=== PATIENT | male | born 1945 | race Caucasian/White ===

== ENCOUNTER → 2016-06-28 | Outpatient (CLI) | payer OTHER ==
[~2016-06-28] MED LIST: ALBU83IN INH; AMLO5TAB2 PO; ASPI81TA85 PO; AZIT250T3 PO; BUDE0.5S6 INH; CEFD1CAP8 PO; FURO20TA2 PO; NEUR300C PO; OMEP20CA3 PO; PERF20NE2 INH; POTA10TA34 PO; PRED10TA PO; PRED20TA PO; PROA1AER INH; VITA100066 PO
--- NOTE | 2016-06-28 09:18 | REP ---
Chest x-ray: Two views. History: Pulmonary disease with acute exacerbation. Comparison study: April 28, 2015. Findings: The lungs are quite hyperinflated consistent with evidence of COPD. Interstitial markings remain prominent diffusely. There is pleuroparenchymal fibrosis and bullous change in the right apex as on the prior radiograph. The heart is not enlarged. The aorta is a little calcific and somewhat tortuous. No significant bony abnormality is seen. Impression: Hyperinflation, diffuse interstitial fibrosis pattern and pleuroparenchymal scarring and bullous change right apex. No acute abnormality. Signed by Waldemar Lee MD 06/28/2016 11:16 A
[2016-06-28 10:18] LABS: BASO % 0.4 % (0.0-1.0); EOS # 0.1 K/mm3 (0.0-0.50); EOS % 0.8 % (0.0-3.0); LARGE UNSTAINED CELL # 0.1 K/mm3 (0.0-0.4); LARGE UNSTAINED CELL % 0.9 % (0.0-4.0); LYMPH # 1.4 K/mm3 (1.5-4.5); LYMPH % 13.7 % (24.0-44.0); MEAN CORPUSCULAR HEMOGLOBIN 32.9 pg (27.0-33.0); MEAN CORPUSCULAR HGB CONC 32.3 g/dl (32.0-36.5); MEAN CORPUSCULAR VOLUME 101.7 fl (80.0-96.0); MONO # 0.7 K/mm3 (0.0-0.8); MONO % 7.6 % (0.0-5.0); NEUTROPHILS # 7.5 K/mm3 (1.8-7.7); NEUTROPHILS % 76.6 % (36.0-66.0); PLATELET COUNT, AUTOMATED 390 k/mm3 (150-450); RED CELL DISTRIBUTION WIDTH 12.9 % (11.5-14.5); WHITE BLOOD COUNT 9.8 K/mm3 (4.0-10.0)
[2016-06-28 10:32] LABS: ALBUMIN 3.1 GM/DL (3.2-5.2); ALBUMIN/GLOBULIN RATIO 0.78 (1.00-1.93); ALKALINE PHOSPHATASE 79 U/L (45-117); ALT/SGPT 35 U/L (12-78); ANION GAP 7 MEQ/L (8-16); AST/SGOT 22 U/L (15-37); BILIRUBIN,TOTAL 0.3 MG/DL (0.2-1.0); BLOOD UREA NITROGEN 16 MG/DL (7-18); CALCIUM LEVEL 9.4 MG/DL (8.8-10.2); CARBON DIOXIDE LEVEL 40 MEQ/L (21-32); CHLORIDE LEVEL 97 MEQ/L (98-107); CREATININE FOR GFR 0.84 MG/DL (0.70-1.30); GLOMERULAR FILTRATION RATE > 60.0 (>49); GLUCOSE, FASTING 91 MG/DL (80-110); POTASSIUM SERUM 3.9 MEQ/L (3.5-5.1); SODIUM LEVEL 144 MEQ/L (136-145); TOTAL PROTEIN 7.1 GM/DL (6.4-8.2)
== END ==
LOC: M WUC 08:38
PROVIDERS: ATTEND Family Medicine
DX: J44.1 Chronic obstructive pulmonary disease with (acute) exacerbation (principal)

== ENCOUNTER 2017-03-26 07:29 | Inpatient (IN) | payer OTHER ==
[2017-03-26 08:02] LABS: BASO % 0.5 % (0.0-1.0); EOS # 0.1 10^3/uL (0.0-0.50); EOS % 0.7 % (0.0-3.0); HEMATOCRIT 42.2 % (42.0-52.0); HEMOGLOBIN 13.5 g/dl (14.0-18.0); IMMATURE GRANULOCYTE % 0.4 % (0-3.0); LYMPH # 1.3 10^3/uL (1.5-4.5); LYMPH % 18.1 % (24.0-44.0); MONO % 12.9 % (0.0-5.0); NEUTROPHILS % 67.4 % (36.0-66.0); PLATELET COUNT, AUTOMATED 258 10^3/uL (150-450); RED BLOOD COUNT 4.22 10^6/uL (4.30-6.10); RED CELL DISTRIBUTION WIDTH 13.2 % (11.5-14.5); WHITE BLOOD COUNT 7.4 10^3/uL (4.0-10.0)
[2017-03-26] MEDS: IPRATROPIUM 0.5MG/ALBUTEROL 2.5MG INH SOL UD 3ML (DUONEB)(J7620) NEB ×7 (08:10→23:27)
[2017-03-26 08:19] LABS: ABG BASE EXCESS 9.6 (-2.0-2.0); ABG HCO3 36.3 MEQ/L (22.0-26.0); ABG O2 SATURATION 93.9 % (95.0-99.0); ABG PARTIAL PRESSURE CO2 58.3 mmHg (35.0-45.0); ABG PARTIAL PRESSURE O2 66.5 mmHg (75.0-100.0); ABG STANDARD HCO3 33.2 MEQ/L (22.0-26.0); ABG TOTAL CO2 38.1 MEQ/L (23.0-31.0); ABG pH (ARTERIAL) 7.412 UNITS (7.350-7.450)
[2017-03-26 08:23] LABS: LACTIC ACID SEPSIS PROTOCOL 0.9 MMOL/L (0.4-2.0)
[2017-03-26 08:23] LABS: ANION GAP 6 MEQ/L (8-16); BLOOD UREA NITROGEN 23 MG/DL (7-18); CALCIUM LEVEL 8.8 MG/DL (8.8-10.2); CARBON DIOXIDE LEVEL 37 MEQ/L (21-32); CHLORIDE LEVEL 98 MEQ/L (98-107); CPK CREATINE PHOSPHOKINASE 148 U/L (39-308); CREATININE FOR GFR 1.08 MG/DL (0.70-1.30); GLOMERULAR FILTRATION RATE > 60.0 (>49); GLUCOSE, FASTING 107 MG/DL (70-100); MB/CK RELATIVE INDEX 0.67 (< OR =4); POTASSIUM SERUM 3.9 MEQ/L (3.5-5.1); SODIUM LEVEL 141 MEQ/L (136-145); TROPONIN I 0.73 NG/ML (< 0.10)
[2017-03-26] MEDS: ACETAMINOPHEN 650 MG SUPP PR (08:27)
[2017-03-26] MEDS: ACETAMINOPHEN TAB 650MG DOSE (2X325MG) PO (08:27)
[2017-03-26 08:46] LABS: INFLUENZA A AMPLIFICATION NEGATIVE (NEGATIVE); INFLUENZA B AMPLIFICATION NEGATIVE (NEGATIVE)
[2017-03-26] MEDS ORDERED: OCUVITE 1 TAB PO (09:00)
[2017-03-26 09:58] LABS: ETHYL ALCOHOL (ETHANOL) < 0.003 % (0.000-0.010)
[2017-03-26 10:38] LABS: CK-MB VALUE MASS 1.1 NG/ML (0.0-3.6); CPK CREATINE PHOSPHOKINASE 167 U/L (39-308); MB/CK RELATIVE INDEX 0.65 (< OR =4); TROPONIN I 0.66 NG/ML (< 0.10)
[2017-03-26] MEDS ORDERED: IPRATROPIUM 0.5MG/ALBUTEROL 2.5MG INH SOL UD 3ML (DUONEB)(J7620) NEB (11:30)
[2017-03-26] MEDS ORDERED: ACETAMINOPHEN TAB 650MG DOSE (2X325MG) PO (11:30)
[2017-03-26] MEDS ORDERED: ONDANSETRON 4MG/2ML VIAL (J2405) IV (11:30)
[2017-03-26] MEDS ORDERED: BENZONATATE 100 MG CAP PO (12:00)
[2017-03-26] MEDS ORDERED: guaiFENesin DM LIQ 10ML UD PO (12:00)
[2017-03-26] MEDS ORDERED: ALPRAZolam 0.25 MG TAB PO (12:30)
[2017-03-26] MEDS: FUROSEMIDE 20 MG TAB PO (12:49)
[2017-03-26] MEDS: OMEPRAZOLE 20 MG CAP PO (12:49)
[2017-03-26] MEDS: LISINOPRIL 10 MG TAB PO (12:50)
[2017-03-26] MEDS: methylPREDNISolone INJ 125 MG/2 ML VIAL (J2930) IV ×2 (12:50→20:34)
[2017-03-26] MEDS: GABAPENTIN 300 MG CAP PO ×2 (12:51→20:34)
[2017-03-26] MEDS ORDERED: HEPARIN SOD (PORCINE) 5000 UNITS/ML VIAL SC (14:00)
[2017-03-26] MEDS: ALPRAZolam 0.25 MG TAB PO (15:12)
[2017-03-26] MEDS: VITAMIN D 1,000 INTERNATIONAL UNITS TABLET PO (15:12)
[2017-03-26 16:27] LABS: CPK CREATINE PHOSPHOKINASE 225 U/L (39-308)
[2017-03-26 16:28] LABS: CK-MB VALUE MASS 2.2 NG/ML (0.0-3.6); MB/CK RELATIVE INDEX 0.97 (< OR =4)
[2017-03-26] MEDS: ATORVASTATIN 20 MG TAB PO (20:34)
[2017-03-26] MEDS: ALPRAZolam 0.5 MG TAB PO (20:34)
[2017-03-26] MEDS: SYMBICORT 160/4.5MCG INHALER 6GM INH (20:40)
[2017-03-27 00:44] LABS: CK-MB VALUE MASS 3.4 NG/ML (0.0-3.6); CPK CREATINE PHOSPHOKINASE 195 U/L (39-308); MB/CK RELATIVE INDEX 1.74 (< OR =4)
[2017-03-27] MEDS: IPRATROPIUM 0.5MG/ALBUTEROL 2.5MG INH SOL UD 3ML (DUONEB)(J7620) NEB ×6 (03:10→23:10)
[2017-03-27] MEDS: methylPREDNISolone INJ 125 MG/2 ML VIAL (J2930) IV ×3 (04:11→20:45)
[2017-03-27] MEDS: SYMBICORT 160/4.5MCG INHALER 6GM INH ×2 (07:41→18:36)
[2017-03-27] MEDS: ASPIRIN 81 MG ENTERIC TAB PO (08:09)
[2017-03-27] MEDS: ALPRAZolam 0.25 MG TAB PO (08:10)
[2017-03-27] MEDS: GABAPENTIN 300 MG CAP PO ×2 (08:10→20:45)
[2017-03-27] MEDS: FUROSEMIDE 20 MG TAB PO (08:10)
[2017-03-27] MEDS: OMEPRAZOLE 20 MG CAP PO (08:11)
[2017-03-27] MEDS: VITAMIN D 1,000 INTERNATIONAL UNITS TABLET PO (08:11)
[2017-03-27] MEDS: LISINOPRIL 10 MG TAB PO (08:11)
[2017-03-27 08:18] LABS: HEMATOCRIT 39.9 % (42.0-52.0); HEMOGLOBIN 12.8 g/dl (14.0-18.0); MEAN CORPUSCULAR HEMOGLOBIN 31.4 pg (27.0-33.0); MEAN CORPUSCULAR HGB CONC 32.1 g/dl (32.0-36.5); MEAN CORPUSCULAR VOLUME 97.8 fl (80.0-96.0); PLATELET COUNT, AUTOMATED 245 10^3/uL (150-450); RED BLOOD COUNT 4.08 10^6/uL (4.30-6.10); RED CELL DISTRIBUTION WIDTH 13.1 % (11.5-14.5); WHITE BLOOD COUNT 12.6 10^3/uL (4.0-10.0)
[2017-03-27 08:42] LABS: ALBUMIN 2.8 GM/DL (3.2-5.2); ALKALINE PHOSPHATASE 61 U/L (45-117); ALT/SGPT 21 U/L (12-78); ANION GAP 10 MEQ/L (8-16); AST/SGOT 23 U/L (7-37); BILIRUBIN,TOTAL 0.2 MG/DL (0.2-1.0); BLOOD UREA NITROGEN 31 MG/DL (7-18); CALCIUM LEVEL 8.8 MG/DL (8.8-10.2); CARBON DIOXIDE LEVEL 36 MEQ/L (21-32); CHLORIDE LEVEL 95 MEQ/L (98-107); CPK CREATINE PHOSPHOKINASE 203 U/L (39-308); CREATININE FOR GFR 1.08 MG/DL (0.70-1.30); GLOMERULAR FILTRATION RATE > 60.0 (>49); GLUCOSE, FASTING 164 MG/DL (70-100); MAGNESIUM LEVEL 2.1 MG/DL (1.8-2.4); POTASSIUM SERUM 3.7 MEQ/L (3.5-5.1); SODIUM LEVEL 141 MEQ/L (136-145); TOTAL PROTEIN 6.8 GM/DL (6.4-8.2); TROPONIN I 0.14 NG/ML (< 0.10)
[2017-03-27 08:43] LABS: MB/CK RELATIVE INDEX 1.97 (< OR =4)
[2017-03-27] MEDS: ATORVASTATIN 20 MG TAB PO (20:45)
[2017-03-27] MEDS: ALPRAZolam 0.5 MG TAB PO (20:45)
[2017-03-28] MEDS: IPRATROPIUM 0.5MG/ALBUTEROL 2.5MG INH SOL UD 3ML (DUONEB)(J7620) NEB ×6 (03:21→23:53)
[2017-03-28] MEDS: methylPREDNISolone INJ 125 MG/2 ML VIAL (J2930) IV ×3 (04:22→20:54)
[2017-03-28 05:42] LABS: HEMATOCRIT 36.5 % (42.0-52.0); HEMOGLOBIN 11.9 g/dl (14.0-18.0); MEAN CORPUSCULAR HEMOGLOBIN 31.6 pg (27.0-33.0); MEAN CORPUSCULAR HGB CONC 32.6 g/dl (32.0-36.5); MEAN CORPUSCULAR VOLUME 96.8 fl (80.0-96.0); PLATELET COUNT, AUTOMATED 263 10^3/uL (150-450); RED BLOOD COUNT 3.77 10^6/uL (4.30-6.10); RED CELL DISTRIBUTION WIDTH 13.1 % (11.5-14.5); WHITE BLOOD COUNT 12.8 10^3/uL (4.0-10.0)
[2017-03-28 06:00] LABS: ALBUMIN 2.6 GM/DL (3.2-5.2); ALBUMIN/GLOBULIN RATIO 0.59 (1.00-1.93); ALKALINE PHOSPHATASE 58 U/L (45-117); ALT/SGPT 20 U/L (12-78); ANION GAP 7 MEQ/L (8-16); AST/SGOT 17 U/L (7-37); BILIRUBIN,TOTAL 0.2 MG/DL (0.2-1.0); BLOOD UREA NITROGEN 33 MG/DL (7-18); CALCIUM LEVEL 9.5 MG/DL (8.8-10.2); CARBON DIOXIDE LEVEL 37 MEQ/L (21-32); CHLORIDE LEVEL 97 MEQ/L (98-107); CREATININE FOR GFR 0.91 MG/DL (0.70-1.30); GLOMERULAR FILTRATION RATE > 60.0 (>49); GLUCOSE, FASTING 172 MG/DL (70-100); MAGNESIUM LEVEL 2.3 MG/DL (1.8-2.4); POTASSIUM SERUM 3.8 MEQ/L (3.5-5.1); SODIUM LEVEL 141 MEQ/L (136-145)
[2017-03-28] MEDS: SYMBICORT 160/4.5MCG INHALER 6GM INH ×2 (07:18→21:24)
[2017-03-28] MEDS: VITAMIN D 1,000 INTERNATIONAL UNITS TABLET PO (08:58)
[2017-03-28] MEDS: FUROSEMIDE 20 MG TAB PO (08:58)
[2017-03-28] MEDS: OMEPRAZOLE 20 MG CAP PO (08:58)
[2017-03-28] MEDS: LISINOPRIL 10 MG TAB PO (09:00)
[2017-03-28] MEDS: ASPIRIN 81 MG ENTERIC TAB PO (09:01)
[2017-03-28] MEDS: GABAPENTIN 300 MG CAP PO ×2 (09:01→20:54)
[2017-03-28] MEDS: ALPRAZolam 0.5 MG TAB PO (20:54)
[2017-03-28] MEDS: ATORVASTATIN 20 MG TAB PO (20:54)
[2017-03-29] MEDS: IPRATROPIUM 0.5MG/ALBUTEROL 2.5MG INH SOL UD 3ML (DUONEB)(J7620) NEB ×5 (03:45→20:00)
[2017-03-29] MEDS: methylPREDNISolone INJ 125 MG/2 ML VIAL (J2930) IV ×2 (04:22→16:08)
[2017-03-29 06:09] LABS: HEMATOCRIT 35.7 % (42.0-52.0); HEMOGLOBIN 11.6 g/dl (14.0-18.0); MEAN CORPUSCULAR HEMOGLOBIN 31.9 pg (27.0-33.0); MEAN CORPUSCULAR HGB CONC 32.5 g/dl (32.0-36.5); MEAN CORPUSCULAR VOLUME 98.1 fl (80.0-96.0); PLATELET COUNT, AUTOMATED 262 10^3/uL (150-450); RED BLOOD COUNT 3.64 10^6/uL (4.30-6.10); RED CELL DISTRIBUTION WIDTH 13.2 % (11.5-14.5); WHITE BLOOD COUNT 8.9 10^3/uL (4.0-10.0)
[2017-03-29 06:32] LABS: ALBUMIN 2.3 GM/DL (3.2-5.2); ALBUMIN/GLOBULIN RATIO 0.53 (1.00-1.93); ALKALINE PHOSPHATASE 57 U/L (45-117); ALT/SGPT 20 U/L (12-78); ANION GAP 5 MEQ/L (8-16); AST/SGOT 13 U/L (7-37); BILIRUBIN,TOTAL 0.2 MG/DL (0.2-1.0); BLOOD UREA NITROGEN 30 MG/DL (7-18); CALCIUM LEVEL 9.6 MG/DL (8.8-10.2); CARBON DIOXIDE LEVEL 38 MEQ/L (21-32); CHLORIDE LEVEL 97 MEQ/L (98-107); GLOMERULAR FILTRATION RATE > 60.0 (>49); GLUCOSE, FASTING 148 MG/DL (70-100); MAGNESIUM LEVEL 2.6 MG/DL (1.8-2.4); POTASSIUM SERUM 3.9 MEQ/L (3.5-5.1); SODIUM LEVEL 140 MEQ/L (136-145); TOTAL PROTEIN 6.6 GM/DL (6.4-8.2)
[2017-03-29] MEDS: SYMBICORT 160/4.5MCG INHALER 6GM INH ×2 (07:27→20:25)
[2017-03-29] MEDS: GABAPENTIN 300 MG CAP PO ×2 (09:33→21:20)
[2017-03-29] MEDS: VITAMIN D 1,000 INTERNATIONAL UNITS TABLET PO (09:33)
[2017-03-29] MEDS: ASPIRIN 81 MG ENTERIC TAB PO (09:33)
[2017-03-29] MEDS: LISINOPRIL 10 MG TAB PO (09:33)
[2017-03-29] MEDS: OMEPRAZOLE 20 MG CAP PO (09:34)
[2017-03-29] MEDS: FUROSEMIDE 20 MG TAB PO (09:34)
[2017-03-29] MEDS: ALPRAZolam 0.5 MG TAB PO (21:20)
[2017-03-29] MEDS: ATORVASTATIN 20 MG TAB PO (21:20)
[2017-03-30] MEDS: IPRATROPIUM 0.5MG/ALBUTEROL 2.5MG INH SOL UD 3ML (DUONEB)(J7620) NEB ×5 (02:41→15:08)
[2017-03-30] MEDS: methylPREDNISolone INJ 125 MG/2 ML VIAL (J2930) IV ×2 (03:49→15:32)
[2017-03-30 07:06] LABS: HEMATOCRIT 36.8 % (42.0-52.0); HEMOGLOBIN 11.7 g/dl (14.0-18.0); MEAN CORPUSCULAR HEMOGLOBIN 31.2 pg (27.0-33.0); MEAN CORPUSCULAR HGB CONC 31.8 g/dl (32.0-36.5); MEAN CORPUSCULAR VOLUME 98.1 fl (80.0-96.0); PLATELET COUNT, AUTOMATED 314 10^3/uL (150-450); RED BLOOD COUNT 3.75 10^6/uL (4.30-6.10); RED CELL DISTRIBUTION WIDTH 13.2 % (11.5-14.5); WHITE BLOOD COUNT 12.4 10^3/uL (4.0-10.0)
[2017-03-30 07:26] LABS: ALBUMIN 2.4 GM/DL (3.2-5.2); ALBUMIN/GLOBULIN RATIO 0.55 (1.00-1.93); ALKALINE PHOSPHATASE 62 U/L (45-117); ALT/SGPT 20 U/L (12-78); ANION GAP 4 MEQ/L (8-16); AST/SGOT 10 U/L (7-37); BILIRUBIN,TOTAL 0.3 MG/DL (0.2-1.0); BLOOD UREA NITROGEN 34 MG/DL (7-18); CALCIUM LEVEL 9.4 MG/DL (8.8-10.2); CARBON DIOXIDE LEVEL 38 MEQ/L (21-32); CHLORIDE LEVEL 99 MEQ/L (98-107); CREATININE FOR GFR 0.79 MG/DL (0.70-1.30); GLOMERULAR FILTRATION RATE > 60.0 (>49); GLUCOSE, FASTING 138 MG/DL (70-100); MAGNESIUM LEVEL 2.4 MG/DL (1.8-2.4); POTASSIUM SERUM 4.1 MEQ/L (3.5-5.1); SODIUM LEVEL 141 MEQ/L (136-145); TOTAL PROTEIN 6.8 GM/DL (6.4-8.2)
[2017-03-30] MEDS: SYMBICORT 160/4.5MCG INHALER 6GM INH (08:14)
[2017-03-30] MEDS: OMEPRAZOLE 20 MG CAP PO (09:10)
[2017-03-30] MEDS: GABAPENTIN 300 MG CAP PO (09:10)
[2017-03-30] MEDS: FUROSEMIDE 20 MG TAB PO (09:11)
[2017-03-30] MEDS: VITAMIN D 1,000 INTERNATIONAL UNITS TABLET PO (09:11)
[2017-03-30] MEDS: ASPIRIN 81 MG ENTERIC TAB PO (09:11)
[2017-03-30] MEDS: LISINOPRIL 10 MG TAB PO (09:11)
== END 2017-03-30 17:00 | disposition home or self-care (01) | DRG 202 ==
LOC: M MS5PR 03-29 16:44 → M ED 07:29 → M ED INP 11:16 → M PCU 13:50
DX: J20.5 Acute bronchitis due to respiratory syncytial virus (principal); J44.1 Chronic obstructive pulmonary disease with (acute) exacerbation; J96.11 Chronic respiratory failure with hypoxia; I31.9 Disease of pericardium, unspecified; I10 Essential (primary) hypertension; K21.9 Gastro-esophageal reflux disease without esophagitis; Z99.81 Dependence on supplemental oxygen; Z79.52 Long term (current) use of systemic steroids; Z88.1 Allergy status to other antibiotic agents; Z79.899 Other long term (current) drug therapy; Z87.891 Personal history of nicotine dependence; G62.9 Polyneuropathy, unspecified

== ENCOUNTER 2017-12-17 11:04 | Emergency (ER) | payer OTHER ==
[2017-12-17] MEDS: ACETAMINOPHEN 325 MG TAB PO (11:46)
[2017-12-17] MEDS: IBUPROFEN 600 MG TAB PO (11:46)
[2017-12-17 11:47] LABS: ABG BASE EXCESS 10.6 (-2.0-2.0); ABG HCO3 36.7 MEQ/L (22.0-26.0); ABG O2 SATURATION 98.2 % (95.0-99.0); ABG PARTIAL PRESSURE CO2 55.1 mmHg (35.0-45.0); ABG PARTIAL PRESSURE O2 104.5 mmHg (75.0-100.0); ABG STANDARD HCO3 34.4 MEQ/L (22.0-26.0); ABG TOTAL CO2 38.4 MEQ/L (23.0-31.0); ABG pH (ARTERIAL) 7.441 UNITS (7.350-7.450); BASO # 0.1 10^3/uL (0.0-0.2); BASO % 0.5 % (0.0-1.0); EOS # 0.2 10^3/uL (0.0-0.50); EOS % 1.5 % (0.0-3.0); HEMATOCRIT 37.7 % (42.0-52.0); HEMOGLOBIN 11.8 g/dl (13.5-17.5); IMMATURE GRANULOCYTE % 0.4 % (0-3.0); LYMPH # 1.4 10^3/uL (1.5-4.5); MEAN CORPUSCULAR HEMOGLOBIN 31.9 pg (27.0-33.0); MEAN CORPUSCULAR HGB CONC 31.3 g/dl (32.0-36.5); MEAN CORPUSCULAR VOLUME 101.9 fl (80.0-96.0); MONO # 1.3 10^3/uL (0.0-0.8); MONO % 11.6 % (0.0-5.0); NEUTROPHILS # 8.4 10^3/uL (1.8-7.7); PLATELET COUNT, AUTOMATED 341 10^3/uL (150-450); RED CELL DISTRIBUTION WIDTH 13.2 % (11.5-14.5); WHITE BLOOD COUNT 11.3 10^3/uL (4.0-10.0)
[2017-12-17 12:01] LABS: INR 1.21; PROTHROMBIN TIME 15.5 SECONDS (12.1-14.4)
[2017-12-17 12:02] LABS: PARTIAL THROMBOPLASTIN TIME 28.5 SECONDS (25.4-37.6)
[2017-12-17 12:34] LABS: ALBUMIN 2.3 GM/DL (3.2-5.2); ALBUMIN/GLOBULIN RATIO 0.45 (1.00-1.93); ALKALINE PHOSPHATASE 106 U/L (45-117); ALT/SGPT 30 U/L (12-78); AMYLASE 59 U/L (25-115); ANION GAP 5 MEQ/L (8-16); AST/SGOT 25 U/L (7-37); BILIRUBIN,DIRECT 0.1 MG/DL (0.0-0.2); BILIRUBIN,TOTAL 0.5 MG/DL (0.2-1.0); BLOOD UREA NITROGEN 16 MG/DL (7-18); CALCIUM LEVEL 9.1 MG/DL (8.8-10.2); CARBON DIOXIDE LEVEL 37 MEQ/L (21-32); CHLORIDE LEVEL 98 MEQ/L (98-107); CPK CREATINE PHOSPHOKINASE 44 U/L (39-308); CREATININE FOR GFR 0.87 MG/DL (0.70-1.30); GLOMERULAR FILTRATION RATE > 60.0 (>42); GLUCOSE, FASTING 109 MG/DL (70-100); MB/CK RELATIVE INDEX 2.73 (< OR =4); POTASSIUM SERUM 4.2 MEQ/L (3.5-5.1); SODIUM LEVEL 140 MEQ/L (136-145); TOTAL PROTEIN 7.4 GM/DL (6.4-8.2); TROPONIN I < 0.02 NG/ML (< 0.10)
[2017-12-17 12:35] LABS: LACTIC ACID SEPSIS PROTOCOL 2.1 MMOL/L (0.4-2.0)
== END 2017-12-17 17:05 | disposition home or self-care (01) ==
LOC: M ED 11:04
DX: J44.1 Chronic obstructive pulmonary disease with (acute) exacerbation (principal); J20.6 Acute bronchitis due to rhinovirus; I10 Essential (primary) hypertension; K21.9 Gastro-esophageal reflux disease without esophagitis; B02.29 Other postherpetic nervous system involvement; Z79.899 Other long term (current) drug therapy; Z88.1 Allergy status to other antibiotic agents; Z87.891 Personal history of nicotine dependence
CPT/HCPCS: 71045

== ENCOUNTER 2018-02-03 10:05 | Inpatient (IN) | payer OTHER ==
[2018-02-03 10:36] LABS: BASO % 0.3 % (0.0-1.0); EOS # 0.2 10^3/uL (0.0-0.50); EOS % 1.3 % (0.0-3.0); HEMATOCRIT 37.7 % (42.0-52.0); HEMOGLOBIN 11.8 g/dl (13.5-17.5); IMMATURE GRANULOCYTE % 0.7 % (0-3.0); LYMPH # 1.1 10^3/uL (1.5-4.5); LYMPH % 8.4 % (24.0-44.0); MEAN CORPUSCULAR HEMOGLOBIN 32.1 pg (27.0-33.0); MEAN CORPUSCULAR HGB CONC 31.3 g/dl (32.0-36.5); MEAN CORPUSCULAR VOLUME 102.4 fl (80.0-96.0); MONO # 0.9 10^3/uL (0.0-0.8); MONO % 6.4 % (0.0-5.0); NEUTROPHILS # 11.1 10^3/uL (1.8-7.7); NEUTROPHILS % 82.9 % (36.0-66.0); PLATELET COUNT, AUTOMATED 276 10^3/uL (150-450); RED BLOOD COUNT 3.68 10^6/uL (4.30-6.10); RED CELL DISTRIBUTION WIDTH 13.9 % (11.5-14.5); WHITE BLOOD COUNT 13.4 10^3/uL (4.0-10.0)
[2018-02-03] MEDS: NS 1,000 ML IV ×3 (10:44→16:10)
[2018-02-03] MEDS: methylPREDNISolone INJ 40 MG/1 ML VIAL (J2920) IV ×2 (10:45→23:10)
[2018-02-03] MEDS: ACETAMINOPHEN TAB 650MG DOSE (2X325MG) PO (10:45)
[2018-02-03] MEDS: ALBUTEROL SULFATE 2.5 MG/0.5 ML INH NEB SOLN INH (10:46)
[2018-02-03] MEDS: IPRATROPIUM 0.5MG/ALBUTEROL 2.5MG INH SOL UD 3ML (DUONEB)(J7620) NEB ×3 (10:47→20:00)
[2018-02-03 11:01] LABS: INFLUENZA A AMPLIFICATION NEGATIVE (NEGATIVE); INFLUENZA B AMPLIFICATION NEGATIVE (NEGATIVE)
[2018-02-03 11:08] LABS: LACTIC ACID SEPSIS PROTOCOL 2.1 MMOL/L (0.4-2.0)
[2018-02-03 11:09] LABS: ALBUMIN 2.7 GM/DL (3.2-5.2); ALBUMIN/GLOBULIN RATIO 0.75 (1.00-1.93); ALKALINE PHOSPHATASE 65 U/L (45-117); ALT/SGPT 20 U/L (12-78); ANION GAP 5 MEQ/L (8-16); AST/SGOT 20 U/L (7-37); BILIRUBIN,DIRECT 0.1 MG/DL (0.0-0.2); BILIRUBIN,TOTAL 0.5 MG/DL (0.2-1.0); BLOOD UREA NITROGEN 19 MG/DL (7-18); CALCIUM LEVEL 8.5 MG/DL (8.8-10.2); CARBON DIOXIDE LEVEL 35 MEQ/L (21-32); CHLORIDE LEVEL 101 MEQ/L (98-107); CPK CREATINE PHOSPHOKINASE 92 U/L (39-308); CREATININE FOR GFR 0.91 MG/DL (0.70-1.30); GLOMERULAR FILTRATION RATE > 60.0 (>42); GLUCOSE, FASTING 116 MG/DL (70-100); MB/CK RELATIVE INDEX 1.41 (< OR =4); NT-PRO BNP 421 PG/ML (<125); POTASSIUM SERUM 4.4 MEQ/L (3.5-5.1); SODIUM LEVEL 141 MEQ/L (136-145); TOTAL PROTEIN 6.3 GM/DL (6.4-8.2); TROPONIN I 0.05 NG/ML (< 0.10)
[2018-02-03 11:11] LABS: ABG BASE EXCESS 10.7 (-2.0-2.0); ABG O2 SATURATION 91.9 % (95.0-99.0); ABG PARTIAL PRESSURE CO2 56.1 mmHg (35.0-45.0); ABG STANDARD HCO3 34.3 MEQ/L (22.0-26.0); ABG TOTAL CO2 38.7 MEQ/L (23.0-31.0); ABG pH (ARTERIAL) 7.437 UNITS (7.350-7.450)
[2018-02-03] MEDS ORDERED: ACETAMINOPHEN 500 MG TAB PO (11:30)
[2018-02-03] MEDS ORDERED: ALBUTEROL SULFATE 2.5 MG/0.5 ML INH NEB SOLN NEB (11:30)
[2018-02-03] MEDS: PIPERACILLIN/TAZOBACTAM SOD 3.375 GM in D5W MINI-BAG PLUS 50 ML IV ×3 (11:45→23:11)
[2018-02-03 19:52] LABS: LACTIC ACID SEPSIS PROTOCOL 3.6 MMOL/L (0.4-2.0)
[2018-02-03] MEDS: GABAPENTIN 300 MG CAP PO (20:13)
[2018-02-03] MEDS: SENOKOT S TAB PO (20:13)
[2018-02-03] MEDS: ALPRAZolam 0.5 MG TAB PO (20:13)
[2018-02-03 20:17] LABS: ANION GAP 7 MEQ/L (8-16); BLOOD UREA NITROGEN 20 MG/DL (7-18); CALCIUM LEVEL 8.3 MG/DL (8.8-10.2); CARBON DIOXIDE LEVEL 32 MEQ/L (21-32); CHLORIDE LEVEL 104 MEQ/L (98-107); CREATININE FOR GFR 1.18 MG/DL (0.70-1.30); GLOMERULAR FILTRATION RATE > 60.0 (>42); GLUCOSE, FASTING 245 MG/DL (70-100); MAGNESIUM LEVEL 1.8 MG/DL (1.8-2.4); POTASSIUM SERUM 4.3 MEQ/L (3.5-5.1); SODIUM LEVEL 143 MEQ/L (136-145)
[2018-02-03] MEDS: BUDESONIDE 0.5 MG/2 ML INHALATION SUSPENSION INH (21:01)
[2018-02-03] MEDS: FORMOTEROL FUMARATE 20 MCG/2 ML INHALATION SOLUTION (PERFOROMIST) INH (21:01)
[2018-02-04] MEDS: PIPERACILLIN/TAZOBACTAM SOD 3.375 GM in D5W MINI-BAG PLUS 50 ML IV ×4 (05:39→23:47)
[2018-02-04] MEDS: NS 1,000 ML IV (05:45)
[2018-02-04 05:49] LABS: BASO % 0.1 % (0.0-1.0); HEMATOCRIT 33.7 % (42.0-52.0); HEMOGLOBIN 10.5 g/dl (13.5-17.5); IMMATURE GRANULOCYTE % 0.8 % (0-3.0); LYMPH # 0.3 10^3/uL (1.5-4.5); LYMPH % 2.1 % (24.0-44.0); MEAN CORPUSCULAR HEMOGLOBIN 31.8 pg (27.0-33.0); MEAN CORPUSCULAR HGB CONC 31.2 g/dl (32.0-36.5); MEAN CORPUSCULAR VOLUME 102.1 fl (80.0-96.0); MONO # 0.3 10^3/uL (0.0-0.8); NEUTROPHILS # 15.7 10^3/uL (1.8-7.7); PLATELET COUNT, AUTOMATED 263 10^3/uL (150-450); RED CELL DISTRIBUTION WIDTH 13.9 % (11.5-14.5); WHITE BLOOD COUNT 16.5 10^3/uL (4.0-10.0)
[2018-02-04 06:11] LABS: ANION GAP 4 MEQ/L (8-16); BLOOD UREA NITROGEN 19 MG/DL (7-18); CALCIUM LEVEL 8.6 MG/DL (8.8-10.2); CARBON DIOXIDE LEVEL 32 MEQ/L (21-32); CHLORIDE LEVEL 106 MEQ/L (98-107); CREATININE FOR GFR 0.83 MG/DL (0.70-1.30); GLOMERULAR FILTRATION RATE > 60.0 (>42); GLUCOSE, FASTING 140 MG/DL (70-100); SODIUM LEVEL 142 MEQ/L (136-145)
[2018-02-04] MEDS: BUDESONIDE 0.5 MG/2 ML INHALATION SUSPENSION INH (07:20)
[2018-02-04] MEDS: FORMOTEROL FUMARATE 20 MCG/2 ML INHALATION SOLUTION (PERFOROMIST) INH (07:20)
[2018-02-04] MEDS: IPRATROPIUM 0.5MG/ALBUTEROL 2.5MG INH SOL UD 3ML (DUONEB)(J7620) NEB ×3 (07:21→19:48)
[2018-02-04] MEDS: OMEPRAZOLE 20 MG CAP PO (08:15)
[2018-02-04] MEDS: ENOXAPARIN 40 MG/0.4 ML SYRINGE (J1650) SC (08:16)
[2018-02-04] MEDS: SENOKOT S TAB PO ×2 (08:16→21:32)
[2018-02-04] MEDS: methylPREDNISolone INJ 40 MG/1 ML VIAL (J2920) IV ×2 (11:14→23:47)
[2018-02-04] MEDS: GABAPENTIN 300 MG CAP PO ×2 (11:14→21:32)
[2018-02-04] MEDS: CEFDINIR 300 MG CAP (OMNICEF) PO ×2 (11:14→21:33)
[2018-02-04] MEDS: ALPRAZolam 0.25 MG TAB PO (21:33)
[2018-02-05] MEDS: IPRATROPIUM 0.5MG/ALBUTEROL 2.5MG INH SOL UD 3ML (DUONEB)(J7620) NEB ×5 (00:01→20:00)
[2018-02-05] MEDS: FORMOTEROL FUMARATE 20 MCG/2 ML INHALATION SOLUTION (PERFOROMIST) INH ×3 (00:01→21:22)
[2018-02-05] MEDS: BUDESONIDE 0.5 MG/2 ML INHALATION SUSPENSION INH ×3 (00:01→21:22)
[2018-02-05] MEDS: PIPERACILLIN/TAZOBACTAM SOD 3.375 GM in D5W MINI-BAG PLUS 50 ML IV ×2 (05:36→12:36)
[2018-02-05 08:49] LABS: BASO % 0.1 % (0.0-1.0); HEMATOCRIT 32.9 % (42.0-52.0); HEMOGLOBIN 10.3 g/dl (13.5-17.5); IMMATURE GRANULOCYTE % 0.7 % (0-3.0); LYMPH # 0.3 10^3/uL (1.5-4.5); MEAN CORPUSCULAR HEMOGLOBIN 31.8 pg (27.0-33.0); MEAN CORPUSCULAR HGB CONC 31.3 g/dl (32.0-36.5); MEAN CORPUSCULAR VOLUME 101.5 fl (80.0-96.0); MONO # 0.5 10^3/uL (0.0-0.8); MONO % 2.8 % (0.0-5.0); NEUTROPHILS # 15.3 10^3/uL (1.8-7.7); NEUTROPHILS % 94.4 % (36.0-66.0); PLATELET COUNT, AUTOMATED 270 10^3/uL (150-450); RED BLOOD COUNT 3.24 10^6/uL (4.30-6.10); RED CELL DISTRIBUTION WIDTH 14.3 % (11.5-14.5); WHITE BLOOD COUNT 16.3 10^3/uL (4.0-10.0)
[2018-02-05] MEDS: ENOXAPARIN 40 MG/0.4 ML SYRINGE (J1650) SC (09:00)
[2018-02-05 09:18] LABS: ALBUMIN 2.3 GM/DL (3.2-5.2); ALBUMIN/GLOBULIN RATIO 0.59 (1.00-1.93); ALKALINE PHOSPHATASE 50 U/L (45-117); ALT/SGPT 14 U/L (12-78); ANION GAP 5 MEQ/L (8-16); AST/SGOT 10 U/L (7-37); BILIRUBIN,TOTAL 0.2 MG/DL (0.2-1.0); BLOOD UREA NITROGEN 16 MG/DL (7-18); CARBON DIOXIDE LEVEL 32 MEQ/L (21-32); CHLORIDE LEVEL 107 MEQ/L (98-107); CREATININE FOR GFR 0.83 MG/DL (0.70-1.30); GLOMERULAR FILTRATION RATE > 60.0 (>42); GLUCOSE, FASTING 138 MG/DL (70-100); POTASSIUM SERUM 4.1 MEQ/L (3.5-5.1); SODIUM LEVEL 144 MEQ/L (136-145); TOTAL PROTEIN 6.2 GM/DL (6.4-8.2)
[2018-02-05] MEDS: CEFDINIR 300 MG CAP (OMNICEF) PO ×2 (10:27→20:50)
[2018-02-05] MEDS: methylPREDNISolone INJ 40 MG/1 ML VIAL (J2920) IV ×2 (10:28→19:01)
[2018-02-05] MEDS: GABAPENTIN 300 MG CAP PO ×2 (10:28→20:50)
[2018-02-05] MEDS: guaiFENesin ER 600 MG TAB PO ×2 (10:28→20:51)
[2018-02-05] MEDS: SENOKOT S TAB PO ×2 (10:28→20:50)
[2018-02-05] MEDS: OMEPRAZOLE 20 MG CAP PO (10:28)
[2018-02-05] MEDS: ALPRAZolam 0.25 MG TAB PO (20:50)
[2018-02-06] MEDS: IPRATROPIUM 0.5MG/ALBUTEROL 2.5MG INH SOL UD 3ML (DUONEB)(J7620) NEB ×3 (00:20→07:15)
[2018-02-06] MEDS: methylPREDNISolone INJ 40 MG/1 ML VIAL (J2920) IV (03:15)
[2018-02-06] MEDS: FORMOTEROL FUMARATE 20 MCG/2 ML INHALATION SOLUTION (PERFOROMIST) INH (07:14)
[2018-02-06] MEDS: BUDESONIDE 0.5 MG/2 ML INHALATION SUSPENSION INH (07:14)
[2018-02-06 08:29] LABS: ALBUMIN 2.4 GM/DL (3.2-5.2); ALKALINE PHOSPHATASE 53 U/L (45-117); ALT/SGPT 15 U/L (12-78); ANION GAP 5 MEQ/L (8-16); AST/SGOT 11 U/L (7-37); BILIRUBIN,TOTAL 0.2 MG/DL (0.2-1.0); BLOOD UREA NITROGEN 24 MG/DL (7-18); C REACTIVE PROTEIN QUANTITATIV 4.46 MG/DL (0.00-0.30); CARBON DIOXIDE LEVEL 34 MEQ/L (21-32); CHLORIDE LEVEL 105 MEQ/L (98-107); CREATININE FOR GFR 0.83 MG/DL (0.70-1.30); GLOMERULAR FILTRATION RATE > 60.0 (>42); GLUCOSE, FASTING 140 MG/DL (70-100); MAGNESIUM LEVEL 2.2 MG/DL (1.8-2.4); POTASSIUM SERUM 4.1 MEQ/L (3.5-5.1); SODIUM LEVEL 144 MEQ/L (136-145); TOTAL PROTEIN 6.4 GM/DL (6.4-8.2)
[2018-02-06 08:33] LABS: BASO % 0.1 % (0.0-1.0); HEMATOCRIT 35.7 % (42.0-52.0); HEMOGLOBIN 11.2 g/dl (13.5-17.5); IMMATURE GRANULOCYTE % 1.3 % (0-3.0); LYMPH # 0.3 10^3/uL (1.5-4.5); MEAN CORPUSCULAR HEMOGLOBIN 32.2 pg (27.0-33.0); MEAN CORPUSCULAR HGB CONC 31.4 g/dl (32.0-36.5); MEAN CORPUSCULAR VOLUME 102.6 fl (80.0-96.0); MONO # 0.2 10^3/uL (0.0-0.8); MONO % 1.9 % (0.0-5.0); NEUTROPHILS # 11.2 10^3/uL (1.8-7.7); NEUTROPHILS % 94.3 % (36.0-66.0); PLATELET COUNT, AUTOMATED 311 10^3/uL (150-450); RED BLOOD COUNT 3.48 10^6/uL (4.30-6.10); RED CELL DISTRIBUTION WIDTH 14.5 % (11.5-14.5); WHITE BLOOD COUNT 11.9 10^3/uL (4.0-10.0)
[2018-02-06] MEDS: OMEPRAZOLE 20 MG CAP PO (08:35)
[2018-02-06] MEDS: CEFDINIR 300 MG CAP (OMNICEF) PO (08:35)
[2018-02-06] MEDS: guaiFENesin ER 600 MG TAB PO (08:35)
[2018-02-06] MEDS: SENOKOT S TAB PO (08:36)
[2018-02-06] MEDS: GABAPENTIN 300 MG CAP PO (08:36)
[2018-02-06] MEDS: ENOXAPARIN 40 MG/0.4 ML SYRINGE (J1650) SC (08:36)
[2018-02-06 09:46] LABS: POSITIVE DIFF POS FLAG
[2018-02-06 09:47] LABS: LYMPH % 2.4 % (24.0-44.0)
== END 2018-02-06 09:55 | disposition home or self-care (01) | DRG 190 ==
LOC: M ED 10:05 → M ED INP 11:29 → M MSPAV 13:54
DX: J44.1 Chronic obstructive pulmonary disease with (acute) exacerbation (principal); J18.9 Pneumonia, unspecified organism; J96.11 Chronic respiratory failure with hypoxia; J96.12 Chronic respiratory failure with hypercapnia; E87.2 Acidosis; D72.829 Elevated white blood cell count, unspecified; I10 Essential (primary) hypertension; Z79.899 Other long term (current) drug therapy; Z88.8 Allergy status to other drugs, medicaments and biological substances; Z79.52 Long term (current) use of systemic steroids; K21.9 Gastro-esophageal reflux disease without esophagitis

== ENCOUNTER 2018-04-03 06:50 | Inpatient (IN) | payer MEDICARE, OTHER ==
[~2018-04-03] VITALS: Ht 172.7 cm; Wt 67.2 kg
[~2018-04-03 06:50] MED LIST changes: +ALPR0.25 PO; -AMLO5TAB2 PO; +AMLO5TAB6 PO; +AMOX500C PO; +AZIT-12 PO; -AZIT250T3 PO; +AZIT500T2 PO; +CEFD300CAP PO; +CENT1TAB13 PO; +GABA-843 PO; +IPRA0.00 INH; +LISI10TA4 PO; +MUCI1TAB18 PO; +MUCI600T31 PO; +OMEP40CA2 PO; -POTA10TA34 PO; +POTA10TA67 PO; +PRED10TA2 PO; -PROA1AER INH; +PROAAER10 INH; +SYMB16INH INH; +VENTAER INH
[2018-04-03] MEDS ORDERED: FURO20TA2 PO (07:10)
[2018-04-03] MEDS ORDERED: ACETAMINOPHEN TAB 650MG DOSE (2X325MG) PO ONE (07:30)
[2018-04-03] MEDS ORDERED: IPRATROPIUM 0.5MG/ALBUTEROL 2.5MG INH SOL UD 3ML (DUONEB)(J7620) NEB ONE (07:30)
[2018-04-03 07:37] LABS: BASO % 0.2 % (0.0-1.0); EOS # 0.1 10^3/uL (0.0-0.50); EOS % 0.5 % (0.0-3.0); HEMATOCRIT 37.7 % (42.0-52.0); HEMOGLOBIN 12.1 g/dl (13.5-17.5); LYMPH # 1.4 10^3/uL (1.5-4.5); LYMPH % 10.5 % (24.0-44.0); MEAN CORPUSCULAR HEMOGLOBIN 31.8 pg (27.0-33.0); MEAN CORPUSCULAR HGB CONC 32.1 g/dl (32.0-36.5); MEAN CORPUSCULAR VOLUME 99.2 fl (80.0-96.0); MONO # 0.9 10^3/uL (0.0-0.8); MONO % 6.9 % (0.0-5.0); NEUTROPHILS # 10.8 10^3/uL (1.8-7.7); NEUTROPHILS % 81.4 % (36.0-66.0); PLATELET COUNT, AUTOMATED 269 10^3/uL (150-450); WHITE BLOOD COUNT 13.2 10^3/uL (4.0-10.0)
[2018-04-03 07:45] LABS: INR 1.15; PROTHROMBIN TIME 14.9 SECONDS (12.1-14.4)
[2018-04-03 08:08] LABS: BLOOD UREA NITROGEN 17 MG/DL (7-18); CALCIUM LEVEL 8.5 MG/DL (8.8-10.2); CARBON DIOXIDE LEVEL 33 MEQ/L (21-32); CHLORIDE LEVEL 99 MEQ/L (98-107); CK-MB VALUE MASS < 1.0 NG/ML (<3.6); CPK CREATINE PHOSPHOKINASE 85 U/L (39-308); CREATININE FOR GFR 0.87 MG/DL (0.70-1.30); GLOMERULAR FILTRATION RATE > 60.0 (>42); GLUCOSE, FASTING 104 MG/DL (70-100); MB/CK RELATIVE INDEX 1.18 (< OR =4); NT-PRO BNP 320 PG/ML (<125); POTASSIUM SERUM 3.7 MEQ/L (3.5-5.1); SODIUM LEVEL 138 MEQ/L (136-145); TROPONIN I < 0.02 NG/ML (< 0.10)
--- NOTE | 2018-04-03 08:55 | REP ---
CHEST PA AND LATERAL: 04/03/2018. Comparison: AP portable chest 02/03/2018, 12/17/2017, CT angio 04/28/2015. Clinical history: Dyspnea and cough. Findings: Lungs are hyperinflated. There is flattening of the diaphragms with underlying COPD and fibrosis with emphysematous changes. There is pulmonary artery hypertension. Blunting of the CP angles, mild but chronic. There is apical pleural thickening and scar on the right. Some heavier fibrotic or infiltrative changes in the right upper lung zone unchanged from January. There is slight increased density in the left perihilar region. Superimposed atelectasis or infiltrate not excluded. Juliet mildly prominent suggesting pulmonary artery hypertension. The aorta is normal for age, mildly tortuous. Bony thorax shows no acute compression deformity. Impression: 1. COPD with diffuse interstitial fibrotic changes heavier in the bases and towards the right upper lobe peripherally but stable. There is some subtle increased density in the left perihilar region compared to the January study. This could be superimposed patchy atelectasis or infiltrate. Chronic blunting of CP angles suggesting scar. This is stable. Pulmonary hypertension also stable. Electronically Signed by Ector Terry MD 04/03/2018 09:12 P
[2018-04-03] MEDS ORDERED: PIPERACILLIN/TAZOBACTAM SOD 3.375 GM in D5W MINI-BAG PLUS 50 ML IV ONE (09:00)
[2018-04-03] MEDS ORDERED: PRED10TA2 PO (09:40)
[2018-04-03] MEDS ORDERED: INCR1INH INH (09:40)
[2018-04-03] MEDS ORDERED: [UNRECOGNIZED DRUG - CODE] PO (09:40)
[2018-04-03] MEDS ORDERED: ALKACAP2 PO (09:40)
[2018-04-03] MEDS ORDERED: ALBUTEROL SULFATE 2.5 MG/0.5 ML INH NEB SOLN INH PRN (10:45)
[2018-04-03] MEDS ORDERED: guaiFENesin ER 600 MG TAB PO PRN (10:45)
[2018-04-03] MEDS ORDERED: ONDANSETRON 4MG/2ML VIAL (J2405) IV PRN (10:45)
[2018-04-03] MEDS: OMEPRAZOLE 20 MG CAP PO SCH (11:53)
[2018-04-03] MEDS: FUROSEMIDE 20 MG TAB PO SCH (11:53)
[2018-04-03] MEDS: ENOXAPARIN 40 MG/0.4 ML SYRINGE (J1650) SC SCH (11:54)
[2018-04-03] MEDS: IPRATROPIUM 0.5MG/ALBUTEROL 2.5MG INH SOL UD 3ML (DUONEB)(J7620) NEB SCH ×3 (13:27→20:00)
[2018-04-03 14:30] VITALS: BP 124/79
[2018-04-03] MEDS: ACETAMINOPHEN TAB 650MG DOSE (2X325MG) PO PRN ×2 (14:51→20:15)
--- NOTE | 2018-04-03 14:52 | HPEPDOC ---
[facility] Medical History & Physical Date of Admission Apr 03, 2018 History and Physical PRIMARY CARE PROVIDER: Loi Warren ATTENDING: Luca Bill MD CHIEF COMPLAINT: SOB/Cough HISTORY OF PRESENT ILLNESS: This is a 72-year-old male past medical history of COPD, significant tobacco abuse, chronic hypoxic respiratory failure on 3-4 L home O2, hypertension presents with shortness of breath and cough. Patient states he developed a cough 3-4 days ago, with occasional green sputum however nonproductive for the most part. States he spiked a fever 102 this morning. Patient was also short of breath. Presented to the ED with an acute COPD exacerbation, tachycardic, short of breath, received nebs, steroids, started on Zosyn for chest x-ray notable infiltrate. Denies any chest pain or palpitations. Currently feeling much improved since p resenting to the ED. Resting comfortably in bed. Patient denies any lower extremity swelling. No syncopal episodes. PAST MEDICAL HISTORY: As per HPI PAST SURGICAL HISTORY: None SOCIAL HISTORY: H/o tobacco abuse 1ppd tobacco abuse since age of 16--> 62; quit 10 years ago. No alcohol or illicit drug use. FAMILY HISTORY: Noncontributory ALLERGIES: Please see below. REVIEW OF SYSTEMS: HEENT: Denies sore throat/headache CARDIOVASCULAR: Denies chest pain/palpitations RESPIRATORY: + shortness of breath/cough GASTROINTESTINAL: denies nausea/vomiting GENITOURINARY: Denies dysuria/urinary urgency. MUSCULOSKELETAL: Denies myalgias/arthralgias NEUROLOGICAL: Denies any focal weakness HOME MEDICATIONS: Please see below. PHYSICAL EXAMINATION: Vitals: (see below) General: No acute distress, laying comfortably in bed. HEENT: Moist mucous membranes. Neck: No JVD or lymphadenopathy Cardiac: RRR, No murmurs Pulm: Diminished breath sounds at the bases. +rhonchi. Prolonged exp phase. No use of accessory muscles. Abd: NT/ND + BS Ext: No edema or cyanosis IMAGING: CXR 04/03/18 Impression: 1. COPD with diffuse interstitial fibrotic changes heavier in the bases and towards the right upper lobe peripherally but stable. There is some subtle increased density in the left perihilar region compared to the January study. This could be superimposed patchy atelectasis or infiltrate. Chronic blunting of CP angles suggesting scar. This is stable. Pulmonary hypertension also stable. ASSESSMENT/PLAN: 1. Acute COPD exacerbation likely secondary to underlying bacterial pneumonia. Recently hospitalized in January. Will be treated for HCAP. On Zosyn. MRSA screen. Improving. Continue steroids, nebs. Mucinex. 2. History of chronic hypoxic respiratory failure on 3-4 L home O2 3. History of hypertension controlled. 4. History of shingles with chronic neuropathic pain - continue gabapentin DVT Prophy: Enoxaparin Overall prognosis guarded. Vital Signs Vital Signs Date Time Temp Pulse Resp B/P (MAP) Pulse Ox O2 Delivery O2 Flow Rate FiO2 04/03/18 14:18 99.0 101 22 121/57 (78) 98 Nasal Cannula 4.0 Laboratory Data Labs 24H Laboratory Tests 2 04/03/18 07:15: Lactic Acid Level 1.0 04/03/18 07:16: Anion Gap 6L, Glomerular Filtration Rate > 60.0, Blood Urea Nitrogen 17, Creatinine 0.87, Sodium Level 138, Potassium Level 3.7, Chloride Level 99, Carbon Dioxide Level 33H, Calcium Level 8.5L, Total Creatine Kinase 85, Creatine Kinase MB < 1.0, Creatine Kinase MB Relative Index 1.18, Troponin I < 0.02, KT-Mzz-V-Type Natriuretic Peptide 320H, Thyroid Stimulating Hormone (TSH) 0.990 04/03/18 07:17: Immature Granulocyte % (Auto) 0.5, White Blood Count 13.2H, Red Blood Count 3.80L, Hemoglobin 12.1L, Hematocrit 37.7L, Mean Corpuscular Volume 99.2H, Mean Corpuscular Hemoglobin 31.8, Mean Corpuscular Hemoglobin Concent 32.1, Red Cell Distribution Width 13.8, Platelet Count 269, Neutrophils (%) (Auto) 81.4H, Lymphocytes (%) (Auto) 10.5L, Monocytes (%) (Auto) 6.9H, Eosinophils (%) (Auto) 0.5, Basophils (%) (Auto) 0.2, Neutrophils # (Auto) 10.8H, Lymphocytes # (Auto) 1.4L, Monocytes # (Auto) 0.9H, Eosinophils # (Auto) 0.1, Basophils # (Auto) 0.0, Nucleated Red Blood Cells % (auto) 0.0, Prothrombin Time 14.9H, Prothromb Time International Ratio 1.15 04/03/18 10:51: Urine Color YELLOW, Urine Appearance CLEAR, Urine pH 6.0, Urine Specific [place] 1.011, Urine Protein NEGATIVE, Urine Glucose (UA) NEGATIVE, Urine Ketones NEGATIVE, Urine Blood NEGATIVE, Urine Nitrite NEGATIVE, Urine Bilirubin NEGATIVE, Urine Urobilinogen 0.2, Urine Leukocyte Esterase NEGATIVE, Urine WBC (Auto) 0, Urine RBC (Auto) 1, Urine Hyaline Casts (Auto) 0, Urine Bacteria (Auto) NEGATIVE, Urine Squamous Epithelial Cells 0, Urine Mucus (Auto) SMALL, Urine Sperm (Auto) CBC/BMP Laboratory Tests 04/03/18 07:16 Calcium Level 8.5 L, Total Creatine Kinase 85 04/03/18 07:17 Red Blood Count 3.80 L, Mean Corpuscular Volume 99.2 H, Mean Corpuscular Hemoglobin 31.8, Mean Corpuscular Hemoglobin Concent 32.1, Red Cell Distribution Width 13.8, Neutrophils (%) (Auto) 81.4 H, Lymphocytes (%) (Auto) 10.5 L, Monocytes (%) (Auto) 6.9 H, Eosinophils (%) (Auto) 0.5, Basophils (%) (Auto) 0.2, Neutrophils # (Auto) 10.8 H, Lymphocytes # (Auto) 1.4 L, Monocytes # (Auto) 0.9 H, Eosinophils # (Auto) 0.1, Basophils # (Auto) 0.0 Microbiology Microbiology 04/03/18 Blood Culture, Received Pending 04/03/18 Blood Culture, Received Pending 04/03/18 Respiratory Virus Panel (PCR) ([facility]ARILYS) - Final, Complete Home Medications Scheduled (Incruse Ellipta) 62.5 Mcg/Inh Inh, 1 PUFF INH DAILY (Vanquish 227-194-33 mg) 1 Tab Tab, 2 TAB PO QHS Albuterol/Ipratropium (Ipratropium [place]/Albut 0.5-2.5 (3) mg/3Ml) 1 Letty Letty, 1 LETTY INH TID Alprazolam (Alprazolam) 0.25 Mg Tab, 0.5 MG PO QHS Budesonide/Formoterol (Symbicort 160-4.5 Mcg/Act) 60 Puff/Inhaler Aers, 2 PUFF INH BID Cholecalciferol (Vitamin D) 1,000 Unit Tab, 5,000 UNIT PO DAILY Furosemide (Furosemide) 20 Mg Tab, 20 MG PO DAILY Gabapentin (Gabapentin) 300 Mg Cap, 600 MG PO QHS Gabapentin (Neurontin) 300 Mg Cap, 300 MG PO QAM Lisinopril (Lisinopril) 10 Mg Tab, 10 MG PO DAILY Omeprazole (Omeprazole) 40 Mg Cap, 40 MG PO DAILY Prednisone (Prednisone) 10 Mg Tab, 10 MG PO DAILY Scheduled PRN (Maria Luisa-[place] Plus Cold & 5-2-10-325 mg) 1 Cap Cap, 1 CAP PO DAILY PRN for COLD SYMPTOMS Guaifenesin (Mucinex) 600 Mg Tab, 600 MG PO Q12H PRN for CONGESTION Allergies Coded Allergies: Cephalexin (Unverified Allergy, Severe, SOB "OUT OF IT", 12/17/17) Levofloxacin (Unverified Allergy, Severe, SOB "OUT OF IT", 12/17/17) Moxifloxacin (Unverified Allergy, Severe, SOB"OUT OF IT", 12/17/17) LUCA BILL MD Apr 03, 2018 14:52
[2018-04-03 16:00] VITALS: BP 129/70
[2018-04-03] MEDS: PIPERACILLIN/TAZOBACTAM SOD 3.375 GM in D5W MINI-BAG PLUS 50 ML IV SCH ×2 (16:33→23:30)
[2018-04-03] MEDS ORDERED: SLF 3 ML SYR IV PRN (17:45)
[2018-04-03 20:00] VITALS: BP 143/79
[2018-04-03] MEDS: GABAPENTIN 300 MG CAP PO SCH (20:14)
[2018-04-03] MEDS: ALPRAZolam 0.5 MG TAB PO SCH (20:15)
[2018-04-03] MEDS: SLF 3 ML SYR IV SCH (21:00)
[2018-04-03] MEDS: SYMBICORT 160/4.5MCG INHALER 6GM INH SCH (21:05)
[2018-04-04] VITALS (7 sets, daily range): BP systolic 104–139; BP diastolic 65–79
[2018-04-04] MEDS: IPRATROPIUM 0.5MG/ALBUTEROL 2.5MG INH SOL UD 3ML (DUONEB)(J7620) NEB SCH ×7 (00:01→23:45)
[2018-04-04] MEDS: PIPERACILLIN/TAZOBACTAM SOD 3.375 GM in D5W MINI-BAG PLUS 50 ML IV SCH ×4 (05:30→23:30)
[2018-04-04 05:32] LABS: BASO # 0.1 10^3/uL (0.0-0.2); BASO % 0.4 % (0.0-1.0); EOS # 0.2 10^3/uL (0.0-0.50); EOS % 2.2 % (0.0-3.0); HEMATOCRIT 36.4 % (42.0-52.0); HEMOGLOBIN 11.6 g/dl (13.5-17.5); LYMPH # 1.6 10^3/uL (1.5-4.5); MEAN CORPUSCULAR HEMOGLOBIN 31.7 pg (27.0-33.0); MEAN CORPUSCULAR HGB CONC 31.9 g/dl (32.0-36.5); MEAN CORPUSCULAR VOLUME 99.5 fl (80.0-96.0); MONO # 0.9 10^3/uL (0.0-0.8); MONO % 8.3 % (0.0-5.0); NEUTROPHILS # 8.3 10^3/uL (1.8-7.7); NEUTROPHILS % 74.4 % (36.0-66.0); PLATELET COUNT, AUTOMATED 259 10^3/uL (150-450); RED BLOOD COUNT 3.66 10^6/uL (4.30-6.10); WHITE BLOOD COUNT 11.2 10^3/uL (4.0-10.0)
[2018-04-04] MEDS: SLF 3 ML SYR IV SCH ×3 (06:00→22:00)
[2018-04-04 06:04] LABS: ALBUMIN 2.5 GM/DL (3.2-5.2); ALT/SGPT 11 U/L (12-78); BILIRUBIN,TOTAL 0.9 MG/DL (0.2-1.0); BLOOD UREA NITROGEN 17 MG/DL (7-18); CALCIUM LEVEL 8.4 MG/DL (8.8-10.2); CARBON DIOXIDE LEVEL 37 MEQ/L (21-32); CHLORIDE LEVEL 97 MEQ/L (98-107); CREATININE FOR GFR 1.03 MG/DL (0.70-1.30); GLOMERULAR FILTRATION RATE > 60.0 (>42); GLUCOSE, FASTING 110 MG/DL (70-100); POTASSIUM SERUM 4.2 MEQ/L (3.5-5.1); SODIUM LEVEL 137 MEQ/L (136-145); TOTAL PROTEIN 6.7 GM/DL (6.4-8.2)
[2018-04-04] MEDS: SYMBICORT 160/4.5MCG INHALER 6GM INH SCH ×2 (07:12→20:43)
--- NOTE | 2018-04-04 07:45 | ECGEPIP ---
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
[2018-04-04] MEDS: ENOXAPARIN 40 MG/0.4 ML SYRINGE (J1650) SC SCH (08:08)
[2018-04-04] MEDS: ACETAMINOPHEN TAB 650MG DOSE (2X325MG) PO PRN (08:14)
[2018-04-04] MEDS: GABAPENTIN 300 MG CAP PO SCH ×2 (08:15→20:17)
[2018-04-04] MEDS: FUROSEMIDE 20 MG TAB PO SCH (08:15)
[2018-04-04] MEDS: OMEPRAZOLE 20 MG CAP PO SCH (08:15)
[2018-04-04] MEDS: VITAMIN D 1,000 INTERNATIONAL UNITS TABLET PO SCH (08:15)
[2018-04-04] MEDS: predniSONE 20 MG TAB PO SCH (09:03)
--- NOTE | 2018-04-04 14:11 | IPNPDOC ---
Text Note Date of Service The patient was seen on 04/04/18. NOTE Subjective: Dyspnea improving. Denies CP/Palpitations. No N/V. PHYSICAL EXAMINATION: Vitals: (see below) General: No acute distress, laying comfortably in bed. HEENT: Moist mucous membranes. Neck: No JVD or lymphadenopathy Cardiac: RRR, No murmurs Pulm: Diminished breath sounds at the bases. No rhonchi. Prolonged exp phase. No use of accessory muscles. Improving. Abd: NT/ND + BS Ext: No edema or cyanosis IMAGING: CXR 04/03/18 Impression: 1. COPD with diffuse interstitial fibrotic changes heavier in the bases and towards the right upper lobe peripherally but stable. There is some subtle increased density in the left perihilar region compared to the January study. This could be superimposed patchy atelectasis or infiltrate. Chronic blunting of CP angles suggesting scar. This is stable. Pulmonary hypertension also stable. ASSESSMENT/PLAN: 1. Acute COPD exacerbation likely secondary to underlying bacterial pneumonia. Recently hospitalized in January. Will be treated for HCAP. On Zosyn. MRSA screen. Improving. Continue steroids, nebs. Mucinex. 2. History of chronic hypoxic respiratory failure on 3-4 L home O2 3. History of hypertension controlled. 4. History of shingles with chronic neuropathic pain - continue gabapentin DVT Prophy: Enoxaparin Overall prognosis guarded. OOB and ambulate. VS,Fishbone, I+O VS, Fishbone, I+O Laboratory Tests 04/04/18 04:56 Red Blood Count 3.66 L, Mean Corpuscular Volume 99.5 H, Mean Corpuscular Hemoglobin 31.7, Mean Corpuscular Hemoglobin Concent 31.9 L, Red Cell Distribution Width 13.7, Neutrophils (%) (Auto) 74.4 H, Lymphocytes (%) (Auto) 14.0 L, Monocytes (%) (Auto) 8.3 H, Eosinophils (%) (Auto) 2.2, Basophils (%) (Auto) 0.4, Neutrophils # (Auto) 8.3 H, Lymphocytes # (Auto) 1.6, Monocytes # (Auto) 0.9 H, Eosinophils # (Auto) 0.2, Basophils # (Auto) 0.1, Calcium Level 8.4 L, Aspartate Amino Transf (AST/SGOT) 17, Alanine Aminotransferase (ALT/SGPT) 11 L, Alkaline Phosphatase 67, Total Bilirubin 0.9, Total Protein 6.7, Albumin 2.5 L Vital Signs Date Time Temp Pulse Resp B/P (MAP) Pulse Ox O2 Delivery O2 Flow Rate FiO2 04/04/18 12:00 97.6 68 22 104/65 (78) 99 3.0 04/03/18 14:18 Nasal Cannula I&O- Last 24 Hours up to 6 AM 04/04/18 05:59 Intake Total 410 ml Output Total 475 ml Balance -65 ml LUCA AQUINO MD Apr 04, 2018 14:11
[2018-04-04] MEDS ORDERED: DOCUSATE SODIUM 100 MG CAP PO ONE (15:00)
[2018-04-04] MEDS: MIRALAX *UNIT DOSE* 17GM PACKET PO SCH (17:00)
[2018-04-04] MEDS: DOCUSATE SODIUM 100 MG CAP PO SCH (20:17)
[2018-04-04] MEDS: ALPRAZolam 0.5 MG TAB PO SCH (20:18)
[2018-04-05] MEDS: IPRATROPIUM 0.5MG/ALBUTEROL 2.5MG INH SOL UD 3ML (DUONEB)(J7620) NEB SCH ×6 (04:29→23:33)
[2018-04-05 04:45] VITALS: BP 132/82
[2018-04-05] MEDS: PIPERACILLIN/TAZOBACTAM SOD 3.375 GM in D5W MINI-BAG PLUS 50 ML IV SCH ×2 (05:36→10:03)
[2018-04-05] MEDS: SLF 3 ML SYR IV SCH ×3 (05:38→20:22)
[2018-04-05 06:19] LABS: BASO % 0.3 % (0.0-1.0); EOS % 0.3 % (0.0-3.0); HEMATOCRIT 34.6 % (42.0-52.0); HEMOGLOBIN 10.9 g/dl (13.5-17.5); LYMPH # 0.8 10^3/uL (1.5-4.5); LYMPH % 12.9 % (24.0-44.0); MEAN CORPUSCULAR HEMOGLOBIN 31.2 pg (27.0-33.0); MEAN CORPUSCULAR HGB CONC 31.5 g/dl (32.0-36.5); MEAN CORPUSCULAR VOLUME 99.1 fl (80.0-96.0); MONO # 0.8 10^3/uL (0.0-0.8); MONO % 13.2 % (0.0-5.0); NEUTROPHILS # 4.2 10^3/uL (1.8-7.7); NEUTROPHILS % 72.8 % (36.0-66.0); PLATELET COUNT, AUTOMATED 273 10^3/uL (150-450); RED BLOOD COUNT 3.49 10^6/uL (4.30-6.10); WHITE BLOOD COUNT 5.8 10^3/uL (4.0-10.0)
[2018-04-05 06:55] LABS: ALBUMIN 2.3 GM/DL (3.2-5.2); ALT/SGPT 14 U/L (12-78); BILIRUBIN,TOTAL 0.3 MG/DL (0.2-1.0); BLOOD UREA NITROGEN 19 MG/DL (7-18); CALCIUM LEVEL 8.8 MG/DL (8.8-10.2); CARBON DIOXIDE LEVEL 36 MEQ/L (21-32); CHLORIDE LEVEL 99 MEQ/L (98-107); CREATININE FOR GFR 0.92 MG/DL (0.70-1.30); GLOMERULAR FILTRATION RATE > 60.0 (>42); GLUCOSE, FASTING 118 MG/DL (70-100); MAGNESIUM LEVEL 2.4 MG/DL (1.8-2.4); POTASSIUM SERUM 3.4 MEQ/L (3.5-5.1); SODIUM LEVEL 140 MEQ/L (136-145); TOTAL PROTEIN 6.6 GM/DL (6.4-8.2)
[2018-04-05] MEDS: SYMBICORT 160/4.5MCG INHALER 6GM INH SCH ×2 (07:46→20:01)
[2018-04-05 08:00] VITALS: BP 136/91
[2018-04-05] MEDS: VITAMIN D 1,000 INTERNATIONAL UNITS TABLET PO SCH (08:03)
[2018-04-05] MEDS: MIRALAX *UNIT DOSE* 17GM PACKET PO SCH (08:04)
[2018-04-05] MEDS: predniSONE 20 MG TAB PO SCH (08:04)
[2018-04-05] MEDS: DOCUSATE SODIUM 100 MG CAP PO SCH ×2 (08:04→20:21)
[2018-04-05] MEDS: GABAPENTIN 300 MG CAP PO SCH ×2 (08:04→20:21)
[2018-04-05] MEDS: OMEPRAZOLE 20 MG CAP PO SCH (08:04)
[2018-04-05] MEDS ORDERED: POTASSIUM CHLORIDE 10 MEQ SR TABLET PO ONE (08:45)
[2018-04-05] MEDS ORDERED: methylPREDNISolone INJ 40 MG/1 ML VIAL (J2920) IV ONE (10:00)
[2018-04-05 12:00] VITALS: BP 133/79
--- NOTE | 2018-04-05 14:45 | IPNPDOC ---
Text Note Date of Service The patient was seen on 04/05/18. NOTE Subjective: Dyspnea continues to improve. Still wheezing. No CP/palpitations PHYSICAL EXAMINATION: Vitals: (see below) General: No acute distress, laying comfortably in bed. HEENT: Moist mucous membranes. Neck: No JVD or lymphadenopathy Cardiac: RRR, No murmurs Pulm: Diminished breath sounds at the bases. No rhonchi. Prolonged exp phase. Exp wheezing No use of accessory muscles. Improving. Abd: NT/ND + BS Ext: No edema or cyanosis IMAGING: CXR 04/03/18 Impression: 1. COPD with diffuse interstitial fibrotic changes heavier in the bases and towards the right upper lobe peripherally but stable. There is some subtle increased density in the left perihilar region compared to the January study. This could be superimposed patchy atelectasis or infiltrate. Chronic blunting of CP angles suggesting scar. This is stable. Pulmonary hypertension also stable. ASSESSMENT/PLAN: 1. Acute COPD exacerbation likely secondary to underlying bacterial pneumonia. Recently hospitalized in January. Will be treated for HCAP. MRSA screen. Improving. Continue steroids, nebs. Mucinex. Extra dose of solumedrol today. On Zosyn--> Change to cefdinir and monitor for response while sputum cx pending. 2. History of chronic hypoxic respiratory failure on 3-4 L home O2 3. History of hypertension controlled. 4. History of shingles with chronic neuropathic pain - continue gabapentin DVT Prophy: Enoxaparin Overall prognosis guarded. OOB and ambulate. Plan to d/c in the next 24 hr if continues to improve. VS,Fishbone, I+O VS, Fishbone, I+O Laboratory Tests 04/05/18 05:31 Red Blood Count 3.49 L, Mean Corpuscular Volume 99.1 H, Mean Corpuscular Hemoglobin 31.2, Mean Corpuscular Hemoglobin Concent 31.5 L, Red Cell Distribution Width 13.5, Neutrophils (%) (Auto) 72.8 H, Lymphocytes (%) (Auto) 12.9 L, Monocytes (%) (Auto) 13.2 H, Eosinophils (%) (Auto) 0.3, Basophils (%) (Auto) 0.3, Neutrophils # (Auto) 4.2, Lymphocytes # (Auto) 0.8 L, Monocytes # (Auto) 0.8, Eosinophils # (Auto) 0.0, Basophils # (Auto) 0.0, Calcium Level 8.8, Aspartate Amino Transf (AST/SGOT) 14, Alanine Aminotransferase (ALT/SGPT) 14, Alkaline Phosphatase 76, Total Bilirubin 0.3 #, Total Protein 6.6, Albumin 2.3 L Vital Signs Date Time Temp Pulse Resp B/P (MAP) Pulse Ox O2 Delivery O2 Flow Rate FiO2 04/05/18 12:00 3.0 04/05/18 12:00 98.1 87 19 133/79 (97) 96 04/03/18 14:18 Nasal Cannula I&O- Last 24 Hours up to 6 AM 04/05/18 06:00 Intake Total 1870 ml Output Total 2350 ml Balance -480 ml LUCA AQUINO MD Apr 05, 2018 14:45
[2018-04-05 16:00] VITALS: BP 118/84
[2018-04-05 20:00] VITALS: BP 160/88
[2018-04-05] MEDS: CEFDINIR 300 MG CAP (OMNICEF) PO SCH (20:21)
[2018-04-05] MEDS: ALPRAZolam 0.5 MG TAB PO SCH (20:21)
[2018-04-05 23:59] VITALS: BP 141/86
[2018-04-06 04:00] VITALS: BP 142/82
[2018-04-06] MEDS: IPRATROPIUM 0.5MG/ALBUTEROL 2.5MG INH SOL UD 3ML (DUONEB)(J7620) NEB SCH ×3 (04:00→11:04)
[2018-04-06 05:11] LABS: BASO % 0.2 % (0.0-1.0); HEMATOCRIT 33.9 % (42.0-52.0); HEMOGLOBIN 10.7 g/dl (13.5-17.5); LYMPH # 0.5 10^3/uL (1.5-4.5); LYMPH % 9.3 % (24.0-44.0); MEAN CORPUSCULAR HEMOGLOBIN 31.6 pg (27.0-33.0); MEAN CORPUSCULAR HGB CONC 31.6 g/dl (32.0-36.5); MONO # 0.4 10^3/uL (0.0-0.8); MONO % 8.7 % (0.0-5.0); NEUTROPHILS # 4.1 10^3/uL (1.8-7.7); PLATELET COUNT, AUTOMATED 285 10^3/uL (150-450); RED BLOOD COUNT 3.39 10^6/uL (4.30-6.10); WHITE BLOOD COUNT 5.1 10^3/uL (4.0-10.0)
[2018-04-06 05:30] LABS: ALBUMIN 2.4 GM/DL (3.2-5.2); ALT/SGPT 14 U/L (12-78); BILIRUBIN,TOTAL 0.3 MG/DL (0.2-1.0); BLOOD UREA NITROGEN 17 MG/DL (7-18); CALCIUM LEVEL 8.9 MG/DL (8.8-10.2); CARBON DIOXIDE LEVEL 32 MEQ/L (21-32); CHLORIDE LEVEL 104 MEQ/L (98-107); GLOMERULAR FILTRATION RATE > 60.0 (>42); GLUCOSE, FASTING 113 MG/DL (70-100); MAGNESIUM LEVEL 2.2 MG/DL (1.8-2.4); POTASSIUM SERUM 4.1 MEQ/L (3.5-5.1); SODIUM LEVEL 143 MEQ/L (136-145); TOTAL PROTEIN 6.5 GM/DL (6.4-8.2)
[2018-04-06] MEDS: SLF 3 ML SYR IV SCH (05:39)
[2018-04-06] MEDS: SYMBICORT 160/4.5MCG INHALER 6GM INH SCH (07:28)
[2018-04-06 08:00] VITALS: BP 140/80
[2018-04-06] MEDS: MIRALAX *UNIT DOSE* 17GM PACKET PO SCH (09:00)
[2018-04-06] MEDS: OMEPRAZOLE 20 MG CAP PO SCH (09:51)
[2018-04-06] MEDS: DOCUSATE SODIUM 100 MG CAP PO SCH (09:51)
[2018-04-06] MEDS: VITAMIN D 1,000 INTERNATIONAL UNITS TABLET PO SCH (09:51)
[2018-04-06] MEDS: CEFDINIR 300 MG CAP (OMNICEF) PO SCH (09:51)
[2018-04-06] MEDS: predniSONE 20 MG TAB PO SCH (09:52)
[2018-04-06] MEDS: GABAPENTIN 300 MG CAP PO SCH (09:52)
[2018-04-06] MEDS ORDERED: PRED10TA2 PO (10:43)
[2018-04-06] MEDS ORDERED: CEFD300CAP PO (10:43)
--- NOTE | 2018-04-06 14:37 | DS.PDOC ---
Discharge Summary General Date of Admission Apr 03, 2018 at 10:39 Date of Discharge 04/06/18 Attending Physician: LUCA AQUINO MD Discharge Summary PROCEDURES PERFORMED DURING STAY: None. ADMITTING/DISCHARGE DIAGNOSES: 1. Acute COPD exacerbation 2. History of chronic hypoxic respiratory failure on 3 L home O2 secondary to pneumonia 3.. History of hypertension COMPLICATIONS/CHIEF COMPLAINT: Shortness of breath and cough HISTORY OF PRESENT ILLNESS/HOSPITAL COURSE: This is a 72-year-old male past medical history of COPD, significant tobacco abuse, chronic hypoxic respiratory failure on 3-4 L home O2, hypertension presents with shortness of breath and cough. Patient states he developed a cough 3-4 days ago, with occasional green sputum however nonproductive for the most part. States he spiked a fever 102 this morning. Patient was also short of breath. Presented to the ED with an acute COPD exacerbation, tachycardic, short of breath, received nebs, steroids, started on Zosyn for chest x-ray notable infiltrate. Denies any chest pain or palpitations. Currently feeling much improved since presenting to the ED. Resting comfortably in bed. Patient denies any lower extremity swelling. No syncopal episodes. Over the course of hospitalization, patient's was continued on IV antibiotics, and improved on Zosyn. Patient was then transitioned to cefdinir and tolerated it well. The patient's steroids have been titrated down as well. He is currently ambulating with no significant dyspnea. He has been cleared for discharge by physical therapy. Patient is now hemodynamically stable and will be discharged home with outpatient follow-up. He has been given paperwork to follow-up with pulmonology prior to coming to the hospital, and notes that they will be filling out the paperwork and following up with outpatient pulmonary. DISCHARGE MEDICATIONS: Please see below. ALLERGIES: Please see below. PHYSICAL EXAMINATION ON DISCHARGE: Vitals: (see below) General: No acute distress, laying comfortably in bed. HEENT: Moist mucous membranes. Neck: No JVD or lymphadenopathy Cardiac: RRR, No murmurs Pulm: Clear to auscultation bilaterally. No wheezing. No rhonchi. No use of accessory muscles. Abd: NT/ND + BS Ext: No edema or cyanosis LABORATORY DATA: Please see below. IMAGING: Fair ACTIVITY: As tolerated. DIET: Low-sodium diet. DISCHARGE PLAN/DISPOSITION: Home DISCHARGE INSTRUCTIONS: 1. Follow-up with PCP and pulmonary in 1 week. Return to the ED if symptoms w orsen. DISCHARGE CONDITION: Stable. TIME SPENT ON DISCHARGE: Greater than 30 minutes. Vital Signs/I&Os Vital Signs Date Time Temp Pulse Resp B/P (MAP) Pulse Ox O2 Delivery O2 Flow Rate FiO2 04/06/18 08:00 3.0 04/06/18 08:00 96.0 80 18 140/80 (100) 98 04/03/18 14:18 Nasal Cannula I&O- Last 24 Hours up to 6 AM 04/06/18 06:00 Intake Total 2210 ml Output Total 1300 ml Balance 910 ml Laboratory Data Labs 24H Laboratory Tests 2 04/06/18 04:18: Immature Granulocyte % (Auto) 0.8, White Blood Count 5.1, Red Blood Count 3.39L, Hemoglobin 10.7L, Hematocrit 33.9L, Mean Corpuscular Volume 100.0H, Mean Corpuscular Hemoglobin 31.6, Mean Corpuscular Hemoglobin Concent 31.6L, Red Cell Distribution Width 13.4, Platelet Count 285, Neutrophils (%) (Auto) 81.0H, Lymphocytes (%) (Auto) 9.3L, Monocytes (%) (Auto) 8.7H, Eosinophils (%) (Auto) 0.0, Basophils (%) (Auto) 0.2, Neutrophils # (Auto) 4.1, Lymphocytes # (Auto) 0.5L, Monocytes # (Auto) 0.4, Eosinophils # (Auto) 0.0, Basophils # (Auto) 0.0, Nucleated Red Blood Cells % (auto) 0.0, Anion Gap 7L, Glomerular Filtration Rate > 60.0, Blood Urea Nitrogen 17, Creatinine 0.70, Sodium Level 143, Potassium Level 4.1#, Chloride Level 104, Carbon Dioxide Level 32, Calcium Level 8.9, Aspartate Amino Transf (AST/SGOT) 14, Alanine Aminotransferase (ALT/SGPT) 14, Alkaline Phosphatase 69, Total Bilirubin 0.3, Total Protein 6.5, Albumin 2.4L, Magnesium Level 2.2, C-Reactive Protein, Quantitative 12.00H, Albumin/Globulin Ratio 0.59L CBC/BMP Laboratory Tests 04/06/18 04:18 Red Blood Count 3.39 L, Mean Corpuscular Volume 100.0 H, Mean Corpuscular Hemoglobin 31.6, Mean Corpuscular Hemoglobin Concent 31.6 L, Red Cell Distribution Width 13.4, Neutrophils (%) (Auto) 81.0 H, Lymphocytes (%) (Auto) 9.3 L, Monocytes (%) (Auto) 8.7 H, Eosinophils (%) (Auto) 0.0, Basophils (%) (Auto) 0.2, Neutrophils # (Auto) 4.1, Lymphocytes # (Auto) 0.5 L, Monocytes # (Auto) 0.4, Eosinophils # (Auto) 0.0, Basophils # (Auto) 0.0, Calcium Level 8.9, Aspartate Amino Transf (AST/SGOT) 14, Alanine Aminotransferase (ALT/SGPT) 14, Alkaline Phosphatase 69, Total Bilirubin 0.3, Total Protein 6.5, Albumin 2.4 L Microbiology Microbiology 04/03/18 Blood Culture - Preliminary, Resulted No Growth after 72 hours. All specime... 04/03/18 Blood Culture - Preliminary, Resulted No Growth after 72 hours. All specime... 04/04/18 Gram Stain - Final, Complete 04/04/18 Sputum Culture - Final, Complete Yeast Like Organism 04/03/18 MRSA Screen - Final, Complete 04/03/18 Respiratory Virus Panel (PCR) ([facility]) - Final, Complete Discharge Medications Scheduled (Incruse Ellipta) 62.5 Mcg/Inh Inh, 1 PUFF INH DAILY, (Reported) (Vanquish 227-194-33 mg) 1 Tab Tab, 2 TAB PO QHS, (Reported) Albuterol/Ipratropium (Ipratropium [place]/Albut 0.5-2.5 (3) mg/3Ml) 1 Letty Letty, 1 LETTY INH TID, (Reported) Alprazolam (Alprazolam) 0.25 Mg Tab, 0.5 MG PO QHS, (Reported) Budesonide/Formoterol (Symbicort 160-4.5 Mcg/Act) 60 Puff/Inhaler Aers, 2 PUFF INH BID, (Reported) Cefdinir (Cefdinir) 300 Mg Cap, 300 MG PO BID Cholecalciferol (Vitamin D) 1,000 Unit Tab, 5,000 UNIT PO DAILY, (Reported) Furosemide (Furosemide) 20 Mg Tab, 20 MG PO DAILY, (Reported) Gabapentin (Gabapentin) 300 Mg Cap, 600 MG PO QHS, (Reported) Gabapentin (Neurontin) 300 Mg Cap, 300 MG PO QAM, (Reported) Omeprazole (Omeprazole) 40 Mg Cap, 40 MG PO DAILY, (Reported) Prednisone (Prednisone) 10 Mg Tab, 10 MG PO DAILY, (Reported) Prednisone (Prednisone) 10 Mg Tab, 10 MG PO TAPER Take 3 tabs daily x 3 days, then 2 tabs daily x 3 days, then cont with r egular home dose of 10mg daily. Scheduled PRN (Maria Luisa-[place] Plus Cold & 5-2-10-325 mg) 1 Cap Cap, 1 CAP PO DAILY PRN for COLD SYMPTOMS, (Reported) Guaifenesin (Mucinex) 600 Mg Tab, 600 MG PO Q12H PRN for CONGESTION, (Reported) Allergies Coded Allergies: Cephalexin (Unverified Allergy, Severe, SOB "OUT OF IT", 12/17/17) Levofloxacin (Unverified Allergy, Severe, SOB "OUT OF IT", 12/17/17) Moxifloxacin (Unverified Allergy, Severe, SOB"OUT OF IT", 12/17/17) LUCA AQUINO MD Apr 06, 2018 14:37
== END 2018-04-06 12:18 | disposition home or self-care (01) | DRG 190 ==
LOC: M ED 06:50 → M ED INP 10:39 → M PCU 14:25
PROVIDERS: ADMIT Internal Medicine; ATTEND Internal Medicine
DX: J44.1 Chronic obstructive pulmonary disease with (acute) exacerbation (principal); J15.9 Unspecified bacterial pneumonia; J96.11 Chronic respiratory failure with hypoxia; B02.29 Other postherpetic nervous system involvement; I10 Essential (primary) hypertension; F17.200 Nicotine dependence, unspecified, uncomplicated; Z79.899 Other long term (current) drug therapy; Z88.8 Allergy status to other drugs, medicaments and biological substances

== ENCOUNTER → 2018-04-12 | Outpatient (REF) | payer MEDICARE ==
[~2018-04-12] MED LIST changes: +ALKACAP2 PO; +INCR1INH INH; +[UNRECOGNIZED DRUG - CODE] PO
== END ==
LOC: M LAB REF 16:37
PROVIDERS: ATTEND Physician Assistant
DX: J15.8 Pneumonia due to other specified bacteria (principal)

== ENCOUNTER 2018-05-21 23:17 | Inpatient (IN) | payer MEDICARE ==
[~2018-05-21] VITALS: Ht 172.7 cm; Wt 67.8 kg
[~2018-05-21 23:17] MED LIST changes: +PRED-351 PO; -PRED10TA PO
[2018-05-21 23:38] LABS: BASO % 0.3 % (0.0-1.0); EOS % 0.1 % (0.0-3.0); HEMATOCRIT 43.4 % (42.0-52.0); HEMOGLOBIN 13.8 g/dl (13.5-17.5); LYMPH # 1.5 10^3/uL (1.5-4.5); LYMPH % 9.5 % (24.0-44.0); MEAN CORPUSCULAR HEMOGLOBIN 31.3 pg (27.0-33.0); MEAN CORPUSCULAR HGB CONC 31.8 g/dl (32.0-36.5); MEAN CORPUSCULAR VOLUME 98.4 fl (80.0-96.0); MONO # 1.1 10^3/uL (0.0-0.8); MONO % 6.7 % (0.0-5.0); NEUTROPHILS # 12.9 10^3/uL (1.8-7.7); NEUTROPHILS % 82.6 % (36.0-66.0); PLATELET COUNT, AUTOMATED 266 10^3/uL (150-450); RED BLOOD COUNT 4.41 10^6/uL (4.30-6.10); WHITE BLOOD COUNT 15.6 10^3/uL (4.0-10.0)
[2018-05-21] MEDS ORDERED: NS 500 ML IV ONE (23:45)
[2018-05-21] MEDS ORDERED: ACETAMINOPHEN TAB 650MG DOSE (2X325MG) PO ONE (23:45)
[2018-05-21 23:55] LABS: INR 1.07
[2018-05-22 00:09] LABS: INFLUENZA A AMPLIFICATION NEGATIVE (NEGATIVE); INFLUENZA B AMPLIFICATION NEGATIVE (NEGATIVE)
[2018-05-22 00:12] LABS: BLOOD UREA NITROGEN 20 MG/DL (7-18); CALCIUM LEVEL 8.6 MG/DL (8.8-10.2); CARBON DIOXIDE LEVEL 34 MEQ/L (21-32); CHLORIDE LEVEL 97 MEQ/L (98-107); CPK CREATINE PHOSPHOKINASE 72 U/L (39-308); CREATININE FOR GFR 1.08 MG/DL (0.70-1.30); GLOMERULAR FILTRATION RATE > 60.0 (>42); GLUCOSE, FASTING 105 MG/DL (70-100); MB/CK RELATIVE INDEX 2.08 (< OR =4); NT-PRO BNP 358 PG/ML (<125); POTASSIUM SERUM 3.7 MEQ/L (3.5-5.1); SODIUM LEVEL 137 MEQ/L (136-145); TROPONIN I 0.03 NG/ML (< 0.10)
--- NOTE | 2018-05-22 01:18 | REPVR ---
EXAM: XR Chest, 2 Views EXAM DATE/TIME: 05/22/2018 12:02 AM CLINICAL HISTORY: 72 years old, male; Signs and symptoms; Cough and dyspnea; TECHNIQUE: Imaging protocol: XR of the chest, 2 views. COMPARISON: CR Chest, 2 view PA Lat 04/03/2018 8:[address] ANGIO CHEST 04/28/2015 9:18:13 AM FINDINGS: Lungs: The lungs are hyperinflated and there is decreased pulmonary vascularity in the upper lobes, which are findings compatible with emphysematous changes. There is scarring of the left upper lobe. There are reticular opacities in the left lung base, which are more prominent compared to the prior chest x-ray on 04/03/2018. Pleural space: Unremarkable. No pleural effusion or pneumothorax is identified. Heart/Mediastinum: Unremarkable. No cardiomegaly. Bones/joints: Unremarkable. IMPRESSION: Emphysematous changes in both lungs and reticular opacities in the left lung base, which may represent atelectasis and/or pneumonia. Electronically signed by: Carl Lanza On 05/22/2018 01:18:10 AM
[2018-05-22] MEDS ORDERED: PIPERACILLIN/TAZOBACTAM SOD 3.375 GM in D5W MINI-BAG PLUS 50 ML IV ONE (01:30)
[2018-05-22] MEDS ORDERED: VANCOMYCIN HCL 1,000 MG, VIAL MATE ADAPTER 1 EACH in D5W 250 ML IV ONE (01:30)
[2018-05-22] MEDS ORDERED: [UNRECOGNIZED DRUG - CODE] PO (01:53)
[2018-05-22] MEDS ORDERED: SYMB16INH INH (01:53)
[2018-05-22] MEDS ORDERED: ADVITAB PO (01:53)
[2018-05-22] MEDS ORDERED: D3 U5000 PO (01:53)
[2018-05-22] MEDS ORDERED: FURO20TA2 PO (01:53)
[2018-05-22] MEDS ORDERED: GABA-843 PO ×3 (01:53)
[2018-05-22] MEDS ORDERED: ALPR0.25 PO (01:53)
[2018-05-22] MEDS ORDERED: PRED10TA2 PO (01:57)
[2018-05-22] MEDS ORDERED: IPRA0.00 INH (01:57)
[2018-05-22] MEDS ORDERED: OMEP-221 PO (01:57)
[2018-05-22] MEDS ORDERED: TREL1AER INH (01:57)
[2018-05-22] MEDS ORDERED: LISI10TA4 PO (01:57)
[2018-05-22] MEDS ORDERED: MUCI600T31 PO (01:57)
[2018-05-22] MEDS ORDERED: VENTAER INH (01:57)
--- NOTE | 2018-05-22 04:03 | HPEPDOC ---
General Date of Admission 05/22/18 Attending Physician: CHETAN WILKINS MD Chief Complaint The patient is a 72-year-old male admitted with a reason for visit of SOB. Source: Patient, Old records History of Present Illness This is a 72 year old male with advanced COPD , emphysema, steroid dependent, with chronic hypoxic respiratory failure on 3 l oxygen, hypertension, diastolic dysfunction, h/o Shingles with Chronic Neuropathic pain, GERD, anxiety presented to the ED with sudden onset fever and chills which started on 05/21/18 at 4 pm. His tmax measured at home at 10 pm was 103.4. As per he was confused during the episode of fever . His fever was not going down so he was brought to the ED. in the ED his Flu swab was negative. CXR was suggestive of left basal reticulonodular infiltrates. He had a hospital admission in March for COPD exacerbation. He is being admitted for HCAP. Home Medications Scheduled Alprazolam (Alprazolam) 0.25 Mg Tablet, 0.5 MG PO QHS, (Reported) Budesonide/Formoterol (Symbicort 160-4.5 Mcg Inhaler) 6 Gm Hfa.aer.ad, 1 PUFF INH DAILY, (Reported) Cholecalciferol (Vitamin D3) (Vitamin D3) 5,000 Unit Capsule, 5,000 UNIT PO DAILY, (Reported) Fluticasone/Umeclidin/Vilanter (Trelegy Ellipta 100-62.5-25) 1 Each Blst.w.dev, 1 PUFF INH DAILY, (Reported) Furosemide (Furosemide) 20 Mg Tablet, 20 MG PO DAILY, (Reported) Gabapentin (Gabapentin) 300 Mg Capsule, 300 MG PO DAILY, (Reported) Gabapentin (Gabapentin) 300 Mg Capsule, 600 MG PO QHS, (Reported) Lisinopril (Lisinopril) 10 Mg Tablet, 10 MG PO DAILY, (Reported) Omeprazole (Omeprazole) 40 Mg Capsule.dr, 40 MG PO DAILY, (Reported) Prednisone (Prednisone) 10 Mg Tablet, 10 MG PO DAILY, (Reported) Scheduled PRN ASA/Acetaminophen/Mag/Alh/Caff (Vanquish Caplet) 1 Each Tablet, 2 TAB PO Q6H PRN for HEADACHE, (Reported) Albuterol Sulfate (Ventolin Hfa) 18 Gm Hfa.aer.ad, 2 PUFFS INH Q4H PRN for SHORTNESS OF BREATH, (Reported) Guaifenesin (Mucinex) 600 Mg Tab.er.12h, 600 MG PO BID PRN for CONGESTION, (Reported) Ibuprofen/Pseudoephedrine HCl (Advil Cold & Sinus Caplet) 1 Each Tablet, 1 TAB PO Q4H PRN for COUGH, (Reported) Ipratropium/Albuterol Sulfate (Iprat-Albut 0.5-3(2.5) mg/3 ml) 3 Ml Ampul.neb, 3 ML INH QID PRN for SHORTNESS OF BREATH, (Reported) Allergies Coded Allergies: cephalexin (Unverified Allergy, Severe, SOB "OUT OF IT", 05/21/18) levofloxacin (Unverified Allergy, Severe, SOB "OUT OF IT", 05/21/18) moxifloxacin (Unverified Allergy, Severe, SOB "OUT OF IT", 05/21/18) Past Medical History Medical History Chronic obstructive pulmonary disease (COPD), steroid dependent. Chronic hypoxic respiratory failure on 3 liters of oxygen at home. Hypertension. Chronic neuropathic pain. Gastroesophageal reflux disease (GERD). History of shingles in 2013 and the neuropathic pain is from that. Grade 1 diastolic dysfunction. Pulmonary hypertension with chronic right sided heart failure. Anxiety Surgical History none Family History Significant Family History: Noncontributory Social History * Smoker: former Smoker, quit greater than 1 year Alcohol: Denies Drugs: denies Recent Travel/Sick Contacts: Denies: Recent travel, Recent sick contacts Psychosocial History: No pertinent psych hx Review of Systems Constitutional: Reports: Chills, Fever Pulmonary: Reports: Dyspnea; Denies: Cough, Pleuritic Chest Pain Cardiovascular: Denies: Chest Pain, Palpitations, Edema, Lt Headedness Gastrointestinal: Denies: Nausea, Vomiting, Abdominal Pain, Diarrhea, Constipation Genitourinary: Denies: Dysuria, Frequency, Incontinence Physical Examination General Exam: Positive: Alert, Cooperative, No Acute Distress Eye Exam: Positive: PERRLA, Conjunctiva & lids normal, EOMI; Negative: Sclera icteric ENT Exam: Positive: Atraumatic, Mucous membr. moist/pink, Pharynx Normal Neck Exam: Positive: Supple Chest Exam: Positive: Rales (at left base), Diminished Heart Exam: Positive: Rate Normal, Regular Rhythm, Normal S1, Normal S2; Negative: Gallops, Murmurs, Rubs Telemetry: Positive: No significant arrhythmia Abdomen Exam: Positive: Normal bowel sounds, Soft; Negative: Tenderness, Hepatospenomegaly Extremity Exam: Negative: Clubbing, Cyanosis, Edema Psych Exam: Positive: Mood NL, Memory Intact, Oriented x 3 Vital Signs Vital Signs Date Time Temp Pulse Resp B/P (MAP) Pulse Ox O2 Delivery O2 Flow Rate FiO2 05/22/18 02:13 104 05/22/18 02:02 25 96 4.0 05/22/18 02:00 113/58 (76) 05/22/18 01:08 99.8 05/21/18 23:17 Nasal Cannula Laboratory Data Labs 24H Laboratory Tests 2 05/21/18 23:28: Immature Granulocyte % (Auto) 0.8, White Blood Count 15.6H, Red Blood Count 4.41, Hemoglobin 13.8, Hematocrit 43.4, Mean Corpuscular Volume 98.4H, Mean Corpuscular Hemoglobin 31.3, Mean Corpuscular Hemoglobin Concent 31.8L, Red Cell Distribution Width 14.2, Platelet Count 266, Neutrophils (%) (Auto) 82.6H, Lymphocytes (%) (Auto) 9.5L, Monocytes (%) (Auto) 6.7H, Eosinophils (%) (Auto) 0.1, Basophils (%) (Auto) 0.3, Neutrophils # (Auto) 12.9H, Lymphocytes # (Auto) 1.5, Monocytes # (Auto) 1.1H, Eosinophils # (Auto) 0.0, Basophils # (Auto) 0.0, Nucleated Red Blood Cells % (auto) 0.0, Prothrombin Time 14.0, Prothromb Time International Ratio 1.07, Anion Gap 6L, Glomerular Filtration Rate > 60.0, Lactic Acid Level 2.7*H, Blood Urea Nitrogen 20H, Creatinine 1.08, Sodium Level 137, Potassium Level 3.7, Chloride Level 97L, Carbon Dioxide Level 34H, Calcium Level 8.6L, Total Creatine Kinase 72, Creatine Kinase MB 2.0, Creatine Kinase MB Relative Index 2.08, Troponin I 0.03, MZ-Bbv-Z-Type Natriuretic Peptide 358H, Thyroid Stimulating Hormone (TSH) 2.700, Influenza Type A (RT-PCR) NEGATIVE, Influenza Type B (RT-PCR) NEGATIVE 05/22/18 01:04: Urine Color YELLOW, Urine Appearance CLEAR, Urine pH 5.0, Urine Specific [place] 1.016, Urine Protein NEGATIVE, Urine Glucose (UA) NEGATIVE, Urine Ketones NEGATIVE, Urine Blood NEGATIVE, Urine Nitrite NEGATIVE, Urine Bilirubin NEGATIVE, Urine Urobilinogen 0.2, Urine Leukocyte Esterase NEGATIVE, Urine WBC (Auto) 0, Urine RBC (Auto) 0, Urine Hyaline Casts (Auto) 0, Urine Bacteria (Auto) NEGATIVE, Urine Squamous Epithelial Cells 0, Urine Amorphous Sediment SMALLH, Urine Mucus (Auto) SMALL, Urine Sperm (Auto) CBC/BMP Laboratory Tests 05/21/18 23:28 Red Blood Count 4.41, Mean Corpuscular Volume 98.4 H, Mean Corpuscular Hemoglobin 31.3, Mean Corpuscular Hemoglobin Concent 31.8 L, Red Cell Distribution Width 14.2, Neutrophils (%) (Auto) 82.6 H, Lymphocytes (%) (Auto) 9.5 L, Monocytes (%) (Auto) 6.7 H, Eosinophils (%) (Auto) 0.1, Basophils (%) (Auto) 0.3, Neutrophils # (Auto) 12.9 H, Lymphocytes # (Auto) 1.5, Monocytes # (Auto) 1.1 H, Eosinophils # (Auto) 0.0, Basophils # (Auto) 0.0, Calcium Level 8.6 L, Total Creatine Kinase 72 Microbiology Microbiology 05/21/18 Blood Culture, Received Pending 05/21/18 Blood Culture, Received Pending Assessment/Plan This is a 72 year old male with advanced COPD , emphysema, steroid dependent, with chronic hypoxic respiratory failure on 3 l oxygen, hypertension, diastolic dysfunction, h/o Shingles with Chronic Neuropathic pain, GERD, anxiety presented to the ED with sudden onset fever and chills which started on 05/21/18 at 4 pm. His tmax measured at home at 10 pm was 103.4. As per he was confused during the episode of fever . His fever was not going down so he was brought to the ED. in the ED his Flu swab was negative. CXR was suggestive of left basal reticulonodular infiltrates. He had a hospital admission in March for COPD exacerbation. He is being admitted for HCAP. HCAP Vs viral resp tract infection will treat with Zosyn and Vanco. blood cultures ordered. will send the full resp panel to evaluate for other resp viral infection. will get a procalcitonin level . If that is negative then will deescalate antibiotics. COPD with chronic hypoxic respiratory failure now a little more hypoxic compared to baseline as requiring 5 liters of oxygen . Was desaturating to 86% WITH 3 LITERS on presentation. His COPD appears to be controlled at this point will continue symbicort, spiriva in place of Trelegy, duonebs and prednisone home dosage. Hypertension will hold lisinopril for now. Bp well controlled. GERD continue PPI Chronic diastolic CHF , Pulmonary hypertension with right heart failure chronic will hold lasix for now as pateint appears euvolemic Lactic cidosis due to hypoxia ? infection will repeat. H/O Shingles with chronic neuropathic pain continue gabapentin DVT prophylaxis ordered. Plan / VTE VTE Prophylaxis Ordered?: Yes CHETAN WILKINS MD May 22, 2018 02:34
[2018-05-22 04:10] VITALS: BP 154/88
[2018-05-22 04:49] LABS: BASO # 0.1 10^3/uL (0.0-0.2); BASO % 0.3 % (0.0-1.0); EOS % 0.2 % (0.0-3.0); HEMATOCRIT 39.7 % (42.0-52.0); HEMOGLOBIN 12.5 g/dl (13.5-17.5); LYMPH # 1.9 10^3/uL (1.5-4.5); LYMPH % 10.1 % (24.0-44.0); MEAN CORPUSCULAR HEMOGLOBIN 31.5 pg (27.0-33.0); MEAN CORPUSCULAR HGB CONC 31.5 g/dl (32.0-36.5); MONO # 1.2 10^3/uL (0.0-0.8); MONO % 6.6 % (0.0-5.0); NEUTROPHILS # 15.3 10^3/uL (1.8-7.7); NEUTROPHILS % 82.2 % (36.0-66.0); PLATELET COUNT, AUTOMATED 243 10^3/uL (150-450); RED BLOOD COUNT 3.97 10^6/uL (4.30-6.10); WHITE BLOOD COUNT 18.7 10^3/uL (4.0-10.0)
[2018-05-22 05:13] LABS: BLOOD UREA NITROGEN 18 MG/DL (7-18); CALCIUM LEVEL 8.1 MG/DL (8.8-10.2); CARBON DIOXIDE LEVEL 33 MEQ/L (21-32); CHLORIDE LEVEL 100 MEQ/L (98-107); CREATININE FOR GFR 1.07 MG/DL (0.70-1.30); GLOMERULAR FILTRATION RATE > 60.0 (>42); GLUCOSE, FASTING 96 MG/DL (70-100); POTASSIUM SERUM 3.4 MEQ/L (3.5-5.1); SODIUM LEVEL 138 MEQ/L (136-145)
[2018-05-22] MEDS ORDERED: POTASSIUM CHLORIDE 10 MEQ SR TABLET PO ONE ×2 (06:45→09:00)
[2018-05-22 08:00] VITALS: BP 152/86
[2018-05-22] MEDS: IPRATROPIUM 0.5MG/ALBUTEROL 2.5MG INH SOL UD 3ML (DUONEB)(J7620) NEB SCH ×3 (08:00→23:23)
[2018-05-22] MEDS ORDERED: SYMBICORT 80/4.5MCG INHALER 6GM INH SCH (08:00)
--- NOTE | 2018-05-22 08:31 | ECGEPIP ---
Stationary ECG Study [facility] - ED Test Date: 2018-05-22 Pat Name: RAEGAN BHAT Department: Room: [place] [address] Gender: M Client Services Coordinator: chuy : 1945 Requested By: JAROD Solano Order Number: [id number] Reading MD: Mary Crowder Measurements Intervals [place] Rate: 113 P: 54 MN: 120 QRS: 23 QRSD: 86 T: 26 QT: 308 QTc: 423 Interpretive Statements SINUS TACHYCARDIA WITH OCCASIONAL SUPRAVENTRICULAR PREMATURE COMPLEXES MODERATE ST DEPRESSION SLOWER COMPARED EARLIER SAME DAY Electronically Signed On 05-22-2018 8:31:39 EDT by Mary Crowder
[2018-05-22] MEDS: TIOTROPIUM INHALER/CAPSULE (SPIRIVA) INH SCH (08:48)
[2018-05-22] MEDS ORDERED: predniSONE 10 MG TAB PO SCH (09:00)
--- NOTE | 2018-05-22 09:01 | ECGEPIP ---
Stationary ECG Study [facility] - ED Test Date: 2018-05-21 Pat Name: RAEGAN BHAT Department: Room: [place] [address] Gender: M Box Toe Stitcher: yong : 1945 Requested By: JAROD Solano Order Number: [id number] Reading MD: Mary Crowder Measurements Intervals [place] Rate: 136 P: ME: 0 QRS: 39 QRSD: 85 T: 20 QT: 286 QTc: 431 Interpretive Statements SINUS TACHYCARDIA PACS BASELINE ARTIFACT LIMITS INTERPRETATION NONSPECIFIC ST & T-WAVE ABNORMALITY ABNORMAL RHYTHM ECG Electronically Signed On 05-22-2018 9:01:10 EDT by Mary Crowder
[2018-05-22] MEDS: ENOXAPARIN 40 MG/0.4 ML SYRINGE (J1650) SC SCH ×2 (09:11→09:14)
[2018-05-22] MEDS: GABAPENTIN 300 MG CAP PO SCH ×2 (09:12→21:24)
[2018-05-22] MEDS: ACETAMINOPHEN 500 MG TAB PO SCH ×2 (09:12→21:00)
[2018-05-22] MEDS: PIPERACILLIN/TAZOBACTAM SOD 3.375 GM in D5W MINI-BAG PLUS 50 ML IV SCH ×3 (09:12→21:24)
[2018-05-22] MEDS: VANCOMYCIN HCL 1,000 MG, VIAL MATE ADAPTER 1 EACH in D5W 250 ML IV SCH ×2 (10:47→22:54)
--- NOTE | 2018-05-22 13:57 | PHACANCOPD ---
PHARMACY VANCOMYCIN DOSING Pt Demographics Demographics Patient Age:72 , Weight:65.300 , Gender: male Adjusted Body Weight Date: 05/22/18, Adjusted Body Weight: [65.3] Kg Events Past 24 Hours Events Past 24 Hours: NO: Dialysis, Diuretic Therapy, Change in CrCl, Fever, Elevation in WBC, Pending Diagnostics, Pending Procedures, Other Vancomycin Vancomycin indication: HCAP Vancomycin Target Ranges: 15-20 mcg/ml Vancomycin Load Y/N: No Load Dose Date Time Vancomycin Load Dose: Date: Time: Vancomycin Dose Date: 05/22/18. Current Vancomycin Dose: [1G IV Q12H] Intermittent Dosing?: No Labs Labs Item Value Date Time White Blood Count 18.7 10^3/uL H 05/22/18 0442 Neutrophils # (Auto) 12.9 10^3/uL H 05/21/18 2328 Neutrophils # (Auto) 15.3 10^3/uL H 05/22/182 White Blood Count 15.6 10^3/uL H 05/21/188 Creatinine 1.07 MG/DL 05/22/182 Micro Microbiology 05/21/18 Blood Culture, Received Pending 05/21/18 Blood Culture, Received Pending 05/21/18 Respiratory Virus Panel (PCR) ([facility]) - Final, Complete Creatinine Clearance Date:05/22/18. Creatinine Clearance: [62ML/MIN]. Assessment and Plan Maintaining Current Dose?: Yes Reason for dose change: No Dose Change Pharmacist Note Pharmacist Note Date: 05/22/18. Pharmacist note:Pt is a 72 year old male being treated with vancomycin for HCAP goal trough 15-20mcg/ml. The pt has not been treated with vancomycin here at [facility] in the past. The patient received 1g vancomycin IV in the ER @02. To achieve goal maintenance therapy will consist of 1g vancomycin IV every 12 hours starting @10:00 05/22/18. We will continue to monitor and adjust the dose as needed. MAYDA OROZCO PHARMACY May 22, 2018 13:57
[2018-05-22 14:00] VITALS: BP 122/70
[2018-05-22] MEDS ORDERED: IPRATROPIUM 0.5MG/ALBUTEROL 2.5MG INH SOL UD 3ML (DUONEB)(J7620) NEB PRN (15:30)
[2018-05-22] MEDS: methylPREDNISolone INJ 125 MG/2 ML VIAL (J2930) IV SCH (16:32)
[2018-05-22] MEDS: ALPRAZolam 0.25 MG TAB PO SCH (21:24)
[2018-05-22 22:00] VITALS: BP 130/76
[2018-05-23] MEDS: methylPREDNISolone INJ 125 MG/2 ML VIAL (J2930) IV SCH ×3 (01:03→15:02)
[2018-05-23] MEDS: PIPERACILLIN/TAZOBACTAM SOD 3.375 GM in D5W MINI-BAG PLUS 50 ML IV SCH ×4 (01:04→20:20)
[2018-05-23 06:00] VITALS: BP 143/88
[2018-05-23 06:14] LABS: HEMATOCRIT 36.3 % (42.0-52.0); HEMOGLOBIN 11.5 g/dl (13.5-17.5); MEAN CORPUSCULAR HEMOGLOBIN 30.7 pg (27.0-33.0); MEAN CORPUSCULAR HGB CONC 31.7 g/dl (32.0-36.5); MEAN CORPUSCULAR VOLUME 96.8 fl (80.0-96.0); PLATELET COUNT, AUTOMATED 230 10^3/uL (150-450); RED BLOOD COUNT 3.75 10^6/uL (4.30-6.10); WHITE BLOOD COUNT 9.3 10^3/uL (4.0-10.0)
[2018-05-23 06:36] LABS: BLOOD UREA NITROGEN 16 MG/DL (7-18); CALCIUM LEVEL 8.9 MG/DL (8.8-10.2); CARBON DIOXIDE LEVEL 31 MEQ/L (21-32); CHLORIDE LEVEL 104 MEQ/L (98-107); GLOMERULAR FILTRATION RATE > 60.0 (>42); GLUCOSE, FASTING 151 MG/DL (70-100); POTASSIUM SERUM 4.3 MEQ/L (3.5-5.1); SODIUM LEVEL 140 MEQ/L (136-145)
[2018-05-23 06:50] LABS: LYMPHOCYTES 7 % (16-52); NEUTROPHILS 93 % (35-75); PLATELET ESTIMATE NORMAL (NORMAL)
[2018-05-23] MEDS: IPRATROPIUM 0.5MG/ALBUTEROL 2.5MG INH SOL UD 3ML (DUONEB)(J7620) NEB SCH ×3 (08:00→23:50)
[2018-05-23] MEDS: ENOXAPARIN 40 MG/0.4 ML SYRINGE (J1650) SC SCH (09:00)
[2018-05-23] MEDS: GABAPENTIN 300 MG CAP PO SCH ×2 (09:05→20:20)
[2018-05-23] MEDS: ACETAMINOPHEN 500 MG TAB PO SCH ×2 (09:05→20:20)
[2018-05-23] MEDS: TIOTROPIUM INHALER/CAPSULE (SPIRIVA) INH SCH (09:50)
[2018-05-23] MEDS: VANCOMYCIN HCL 1,000 MG, VIAL MATE ADAPTER 1 EACH in D5W 250 ML IV SCH ×2 (10:17→22:11)
[2018-05-23] MEDS ORDERED: VANCOMYCIN HCL 500 MG in D5W MINI-BAG PLUS 100 ML IV ONE (11:00)
[2018-05-23 12:00] VITALS: BP 130/77
--- NOTE | 2018-05-23 14:15 | IPNPDOC ---
Subjective Date Seen The patient was seen on 05/23/18. Subjective Chief Complaint/HPI Patient feels better, in no apparent distress General: Reports: Normal Appetite; Denies: Chills, Night Sweats, Fatigue, Malaise Constitutional: Denies: Chills, Fever, Night Sweats Eyes: Denies: Pain, Vision change ENT: Denies: Head Aches, Ear Pain, Dysphagia Skin: Denies: Rash, Lesions, Breakdown Pulmonary: Reports: Dyspnea; Denies: Cough Cardiovascular: Denies: Chest Pain, Palpitations, Orthopnea, Paroxysmal Noc. Dyspnea, Lt Headedness Gastrointestinal: Denies: Nausea, Vomiting, Abdominal Pain, Diarrhea, Constipation Genitourinary: Denies: Dysuria, Frequency, Incontinence, Retention Hematologic: Denies: Bruising, Bleeding Excessively Musculoskeletal: Denies: Neck Pain, Back Pain, Joint Pain, Muscle Pain, Spasms Neurological: Denies: Weakness, Numbness, Change in speech, Confusion Psych: Reports: Mood Normal; Denies: Depression, Memory Issues Objective Physical Examination General Exam: Positive: Alert, Cooperative, No Acute Distress Eye Exam: Positive: PERRLA, Conjunctiva & lids normal, EOMI; Negative: Sclera icteric ENT Exam: Positive: Atraumatic, Mucous membr. moist/pink, Pharynx Normal Neck Exam: Positive: Supple Chest Exam: Positive: Rales (at left base), Diminished Heart Exam: Positive: Rate Normal, Regular Rhythm, Normal S1, Normal S2; Negative: Gallops, Murmurs, Rubs Telemetry: Positive: No significant arrhythmia Abdomen Exam: Positive: Normal bowel sounds, Soft; Negative: Tenderness, Hepatospenomegaly Extremity Exam: Negative: Clubbing, Cyanosis, Edema Psych Exam: Positive: Mood NL, Memory Intact, Oriented x 3 Assessment /Plan Problems (1) HCAP (healthcare-associated pneumonia) Problem Text: Patient is already improving. WBC count is down to 9.3 and lactic acid is 1.4 Will continue Vanco and Zosyn Tylenol when necessary Pending pancultures Continue home meds (2) COPD with exacerbation Status: Acute Problem Text: Continue IV steroids Nebulizer treatment O2 support as needed Plan/VTE VTE Prophylaxis Ordered?: Yes VS, I&O, 24H, Fishbone Vital Signs/I&O Vital Signs Date Time Temp Pulse Resp B/P (MAP) Pulse Ox O2 Delivery O2 Flow Rate FiO2 05/23/18 10:13 2.0 05/23/18 06:00 96.6 82 17 143/88 (106) 97 05/21/18 23:17 Nasal Cannula I&O- Last 24 Hours up to 6 AM 05/23/18 06:00 Intake Total 2610 ml Output Total 2100 ml Balance 510 ml Laboratory Data 24H LABS Laboratory Tests 2 05/23/18 05:52: Nucleated Red Blood Cells % (auto) 0.0, Neutrophils 93H, Lymphocytes (Manual) 7L, Platelet Estimate NORMAL, Red Blood Cell Morphology NORMAL, Anion Gap 5L, Glomerular Filtration Rate > 60.0, Blood Urea Nitrogen 16, Creatinine 0.90, Sodium Level 140, Potassium Level 4.3#, Chloride Level 104, Carbon Dioxide Level 31, Calcium Level 8.9 05/23/18 08:51: Vancomycin Level Trough 13.4 CBC/BMP Laboratory Tests 05/23/18 05:52 Red Blood Count 3.75 L, Mean Corpuscular Volume 96.8 H, Mean Corpuscular Hemoglobin 30.7, Mean Corpuscular Hemoglobin Concent 31.7 L, Red Cell Distrib ution Width 13.9, Calcium Level 8.9 Microbiology Microbiology 05/21/18 Blood Culture - Preliminary, Resulted No growth after 24 hours . All specim... 05/21/18 Blood Culture - Preliminary, Resulted No growth after 24 hours . All specim... 05/22/18 MRSA Screen, Received Pending 05/21/18 Respiratory Virus Panel (PCR) ([facility]) - Final, Complete LOGAN PEREZ MD May 23, 2018 14:15
--- NOTE | 2018-05-23 16:10 | PHACANCOPD ---
PHARMACY VANCOMYCIN DOSING Pt Demographics Demographics Patient Age:72 , Weight:65.800 , Gender: male Adjusted Body Weight Date: 05/22/18, Adjusted Body Weight: [65.3] Kg Vancomycin Vancomycin indication: HCAP Vancomycin Target Ranges: 15-20 mcg/ml Vancomycin Load Y/N: No Load Dose Date Time Vancomycin Load Dose: Date: Time: Vancomycin Dose Date: 05/22/18. Current Vancomycin Dose: [1G IV Q12H] Intermittent Dosing?: No Labs Micro Microbiology 05/21/18 Blood Culture - Preliminary, Resulted No growth after 24 hours . All specim... 05/21/18 Blood Culture - Preliminary, Resulted No growth after 24 hours . All specim... 05/22/18 MRSA Screen, Received Pending 05/21/18 Respiratory Virus Panel (PCR) ([facility]) - Final, Complete Creatinine Clearance Date:05/22/18. Creatinine Clearance: [62ML/MIN]. Assessment and Plan Maintaining Current Dose?: Yes Reason for dose change: No Dose Change Pharmacist Note Pharmacist Note 05/23/18: Day #2 empiric IV vancomycin therapy. Vancomycin trough today resulted at 13.4mcg/ml. We have scheduled the patient to receive an additional 500mg this morning (total of 1500mg this AM), and will continue on his current regimen of 1g IV Q12H starting tonight. Scr remains stable at 0.9 today from 1.07 yesterday. We will continue to monitor and schedule further trough levels accordingly. Date: 05/22/18. Pharmacist note:Pt is a 72 year old male being treated with vancomycin for HCAP goal trough 15-20mcg/ml. The pt has not been treated with vancomycin here at [facility] in the past. The patient received 1g vancomycin IV in the ER @02. To achieve goal maintenance therapy will consist of 1g vancomycin IV every 12 hours starting @10:00 05/22/18. We will continue to monitor and adjust the dose as needed. JARETT MCKEON PHARMACY May 23, 2018 16:10
[2018-05-23] MEDS: ALPRAZolam 0.25 MG TAB PO SCH (20:20)
[2018-05-23 22:00] VITALS: BP 147/82
[2018-05-24] MEDS: methylPREDNISolone INJ 125 MG/2 ML VIAL (J2930) IV SCH ×2 (00:26→08:04)
[2018-05-24] MEDS: PIPERACILLIN/TAZOBACTAM SOD 3.375 GM in D5W MINI-BAG PLUS 50 ML IV SCH ×2 (01:54→08:04)
[2018-05-24 06:00] VITALS: BP 141/73
[2018-05-24 06:53] LABS: ALBUMIN 2.5 GM/DL (3.2-5.2); ALT/SGPT 15 U/L (12-78); BILIRUBIN,TOTAL 0.4 MG/DL (0.2-1.0); BLOOD UREA NITROGEN 22 MG/DL (7-18); CALCIUM LEVEL 8.8 MG/DL (8.8-10.2); CARBON DIOXIDE LEVEL 33 MEQ/L (21-32); CHLORIDE LEVEL 105 MEQ/L (98-107); CREATININE FOR GFR 0.87 MG/DL (0.70-1.30); GLOMERULAR FILTRATION RATE > 60.0 (>42); GLUCOSE, FASTING 149 MG/DL (70-100); POTASSIUM SERUM 4.1 MEQ/L (3.5-5.1); SODIUM LEVEL 142 MEQ/L (136-145); TOTAL PROTEIN 6.2 GM/DL (6.4-8.2)
[2018-05-24 07:21] LABS: HEMATOCRIT 34.8 % (42.0-52.0); HEMOGLOBIN 11.2 g/dl (13.5-17.5); LYMPH % 2.1 % (24.0-44.0); MEAN CORPUSCULAR HEMOGLOBIN 31.4 pg (27.0-33.0); MEAN CORPUSCULAR HGB CONC 32.2 g/dl (32.0-36.5); MEAN CORPUSCULAR VOLUME 97.5 fl (80.0-96.0); MONO # 0.3 10^3/uL (0.0-0.8); MONO % 2.8 % (0.0-5.0); NEUTROPHILS # 10.5 10^3/uL (1.8-7.7); NEUTROPHILS % 94.2 % (36.0-66.0); PLATELET COUNT, AUTOMATED 261 10^3/uL (150-450); RED BLOOD COUNT 3.57 10^6/uL (4.30-6.10); WHITE BLOOD COUNT 11.1 10^3/uL (4.0-10.0)
[2018-05-24 07:29] LABS: LYMPH # 0.2 10^3/uL (1.5-4.5)
[2018-05-24] MEDS: ENOXAPARIN 40 MG/0.4 ML SYRINGE (J1650) SC SCH (07:32)
[2018-05-24] MEDS: IPRATROPIUM 0.5MG/ALBUTEROL 2.5MG INH SOL UD 3ML (DUONEB)(J7620) NEB SCH (07:50)
[2018-05-24] MEDS: TIOTROPIUM INHALER/CAPSULE (SPIRIVA) INH SCH (07:50)
[2018-05-24] MEDS: ACETAMINOPHEN 500 MG TAB PO SCH (08:04)
[2018-05-24] MEDS: GABAPENTIN 300 MG CAP PO SCH (08:04)
--- NOTE | 2018-05-24 08:48 | REP ---
Portable chest, 08:26 a.m., to AP semi upright views: Comparisons are 05/21/2018, 04/03/2018 and 12/17/2017. The reticular densities in the left base identified on 05/21/2018 have resolved. There is chronic pleuroparenchymal scarring in the right upper lobe, unchanged from the prior studies. There is chronic mild interstitial coarsening compatible with chronic lung disease, unchanged from all prior studies. There are no pleural effusions. Cardiac size is normal. The roly, mediastinum, and skeletal structures are unremarkable. Impression: The reticular opacities identified in the left base and 05/21/2018 of resolved. Otherwise, there are chronic stable findings as described. Electronically Signed by Jamel Sequeira MD 05/24/2018 08:39 A
[2018-05-24] MEDS: VANCOMYCIN HCL 1,000 MG, VIAL MATE ADAPTER 1 EACH in D5W 250 ML IV SCH (10:08)
[2018-05-24] MEDS ORDERED: BACT800T5 PO (11:07)
--- NOTE | 2018-05-24 13:27 | DS.PDOC ---
Discharge Summary General Date of Admission May 22, 2018 at 02:55 Date of Discharge 05/24/2018 Primary Care Physician: NICHOLAS NAPIER DO Attending Physician: LOGAN PEREZ MD Discharge Summary PROCEDURES PERFORMED DURING STAY: [None]. ADMITTING DIAGNOSES: 1. . DISCHARGE DIAGNOSES: 1. . COMPLICATIONS/CHIEF COMPLAINT: Copd With Acute Bronchitis,Pneumonia. HISTORY OF PRESENT ILLNESS: [This is a 72 year old male with advanced COPD , emphysema, steroid dependent, with chronic hypoxic respiratory failure on 3 l oxygen, hypertension, diastolic dysfunction, h/o Shingles with Chronic Neuropathic pain, GERD, anxiety presented to the ED with sudden onset fever and chills which started on 05/21/18 at 4 pm. His tmax measured at home at 10 pm was 103.4. As per he was confused during the episode of fever . His fever was not going down so he was brought to the ED. in the ED his Flu swab was negative. CXR was suggestive of left basal reticulonodular infiltrates. He had a hospital admission in March for COPD exacerbation. He is being admitted for HCAP.]. HOSPITAL COURSE: [Patient was admitted with the exacerbation of COPD, possible pneumonia. Patient was started on Zosyn and he responded very well. His WBC count decreased to within normal limits. He remained afebrile during the stay and also was treated for exacerbation of COPD with nebulizer treatment and IV steroids Patient has remained afebrile and asymptomatic since yesterday. Wishes to go home and patient can be discharged home on all current medications and by mouth antibiotics and to follow with his primary care physician in one week]. DISCHARGE MEDICATIONS: Please see below. ALLERGIES: Please see below. PHYSICAL EXAMINATION ON DISCHARGE: VITAL SIGNS: Please see below. GENERAL: [Normal] HEENT:. PERRLA NECK:. No JVD CARDIOVASCULAR EXAMINATION:. S1, S2, regular RESPIRATORY EXAMINATION:, Clear to A&P ABDOMINAL EXAMINATION:. Benign EXTREMITIES: clubbing, cyanosis or edema SKIN: [Normal] NEUROLOGICAL EXAMINATION:. No focal motor or sensory deficit PSYCHIATRIC EXAMINATION:. Normal LABORATORY DATA: Please see below. IMAGING: [As above] PROGNOSIS: [GERD] ACTIVITY: [As tolerated]. DIET:, 2 g sodium DISCHARGE PLAN: [Follow-up with PCP in one week] DISPOSITION: 01 Home, Self-Care. DISCHARGE INSTRUCTIONS: 1. As above. ITEMS TO FOLLOWUP ON ON OUTPATIENT: 1.. Follow-up with PCP. DISCHARGE CONDITION: [Stable]. TIME SPENT ON DISCHARGE: Greater than 40 minutes. Vital Signs/I&Os Vital Signs Date Time Temp Pulse Resp B/P (MAP) Pulse Ox O2 Delivery O2 Flow Rate FiO2 05/24/18 10:28 2.0 05/24/18 06:00 97.3 87 20 141/73 (95) 94 05/21/18 23:17 Nasal Cannula I&O- Last 24 Hours up to 6 AM 05/24/18 06:00 Intake Total 2290 ml Output Total 2250 ml Balance 40 ml Laboratory Data Labs 24H Laboratory Tests 2 05/24/18 05:57: Immature Granulocyte % (Auto) 0.9, White Blood Count 11.1H, Red Blood Count 3.57L, Hemoglobin 11.2L, Hematocrit 34.8L, Mean Corpuscular Volume 97.5H, Mean Corpuscular Hemoglobin 31.4, Mean Corpuscular Hemoglobin Concent 32.2, Red Cell Distribution Width 14.2, Platelet Count 261, Neutrophils (%) (Auto) 94.2H, Lymphocytes (%) (Auto) 2.1L, Monocytes (%) (Auto) 2.8, Eosinophils (%) (Auto) 0.0, Basophils (%) (Auto) 0.0, Neutrophils # (Auto) 10.5H, Lymphocytes # (Auto) 0.2L, Monocytes # (Auto) 0.3, Eosinophils # (Auto) 0.0, Basophils # (Auto) 0.0, Nucleated Red Blood Cells % (auto) 0.0, Anion Gap 4L, Glomerular Filtration Rate > 60.0, Blood Urea Nitrogen 22H, Creatinine 0.87, Sodium Level 142, Potassium Level 4.1, Chloride Level 105, Carbon Dioxide Level 33H, Calcium Level 8.8, Aspartate Amino Transf (AST/SGOT) 11, Alanine Aminotransferase (ALT/SGPT) 15, Alkaline Phosphatase 63, Total Bilirubin 0.4, Total Protein 6.2L, Albumin 2.5L, Albumin/Globulin Ratio 0.68L CBC/BMP Laboratory Tests 05/24/18 05:57 Red Blood Count 3.57 L, Mean Corpuscular Volume 97.5 H, Mean Corpuscular Hemoglobin 31.4, Mean Corpuscular Hemoglobin Concent 32.2, Red Cell Distribution Width 14.2, Neutrophils (%) (Auto) 94.2 H, Lymphocytes (%) (Auto) 2.1 L, Monocytes (%) (Auto) 2.8, Eosinophils (%) (Auto) 0.0, Basophils (%) (Auto) 0.0, Neutrophils # (Auto) 10.5 H, Lymphocytes # (Auto) 0.2 L, Monocytes # (Auto) 0.3, Eosinophils # (Auto) 0.0, Basophils # (Auto) 0.0, Calcium Level 8.8, Aspartate Amino Transf (AST/SGOT) 11, Alanine Aminotransferase (ALT/SGPT) 15, Alkaline Phosphatase 63, Total Bilirubin 0.4, Total Protein 6.2 L, Albumin 2.5 L Microbiology Microbiology 05/21/18 Blood Culture - Preliminary, Resulted No Growth after 48 hours. All Specime... 05/21/18 Blood Culture - Preliminary, Resulted No Growth after 48 hours. All Specime... 05/22/18 MRSA Screen - Final, Complete 05/21/18 Respiratory Virus Panel (PCR) ([facility]) - Final, Complete Discharge Medications Scheduled Alprazolam (Alprazolam) 0.25 Mg Tablet, 0.5 MG PO QHS, (Reported) Cholecalciferol (Vitamin D3) (Vitamin D3) 5,000 Unit Capsule, 5,000 UNIT PO DAILY, (Reported) Fluticasone/Umeclidin/Vilanter (Trelegy Ellipta 100-62.5-25) 1 Each Blst.w.dev, 1 PUFF INH DAILY, (Reported) Furosemide (Furosemide) 20 Mg Tablet, 20 MG PO DAILY, (Reported) Gabapentin (Gabapentin) 300 Mg Capsule, 300 MG PO DAILY, (Reported) Gabapentin (Gabapentin) 300 Mg Capsule, 600 MG PO QHS, (Reported) Lisinopril (Lisinopril) 10 Mg Tablet, 10 MG PO DAILY, (Reported) Omeprazole (Omeprazole) 40 Mg Capsule.dr, 40 MG PO DAILY, (Reported) Prednisone (Prednisone) 10 Mg Tablet, 10 MG PO DAILY, (Reported) Sulfamethoxazole/Trimethoprim (Bactrim Ds Tablet) 1 Each Tablet, 1 TAB PO BID Scheduled PRN ASA/Acetaminophen/Mag/Alh/Caff (Vanquish Caplet) 1 Each Tablet, 2 TAB PO Q6H PRN for HEADACHE, (Reported) Albuterol Sulfate (Ventolin Hfa) 18 Gm Hfa.aer.ad, 2 PUFFS INH Q4H PRN for SHORTNESS OF BREATH, (Reported) Guaifenesin (Mucinex) 600 Mg Tab.er.12h, 600 MG PO BID PRN for CONGESTION, (Reported) Ibuprofen/Pseudoephedrine HCl (Advil Cold & Sinus Caplet) 1 Each Tablet, 1 TAB PO Q4H PRN for COUGH, (Reported) Ipratropium/Albuterol Sulfate (Iprat-Albut 0.5-3(2.5) mg/3 ml) 3 Ml Ampul.neb, 3 ML INH QID PRN for SHORTNESS OF BREATH, (Reported) Allergies Coded Allergies: cephalexin (Unverified Allergy, Severe, SOB "OUT OF IT", 05/21/18) levofloxacin (Unverified Allergy, Severe, SOB "OUT OF IT", 05/21/18) moxifloxacin (Unverified Allergy, Severe, SOB "OUT OF IT", 05/21/18) LOGAN PEREZ MD May 24, 2018 13:27
== END 2018-05-24 11:31 | disposition home or self-care (01) | DRG 194 ==
LOC: M ED 23:17 → M ED INP 05-22 02:55 → M MSPAV 05-22 04:10
PROVIDERS: ADMIT Internal Medicine Nephrology; ATTEND Internal Medicine
DX: J18.9 Pneumonia, unspecified organism (principal); J44.0 Chronic obstructive pulmonary disease with (acute) lower respiratory infection; E87.2 Acidosis; I50.32 Chronic diastolic (congestive) heart failure; J96.11 Chronic respiratory failure with hypoxia; I11.0 Hypertensive heart disease with heart failure; Z79.52 Long term (current) use of systemic steroids; K21.9 Gastro-esophageal reflux disease without esophagitis; F41.9 Anxiety disorder, unspecified; Z79.899 Other long term (current) drug therapy; Z88.8 Allergy status to other drugs, medicaments and biological substances; Z87.891 Personal history of nicotine dependence; I27.20 Pulmonary hypertension, unspecified; G62.9 Polyneuropathy, unspecified

== ENCOUNTER → 2018-06-28 | Outpatient (CLI) | payer MEDICARE ==
[~2018-06-28] MED LIST changes: +ADVITAB PO; +BACT800T5 PO; +D3 U5000 PO; +OMEP-221 PO; +TREL1AER INH
--- NOTE | 2018-06-28 12:32 | REP ---
Chest two views HISTORY: Shortness of breath Comparison: 05/24/2018 The lungs are hyperinflated. An increase in interstitial markings is present in the lungs consistent with chronic interstitial fibrosis. Linear densities are present in the right upper lobe consistent with scarring. The heart is normal in size. The pulmonary vasculature is normal in appearance. The bony structure is intact. IMPRESSION: Chronic interstitial fibrosis. Electronically Signed by Ilia Suarez MD 06/28/2018 12:23 P
== END ==
LOC: M WUC 09:50
PROVIDERS: ATTEND Physician Assistant
DX: J44.1 Chronic obstructive pulmonary disease with (acute) exacerbation (principal)

== ENCOUNTER → 2018-11-07 | Outpatient (CLI) | payer MEDICARE ==
[~2018-11-07] MED LIST changes: +ACET-897 PO; +ALOE237G TOP; -AZIT500T2 PO; +AZIT500T5 PO; +BACITAB PO; +D-50CAP PO; +FLUC10TA PO; +OMEP1CAP73 PO; -OMEP20CA3 PO; -OMEP40CA2 PO; +OMEP40CA97 PO
[2018-11-07 10:21] LABS: BASO # 0.1 10^3/uL (0.0-0.2); BASO % 0.8 % (0.0-1.0); EOS # 0.4 10^3/uL (0.0-0.5); EOS % 5.5 % (0.0-3.0); HEMATOCRIT 40.6 % (42.0-52.0); HEMOGLOBIN 12.6 g/dl (13.5-17.5); LYMPH # 1.5 10^3/uL (1.5-5.0); LYMPH % 22.9 % (24.0-44.0); MONO # 0.8 10^3/uL (0.0-0.8); MONO % 11.8 % (0.0-5.0); NEUTROPHILS # 3.7 10^3/uL (1.5-8.5); NEUTROPHILS % 57.9 % (36.0-66.0); PLATELET COUNT, AUTOMATED 280 10^3/uL (150-450); RED BLOOD COUNT 3.94 10^6/uL (4.30-6.10); WHITE BLOOD COUNT 6.3 10^3/uL (4.0-10.0)
[2018-11-07 10:53] LABS: CHOLESTEROL RISK RATIO 2.844 (<5)
[2018-11-09 00:06] LABS: PSA TOTAL 1.1 ng/mL (0.0-4.0)
== END ==
LOC: M WUC 08:27
PROVIDERS: ATTEND Physician Assistant
DX: Z00.00 Encounter for general adult medical examination without abnormal findings (principal); D64.9 Anemia, unspecified; Z13.220 Encounter for screening for lipoid disorders; Z12.5 Encounter for screening for malignant neoplasm of prostate

== ENCOUNTER 2019-01-21 22:08 | Inpatient (IN) | payer MEDICARE ==
[~2019-01-21] VITALS: Ht 170.2 cm; Wt 66.2 kg
[2019-01-21] MEDS: ENOXAPARIN 40 MG/0.4 ML SYRINGE (J1650) SC SCH (21:00)
[~2019-01-21 22:08] MED LIST changes: -ACET-897 PO; -ALOE237G TOP; -BACITAB PO; -D-50CAP PO; -FLUC10TA PO; +OMEP-172 PO; -OMEP1CAP73 PO
[2019-01-21] MEDS ORDERED: ACETAMINOPHEN 650 MG SUPP PR ONE (22:30)
[2019-01-21 22:52] LABS: BASO % 0.3 % (0.0-1.0); HEMATOCRIT 39.1 % (42.0-52.0); HEMOGLOBIN 12.2 g/dl (13.5-17.5); LYMPH % 3.9 % (24.0-44.0); MEAN CORPUSCULAR HEMOGLOBIN 31.7 pg (27.0-33.0); MEAN CORPUSCULAR HGB CONC 31.2 g/dl (32.0-36.5); MEAN CORPUSCULAR VOLUME 101.6 fl (80.0-96.0); MONO # 0.2 10^3/uL (0.0-0.8); MONO % 3.4 % (0.0-5.0); NEUTROPHILS # 5.7 10^3/uL (1.5-8.5); NEUTROPHILS % 92.2 % (36.0-66.0); PLATELET COUNT, AUTOMATED 260 10^3/uL (150-450); RED BLOOD COUNT 3.85 10^6/uL (4.30-6.10); WHITE BLOOD COUNT 6.2 10^3/uL (4.0-10.0)
[2019-01-21] MEDS ORDERED: NS 1,000 ML IV ONE (23:00)
[2019-01-21] MEDS ORDERED: PIPERACILLIN/TAZOBACTAM SOD 3.375 GM in D5W MINI-BAG PLUS 50 ML IV ONE (23:00)
[2019-01-21 23:06] LABS: LYMPH # 0.2 10^3/uL (1.5-5.0)
[2019-01-21 23:27] LABS: ALBUMIN 2.6 GM/DL (3.2-5.2); BILIRUBIN,DIRECT 0.2 MG/DL (0.0-0.2); BILIRUBIN,TOTAL 0.7 MG/DL (0.2-1.0); CK-MB VALUE MASS 1.4 NG/ML (<3.6); CREATININE FOR GFR 1.37 MG/DL (0.70-1.30); GLOMERULAR FILTRATION RATE 54.5 (>42); MB/CK RELATIVE INDEX 1.61 (< OR =4); POTASSIUM SERUM 4.6 MEQ/L (3.5-5.1); THYROID STIMULATING HORMONE 0.854 uIU/ML (0.358-3.740); TOTAL PROTEIN 6.3 GM/DL (6.4-8.2); TROPONIN I 0.06 NG/ML (< 0.10)
[2019-01-21] MEDS ORDERED: ACET-897 PO (23:40)
[2019-01-21] MEDS ORDERED: ALOE237G TOP (23:40)
[2019-01-21] MEDS ORDERED: PROAAER10 INH (23:40)
[2019-01-21] MEDS ORDERED: D-50CAP PO (23:40)
[2019-01-22] VITALS (20 sets, daily range): BP systolic 86–115; BP diastolic 55–68; O2SAT 94–96
[2019-01-22] MEDS ORDERED: methylPREDNISolone INJ 125 MG/2 ML VIAL (J2930) IV STA (00:46)
[2019-01-22] MEDS ORDERED: LR 1,000 ML IV ONE (01:00)
[2019-01-22] MEDS ORDERED: ACETAMINOPHEN TAB 650MG DOSE (2X325MG) PO PRN (01:00)
[2019-01-22] MEDS ORDERED: MOM 30ML SUSPENSION UDC PO PRN (01:00)
[2019-01-22] MEDS ORDERED: BENZONATATE 100 MG CAP PO PRN (01:00)
[2019-01-22] MEDS ORDERED: LEVALBUTEROL 1.25 MG/0.5 ML CONCENTRATE NEB NEB PRN (01:00)
[2019-01-22] MEDS ORDERED: MAALOX 30 ML SUSP *UDC PO PRN (01:00)
--- NOTE | 2019-01-22 01:08 | HPEPDOC ---
[facility] Medical History & Physical Date of Admission Jan 22, 2019 Date of Service: Jan 22, 2019 Primary Care Physician: NICHOLAS NAPIER DO Attending Physician: BARBRA BESS MD History and Physical TIME OF SERVICE: 1:10 AM CHIEF COMPLAINT: Shortness of breath. HISTORY OF PRESENT ILLNESS: This is a 73-year-old male who was brought to the ER by his family were evaluation of fever, shortness of breath, and confusion. Prior to this he was sick for 2 weeks; he went to clinic and received a 4-5 day course of antibiotics. Thereafter, his reports that she could still hear him "rattling". Today he had difficulties waking up, she thinks he may have had a fever and reports that her had difficulty answering questions, therefore, she called EMS. After EMS's arrival he vomited one time. Currently the patient is unable to answer why he is at the hospital, but he does admit to not feeling well. Per discussion with the ER nurse, he developed coarse rhonchi after receiving IV fluids. 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 Chronic diastolic congestive heart failure. Chronic neuropathic pain GERD Anxiety SOCIAL HISTORY: He is . History children. He used to smoke FAMILY HISTORY: Father had CVD Father had COPD Mother had peritonitis ALLERGIES: Please see below. HOME MEDICATIONS: Please see below. PHYSICAL EXAMINATION: VITAL SIGNS: Please see below. GEN: well nourished / well developed/ NAD INTEGUMENT: He doesn't appear pale/he does not have facial plethora/he is flushed HEENT: normocephalic / atraumatic / lips acyanotic/ he does have pursed lip breathing /NC in place / maximal laryngeal height is <4cm / mucus membranes slightly dry and pink / sclera anicteric CVS: RRR, but heart sounds are bit distant/ radial and dorsalis pedis pulses intact / no lower extremity edema LUNGS: He is able to speak full sentences without stopping to take a breath / he has a productive cough / using accessory muscles / there is decreased respiratory expansion/ he has coarse expiratory rhonchi ABDOMEN: bowel sounds are present / the abdomen is tympanic on percussion, soft & not tender with palpation MSK/EXTREMITIES: . There is no finger nail clubbing/ Capillary refill is greater than 3 seconds NEURO: CN 2-12 are grossly intact / speech is not dysarthric PSYCH: alert and oriented to person place a, but not time / able to understand and follow all commands LABORATORY DATA: See below. IMAGING: Chest x-ray shows right sided pneumonia, but the final read is pending MICROBIOLOGY: Please see below. ASSESSMENT: Mr. Kapoor is a 73-year-old male with a past COPD with chronic oxygen-dependent respiratory failure, pulmonary hypertension, cor pulmonale, chronic hypertension, HFpEF, GERD and anxiety who will be admitted primarily for management of sepsis secondary to pneumonia. PLAN: 1. Sepsis secondary to pneumonia SIRS criteria include Temp >101 / HR >90 / RR> 20 He also has AMS, non diabetic hyperglycemia, and a lactic acid of 2.9 NEW2S Score = 15 point = high risk Received 1 L of IV fluids in the ER Plan: admit to ICU /serial neuro checks/ telemetry / Sepsis protocol w repeat lactic acid /Zosyn plus doxycycline because of allergies to macrolides / switch to lactate ringers /f/u blood cx, respiratory panel and sputum Cx / Acetaminophen PRN for fever / target MAP 65 to 70 mmHG / f/u Is and Os with targ et UOP of atleast 0.5 ml/kg/H / target serum glucose 140-180 while acutely ill 2. Acute hypoxemic hypercarbic respiratory failure secondary to pneumonia He is dependent on 3L at baseline but is currently using 4 L. He also has coexisting chronic oxygen-dependent respiratory failure and cor pulmonale, pulmonary hypertension Chest x-ray personally visualized CURB 65 score to determine if pt should be admitted = 3 points = severe risk PORT/PSI Score to predict risk of mortality in pt w CAP = 131 points = class V risk = 27-29.2% mortality = high risk Shorr Score to identify pts at risk for MRSA PNA = low risk for MRSA Plan: continuous pulse ox & supplemental O2/ f/u repeat ABG in the morning / f/u sputum cx, respiratory panel, strep pneumo, Legionella& blood cx / abx / IVF / tessalon pearls / Acetaminophen PRN for fever 3. Acute COPD 2/2 PNA [place] chronic obstructive pulmonary disease risk scare (OCRS) guide to admission vs discharge in COPD exacerbation = 6 points = very high risk = appropriate for admission Plan: supplemental O2 via Vapotherm / continuous pulse oximetry / aspiration precautions / COPD diet / Dunebs Q6H, levalbuterol Q4HP, Prednisone + PPI/ abx / Tessalon Pearls / cold home inhalers / refer to [facility] Working Supervisor for repeat PFTs and Pulmonary Rehab when ready for d/c 4. Metabolic Encephalopathy 2/2 Sepsis He has been acting confused His GCS was 12 in the ER Suspect this will improve once the infection is treated 5. Acute renal failure May be due to: prerenal azotemia (dehydration in the setting of infection. Baseline Cr 0.87--> current Cr 1.37 Baseline BUN 22--> current creatinine 32 The UA is unremarkable Plan: Is/Os, daily weights / f/u ulytes for FENa or FEUrea,/IVF / /hold lisinopril / if his renal function doesn't improve the day time team may consider renal US 6. Partially decompensated Chronic diastolic congestive heart failure likely 2/2 Chronic hypertension. This was likely precipitated by IV fluids given as part of the sepsis protocol. Plan: Give 40 mg of IV Lasix now/follow-up in urine output/hold home doses of oral lisinopril 7. Chronic neuropathic pain Plan: Continue gabapentin 8. GERD Plan: PPI 9. Anxiety Plan: Hold alprazolam because of confusion related to pneumonia DVT prophylaxis with Lovenox. Disposition likely home after more than 2 midnight's stay Vital Signs Vital Signs Date Time Temp Pulse Resp B/P (MAP) Pulse Ox O2 Delivery O2 Flow Rate FiO2 01/22/19 00:00 100.9 108 24 98/54 (69) 95 Nasal Cannula 4.0 Laboratory Data Labs 24H Laboratory Tests 2 01/21/19 22:32: Immature Granulocyte % (Auto) 0.2, Neutrophils (%) (Auto) 92.2H, Lymphocytes (%) (Auto) 3.9L, Monocytes (%) (Auto) 3.4, Eosinophils (%) (Auto) 0.0, Basophils (%) (Auto) 0.3, Neutrophils # (Auto) 5.7, Lymphocytes # (Auto) 0.2L, Monocytes # (Auto) 0.2, Eosinophils # (Auto) 0.0, Basophils # (Auto) 0.0, Nucleated Red Blood Cells % (auto) 0.0, Urine Color YELLOW, Urine Appearance HAZY, Urine pH 5.0, Urine Specific [place] 1.019, Urine Protein NEGATIVE, Urine Glucose (UA) 1+H, Urine Ketones NEGATIVE, Urine Blood NEGATIVE, Urine Nitrite NEGATIVE, Urine Bilirubin NEGATIVE, Urine Urobilinogen 0.2, Urine Leukocyte Esterase NEGATIVE, Urine WBC (Auto) 1, Urine RBC (Auto) 1, Urine Hyaline Casts (Auto) 4, Urine Bacteria (Auto) NEGATIVE, Urine Squamous Epithelial Cells 0, Urine Mucus (Auto) SMALL, Urine Sperm (Auto) , Anion Gap 5L, Glomerular Filtration Rate 54.5, Lactic Acid Level 2.9*H, Calcium Level 9.0, Total Bilirubin 0.7, Direct Bilirubin 0.2, Aspartate Amino Transf (AST/SGOT) 17, Alanine Aminotransferase (ALT/SGPT) 22, Alkaline Phosphatase 64, Total Creatine Kinase 87, Creatine Kinase MB 1.4, Creatine Kinase MB Relative Index 1.61, Troponin I 0.06, Total Protein 6.3L, Albumin 2.6L, Albumin/Globulin Ratio 0.70L, Thyroid Stimulating Hormone (TSH) 0.854 01/21/19 23:07: POC pH (Misc Panel) 7.380, POC Base Excess (Misc Panel) 12.0H, POC Saturated Percent O2 (Misc) 91L, POC pO2 (Misc Panel) 65.0L, POC pCO2 (Misc Panel) 62.8*H, POC HCO3 (Misc Panel) 37.1H, POC Total CO2 (Misc Panel) 39.0H CBC/BMP Laboratory Tests 01/21/19 22:32 Microbiology Microbiology 01/21/19 Respiratory Virus Panel (PCR) (AMARILYS) - Final, Complete 01/21/19 Blood Culture, Received Pending 01/21/19 Blood Culture, Received Pending Home Medications Scheduled Aloe Vera (Aloe Vera) 237 Ml Gel..ml., 1 DOSE TOP DAILY APPLIES TO HEAD Alprazolam (Alprazolam) 0.25 Mg Tablet, 0.5 MG PO QHS Cholecalciferol (Vitamin D3) (Vitamin D3) 125 Mcg Capsule, 5,000 UNITS PO DAILY Furosemide (Furosemide) 20 Mg Tablet, 20 MG PO DAILY Gabapentin (Gabapentin) 300 Mg Capsule, 300 MG PO DAILY Gabapentin (Gabapentin) 300 Mg Capsule, 600 MG PO QHS Lisinopril (Lisinopril) 10 Mg Tablet, 10 MG PO DAILY Omeprazole (Omeprazole) 40 Mg Capsule.dr, 40 MG PO DAILY Prednisone (Prednisone) 10 Mg Tablet, 10 MG PO DAILY Scheduled PRN Acetaminophen (Tylenol Extra Strength) 500 Mg Tablet, 1,000 MG PO Q6H PRN for PAIN / FEVER Albuterol Sulfate (Proair Hfa) 8.5 Gm Hfa.aer.ad, 2 PUFF INH Q4H PRN for SHORTNESS OF BREATH Ipratropium/Albuterol Sulfate (Iprat-Albut 0.5-3(2.5) mg/3 ml) 3 Ml Ampul.neb, 3 ML INH Q4H PRN for SHORTNESS OF BREATH Allergies Coded Allergies: cephalexin (Unverified Allergy, Severe, SOB "OUT OF IT", 01/21/19) has received zosyn several times without problem levofloxacin (Unverified Allergy, Severe, SOB "OUT OF IT", 05/21/18) moxifloxacin (Unverified Allergy, Severe, SOB "OUT OF IT", 05/21/18) A-FIB/CHADSVASC A-FIB History Current/History of A-Fib/PAF?: No Current PO Anticoag Therapy: No BARBRA BESS MD Jan 22, 2019 01:08
[2019-01-22] MEDS ORDERED: ASPIRIN 600 MG SUPP PR ONE (01:15)
[2019-01-22] MEDS ORDERED: FUROSEMIDE 40 MG/4 ML VIAL (J1940) As Ordered ONE (01:36)
[2019-01-22] MEDS ORDERED: FUROSEMIDE 40 MG/4 ML VIAL (J1940) IV ONE (02:00)
[2019-01-22] MEDS ORDERED: ACETAMINOPHEN *IV* 1,000 MG in IV 1 EA IV ONE (02:00)
[2019-01-22] MEDS ORDERED: LR 1,000 ML IV SCH (03:00)
[2019-01-22] MEDS: DOXYCYCLINE HYCLATE 100 MG in D5W MINI-BAG PLUS 100 ML IV SCH ×2 (03:08→15:01)
[2019-01-22] MEDS: ENOXAPARIN 40 MG/0.4 ML SYRINGE (J1650) SC SCH ×2 (03:46→20:17)
[2019-01-22] MEDS: IPRATROPIUM 0.5MG/ALBUTEROL 2.5MG INH SOL UD 3ML (DUONEB)(J7620) INH SCH ×5 (04:18→20:30)
[2019-01-22] MEDS: PIPERACILLIN/TAZOBACTAM SOD 4.5 GM in D5W MINI-BAG PLUS 100 ML IV SCH ×4 (05:13→23:03)
[2019-01-22 05:54] LABS: BLOOD UREA NITROGEN 31 MG/DL (7-18); CALCIUM LEVEL 8.3 MG/DL (8.8-10.2); CARBON DIOXIDE LEVEL 36 MEQ/L (21-32); CHLORIDE LEVEL 102 MEQ/L (98-107); CREATININE FOR GFR 1.18 MG/DL (0.70-1.30); GLOMERULAR FILTRATION RATE > 60.0 (>42); GLUCOSE, FASTING 125 MG/DL (70-100); HEMATOCRIT 38.4 % (42.0-52.0); HEMOGLOBIN 11.8 g/dl (13.5-17.5); MAGNESIUM LEVEL 1.6 MG/DL (1.8-2.4); MEAN CORPUSCULAR HEMOGLOBIN 31.6 pg (27.0-33.0); MEAN CORPUSCULAR HGB CONC 30.7 g/dl (32.0-36.5); MEAN CORPUSCULAR VOLUME 102.9 fl (80.0-96.0); PLATELET COUNT, AUTOMATED 261 10^3/uL (150-450); POTASSIUM SERUM 4.1 MEQ/L (3.5-5.1); RED BLOOD COUNT 3.73 10^6/uL (4.30-6.10); SODIUM LEVEL 143 MEQ/L (136-145); WHITE BLOOD COUNT 5.9 10^3/uL (4.0-10.0)
[2019-01-22] MEDS ORDERED: CIPROFLOXACIN 400 MG in IV 1 EA IV SCH (06:00)
[2019-01-22] MEDS ORDERED: MAG SULF 1GM/100ML (MAG RUN) 1 GM in IV 1 EA IV ONE (07:15)
--- NOTE | 2019-01-22 08:28 | REP ---
Portable chest x-ray: Single view. History: Altered mental status. Comparison chest x-ray: June 28, 2018. Findings: There is a fairly dense infiltrate in the right lung base consistent with pneumonia. This is a new finding. There are increased markings in the right apex consistent with pleuroparenchymal fibrosis essentially unchanged. Emphysematous changes are noted bilaterally in the upper lobes. Heart is not enlarged. The aorta is tortuous. Impression: New infiltrate right lower lobe consistent with pneumonia. Electronically Signed by Waldemar Lee MD 01/22/2019 08:19 A
[2019-01-22] MEDS: predniSONE 20 MG TAB PO SCH (08:44)
[2019-01-22] MEDS: guaiFENesin ER 600 MG TAB PO SCH ×2 (08:44→20:17)
[2019-01-22] MEDS: GABAPENTIN 300 MG CAP PO SCH ×2 (08:44→20:17)
[2019-01-22] MEDS: FUROSEMIDE 20 MG TAB PO SCH (08:45)
[2019-01-22] MEDS: PANTOPRAZOLE 40MG TAB (PROTONIX) PO SCH (08:45)
[2019-01-22] MEDS ORDERED: FUROSEMIDE 40 MG/4 ML VIAL (J1940) IV SCH (09:00)
[2019-01-22] MEDS ORDERED: ENOXAPARIN 40 MG/0.4 ML SYRINGE (J1650) SC SCH (09:00)
--- NOTE | 2019-01-22 11:11 | ECGEPIP ---
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
[2019-01-22 14:32] LABS: CREATININE,RANDOM URINE 81.8 MG/DL
[2019-01-23] VITALS (7 sets, daily range): BP systolic 111–126; BP diastolic 64–81
[2019-01-23] MEDS: IPRATROPIUM 0.5MG/ALBUTEROL 2.5MG INH SOL UD 3ML (DUONEB)(J7620) INH SCH ×7 (00:44→23:26)
[2019-01-23] MEDS: DOXYCYCLINE HYCLATE 100 MG in D5W MINI-BAG PLUS 100 ML IV SCH ×2 (02:10→14:58)
[2019-01-23] MEDS: PIPERACILLIN/TAZOBACTAM SOD 4.5 GM in D5W MINI-BAG PLUS 100 ML IV SCH ×4 (04:30→23:26)
[2019-01-23 05:09] LABS: HEMATOCRIT 34.7 % (42.0-52.0); HEMOGLOBIN 10.7 g/dl (13.5-17.5); MEAN CORPUSCULAR HEMOGLOBIN 31.1 pg (27.0-33.0); MEAN CORPUSCULAR HGB CONC 30.8 g/dl (32.0-36.5); MEAN CORPUSCULAR VOLUME 100.9 fl (80.0-96.0); PLATELET COUNT, AUTOMATED 227 10^3/uL (150-450); RED BLOOD COUNT 3.44 10^6/uL (4.30-6.10); WHITE BLOOD COUNT 13.6 10^3/uL (4.0-10.0)
[2019-01-23 05:30] LABS: BLOOD UREA NITROGEN 26 MG/DL (7-18); CALCIUM LEVEL 9.2 MG/DL (8.8-10.2); CARBON DIOXIDE LEVEL 35 MEQ/L (21-32); CHLORIDE LEVEL 100 MEQ/L (98-107); CREATININE FOR GFR 0.96 MG/DL (0.70-1.30); GLOMERULAR FILTRATION RATE > 60.0 (>42); GLUCOSE, FASTING 147 MG/DL (70-100); MAGNESIUM LEVEL 2.3 MG/DL (1.8-2.4); SODIUM LEVEL 140 MEQ/L (136-145)
[2019-01-23] MEDS: FUROSEMIDE 20 MG TAB PO SCH (09:00)
[2019-01-23] MEDS: predniSONE 20 MG TAB PO SCH (09:25)
[2019-01-23] MEDS: guaiFENesin ER 600 MG TAB PO SCH ×2 (09:25→21:47)
[2019-01-23] MEDS: PANTOPRAZOLE 40MG TAB (PROTONIX) PO SCH (09:26)
[2019-01-23] MEDS: GABAPENTIN 300 MG CAP PO SCH ×2 (09:26→21:47)
--- NOTE | 2019-01-23 13:31 | IPN ---
DATE: 01/23/2019 Patient's breathing is better. Still coughing. Fairly dry. Very minimal thick sputum production, thick, yellow. No fever or chills overnight. Blood pressure has been well maintained with systolic of 106-116-122. Patient denies any chest pain, pressure or tightness, lightheadedness or dizziness. He has not ambulated, and appears to be stable for medical-surgical floor. No other complaints. Denies significant nausea, vomiting, epigastric pain. Eating well. Urine output has been stable and the Peres catheter has been discontinued. Vital Signs: Temperature 97.7, pulse 89, respiratory rate 18, blood pressure 114/69, 97% on 3 liters nasal cannula. Generally, patient is awake, alert, oriented to person, place and time. No use of respiratory accessory muscle. No jaundice. No cyanosis or pallor. No jugular venous distention (JVD) on exam. No thyromegaly or cervical lymphadenopathy. Moist mucous membranes. Lungs: Air entry are equal bilaterally. Diminished breath sounds with right basilar crackles. Abdomen is soft, nontender, nondistended. Positive bowel sounds. No hepatosplenomegaly. No rebound or guarding. Extremities: No cyanosis, clubbing or pitting edema. White count 13.6, hemoglobin 10, hematocrit 34, platelet count 227. Sodium 140, potassium 4, chloride 100, bicarbonate 35, BUN 26, creatinine 0.96, glucose 147, lactic acid 1.9. Microbiology: Sputum culture pending. Respiratory panel negative. Two sets of blood cultures negative. Chest x-ray: Right lower lobe pneumonia. ASSESSMENT AND PLAN: This is a 73-year-old male with advanced emphysema does not follow with a philanthropy officer with cor pulmonale, right-sided heart failure and diastolic dysfunction with preserved ejection fraction and hypertension, reflux and anxiety admitted for right-sided pneumonia and chronic obstructive pulmonary disease (COPD) exacerbation. IMPRESSION: 1. Right lower lobe pneumonia. Patient currently is on IV Zosyn and doxycycline for atypical coverage. afebrile no chills dry cough with improved sob to baseline. leukocytosis most likely due to steroids given for copd exacerbation. 2. COPD exacerbation. Currently on prednisone. Appears to be stable. Nebulizer treatments. Supplemental oxygen. 3. Chronic hypoxic respiratory failure. On supplemental oxygen. 4. Diastolic heart failure. compensated. appears euvolemic today On home dose of Lasix. 5. Chronic neuropathy. On gabapentin. 6. Reflux. On proton pump inhibitor (PPI). 7. Anxiety. Currently stable. DISPOSITION: Transfer to medical-surgical floor. [facility]
[2019-01-23] MEDS: ENOXAPARIN 40 MG/0.4 ML SYRINGE (J1650) SC SCH (21:00)
[2019-01-24] MEDS: DOXYCYCLINE HYCLATE 100 MG in D5W MINI-BAG PLUS 100 ML IV SCH ×2 (03:07→15:24)
[2019-01-24] MEDS: IPRATROPIUM 0.5MG/ALBUTEROL 2.5MG INH SOL UD 3ML (DUONEB)(J7620) INH SCH ×5 (04:00→20:00)
[2019-01-24 05:13] VITALS: BP 159/92
[2019-01-24] MEDS: PIPERACILLIN/TAZOBACTAM SOD 4.5 GM in D5W MINI-BAG PLUS 100 ML IV SCH ×2 (05:19→12:05)
[2019-01-24 06:06] VITALS: BP 130/80
[2019-01-24] MEDS: FUROSEMIDE 20 MG TAB PO SCH (08:49)
[2019-01-24] MEDS: predniSONE 20 MG TAB PO SCH (08:49)
[2019-01-24] MEDS: GABAPENTIN 300 MG CAP PO SCH ×2 (08:49→20:08)
[2019-01-24] MEDS: guaiFENesin ER 600 MG TAB PO SCH ×2 (08:49→20:08)
[2019-01-24] MEDS: PANTOPRAZOLE 40MG TAB (PROTONIX) PO SCH (08:49)
[2019-01-24] MEDS ORDERED: FLUBLOK(EGG FREE)(QUAD)INFLUENZA VACC 0.5ML SYRINGE (90682)18YRS&OLDER IM SCH (09:00)
[2019-01-24 14:16] VITALS: BP 128/73
[2019-01-24] MEDS ORDERED: diphenhydrAMINE 25 MG CAP PO ONE (17:00)
[2019-01-24] MEDS ORDERED: methylPREDNISolone INJ 125 MG/2 ML VIAL (J2930) IV ONE (18:00)
[2019-01-24] MEDS ORDERED: CEFDINIR 300 MG CAP (OMNICEF) PO ONE (18:00)
[2019-01-24] MEDS: FLUCONAZOLE 100 MG TAB PO SCH (18:36)
[2019-01-24] MEDS: ENOXAPARIN 40 MG/0.4 ML SYRINGE (J1650) SC SCH (20:09)
[2019-01-24 20:47] VITALS: BP 157/88
[2019-01-24] MEDS ORDERED: ALPRAZolam 0.25 MG TAB PO SCH (21:00)
[2019-01-25 00:07] LABS: BODY FLUID CULTURE Not Indicated (.); LEGIONELLA ANTIGEN URINE Negative (Negative); ORGANISM ID Not indicated. (.); SPECIMEN SOURCE Urine (.); URINE STREP PNEUMONIAE ANTIGEN Positive (Negative)
[2019-01-25] MEDS: methylPREDNISolone INJ 125 MG/2 ML VIAL (J2930) IV SCH ×2 (00:50→06:38)
[2019-01-25] MEDS: IPRATROPIUM 0.5MG/ALBUTEROL 2.5MG INH SOL UD 3ML (DUONEB)(J7620) INH SCH ×4 (04:00→11:36)
[2019-01-25 06:42] VITALS: BP 154/88
[2019-01-25 07:08] LABS: HEMATOCRIT 35.6 % (42.0-52.0); HEMOGLOBIN 10.7 g/dl (13.5-17.5); MEAN CORPUSCULAR HEMOGLOBIN 30.7 pg (27.0-33.0); MEAN CORPUSCULAR HGB CONC 30.1 g/dl (32.0-36.5); PLATELET COUNT, AUTOMATED 305 10^3/uL (150-450); RED BLOOD COUNT 3.49 10^6/uL (4.30-6.10); WHITE BLOOD COUNT 5.1 10^3/uL (4.0-10.0)
[2019-01-25] MEDS ORDERED: PRED10TA2 PO (07:49)
[2019-01-25] MEDS ORDERED: CEFD300CAP PO (07:49)
[2019-01-25] MEDS ORDERED: BACITAB PO (07:49)
[2019-01-25] MEDS ORDERED: CEFDINIR 300 MG CAP (OMNICEF) PO ONE (08:00)
[2019-01-25] MEDS: FUROSEMIDE 20 MG TAB PO SCH (08:40)
[2019-01-25] MEDS: guaiFENesin ER 600 MG TAB PO SCH (08:40)
[2019-01-25] MEDS: PANTOPRAZOLE 40MG TAB (PROTONIX) PO SCH (08:40)
[2019-01-25] MEDS: FLUCONAZOLE 100 MG TAB PO SCH (08:40)
[2019-01-25] MEDS: GABAPENTIN 300 MG CAP PO SCH (08:41)
[2019-01-25] MEDS ORDERED: CEFDINIR 300 MG CAP (OMNICEF) PO SCH (09:00)
--- NOTE | 2019-01-25 09:24 | IPN ---
DATE OF SERVICE: 01/24/2019 Patient says that he has constant wheezing never really clears. According to his primary care physician, he has not seen a security system sales consultant in several years. Has 3 liters of home oxygen, which is chronic. Currently without dyspnea on exertion. Denies any shortness of breath. Still coughs with thick white-yellow sputum. Per the at the bedside, patient has had allergic reactions to cephalexin, Levaquin, moxifloxacin causing muscle aches myalgias. No respiratory distress or anterior edema in the past. Patient is anxious to go home. Still with wheezing on exam, which he says is chronic. He has passed a home safety evaluation. He otherwise denies any chest pain or pressure. Ambulating well. Temperature 97.4, pulse 92, respiratory rate 18, blood pressure 128/73, 97% on 2 liters nasal cannula. Generally patient is using abdominal muscle, which the patient says is chronic. He is speaking in full sentence. He has bilateral wheezing on exam, diminished breath sounds. No nasal flaring. Speaks in full sentences. Heart: S1, S2, sinus rhythm. No murmurs, rubs or gallops. Abdomen is soft, nontender, nondistended, doughy in appearance. Extremities: No cyanosis, clubbing. Trace edema bilaterally. Laboratory data, microbiology have been reviewed. Notable for Streptococcus pneumoniae, yeast-like organisms. ASSESSMENT AND PLAN: 73-year-old with chronic hypoxia on 3 liters of home oxygen, chronic obstructive pulmonary disease (COPD), does not have a security system sales consultant, advanced emphysema, cor pulmonale and right-sided heart failure, diastolic dysfunction with preserved ejection fraction (EF), hypertension, reflux and anxiety admitted for right-sided pneumonia and COPD exacerbation. IMPRESSION: 1. COPD exacerbation secondary to pneumonia. Patient is currently on prednisone but wheezing currently, therefore, IV Solu-Medrol will be given with rapid tapering once improved. 2. Sepsis secondary to pneumonia on admission. Currently with streptococcus pneumoniae and yeast found on sputum culture. Patient had been on Zosyn and doxycycline de-escalated antibiotics to Omnicef and Diflucan. If patient has no significant reaction overnight may be discharged home on Omnicef to complete a 7 day course total antibiotics. 3. Acute kidney injury secondary to sepsis, resolved. Patient has been hydrated. Lactic acidosis has resolved. Patient is currently on his home dose of Lasix. 4. Congestive heart failure, diastolic dysfunction. Currently euvolemic. DISPOSITION: Discharge in the morning if stable overnight on Omnicef. MTDD
[2019-01-25] MEDS ORDERED: FLUC10TA PO (11:16)
--- NOTE | 2019-01-27 14:58 | DSES ---
DATE OF ADMISSION: 01/22/2019 DATE OF DISCHARGE: 01/25/2019 DISCHARGE DIAGNOSES: 1. Right lower lobe Streptococcus pneumonia. Sputum culture with Streptococcus pneumonia and yeast. 2. Yeast in the sputum. 3. Acute chronic obstructive pulmonary disease (COPD) exacerbation. 4. Chronic hypoxic respiratory failure, oxygen dependent at 3 liters at baseline. 5. Sepsis secondary to pneumonia. 6. Acute kidney injury secondary to sepsis. 7. Congestive heart failure (CHF) diastolic dysfunction, which is compensated. DISCHARGE MEDICATIONS: - cefdinir 300 mg twice a day for two days - Diflucan 100 mg daily for five days - Bacid one tablet by mouth twice a day for two days - prednisone taper - acetaminophen 1 gram every 6 hours as needed - albuterol (ProAir) two puffs every 4 hours - aloe vera topically - Xanax 0.5 mg at bedtime - vitamin D 5000 units daily - Lasix 20 mg daily - gabapentin 300 mg daily, 600 mg at bedtime - Combivent 3 mL every 4 hours - lisinopril 10 mg daily - Prilosec 40 mg daily Patient may resume home dose of prednisone after his taper. Followup with primary care within a week of discharge. Primary care physician to refer to Dr. Isabel within 1-2 weeks. DISCHARGE INSTRUCTIONS: Patient is to complete his antibiotic, antifungal medications, use his nebulizer treatments and call his doctor if he has worsening symptoms of shortness of breath, fever or chills. HOSPITAL COURSE: This is a 73-year-old male who presented to the emergency room with worsening shortness of breath, distress and fever of 102.6. Microbiology grew out Streptococcus pneumonia. Chest x-ray showed right lower lobe infiltrate. Due to allergy to cephalexin, Levaquin and moxifloxacin, the patient was started on Zosyn and doxycycline. The patient had defervescence and was given prednisone for COPD exacerbation with increase in white count to 13,000. On tapering dose, the patient's white count decreased to 5.1. Respiratory panel was negative. Two sets of blood cultures were negative after 72 hours. The patient had symptomatic relief with decreased sputum production and increased tolerance with ambulation. He passed a home safety evaluation. His antibiotics of Zosyn and doxycycline were de-escalated to cefdinir. He was watched in the hospital to see if he would have an angioedema reaction since cephalexin was listed as an allergy. The patient had no trouble breathing or stridor, no angioedema on cefdinir and he was safely discharged home on this medication. PHYSICAL EXAMINATION ON DISCHARGE: Temperature 97.1, pulse 85, respiratory rate 16, blood pressure 154/88, 96% on 3 liters nasal cannula. Generally awake, alert and oriented. Anicteric. No use of respiratory accessory muscles. Lungs with faint wheezing, diminished but is significantly improved from yesterday. Clear in the upper lobes with faint wheezing at the bases. Heart S1, S2 sinus rhythm. Abdomen is obese, soft, nontender. Extremities trace edema. LABORATORY DATA: White count 5.1, hemoglobin 10, hematocrit 35, platelet count 305. Sodium 140, potassium 4, chloride 100, bicarb 35, BUN 26, creatinine 0.96, glucose of 147. Microbiology: Sputum culture Streptococcus pneumonia, yeastlike organisms. Respiratory panel negative. Two sets of blood cultures negative after 72 hours. Chest x-ray right lower lobe infiltrate consistent with pneumonia. Time spent on hospital discharge: 30 minutes. [facility]
== END 2019-01-25 12:15 | disposition home or self-care (01) | DRG 871 ==
LOC: M ED 22:08 → M ED INP 01-22 00:46 → M ICU 01-22 02:21 → M MS5PR 01-23 16:34
PROVIDERS: ADMIT Internal Medicine; ATTEND General Practice
DX: A41.9 Sepsis, unspecified organism (principal); J15.4 Pneumonia due to other streptococci; J96.21 Acute and chronic respiratory failure with hypoxia; J96.22 Acute and chronic respiratory failure with hypercapnia; I50.32 Chronic diastolic (congestive) heart failure; J44.1 Chronic obstructive pulmonary disease with (acute) exacerbation; N17.9 Acute kidney failure, unspecified; J44.0 Chronic obstructive pulmonary disease with (acute) lower respiratory infection; Z79.899 Other long term (current) drug therapy; Z99.81 Dependence on supplemental oxygen; I27.81 Cor pulmonale (chronic); K21.9 Gastro-esophageal reflux disease without esophagitis; F41.9 Anxiety disorder, unspecified; Z87.891 Personal history of nicotine dependence; G62.9 Polyneuropathy, unspecified

== ENCOUNTER → 2019-10-16 | Outpatient (CLI) | payer MEDICARE, OTHER ==
[~2019-10-16] MED LIST changes: +ACET-897 PO; +ALOE237G TOP; +AMLO1TAB24 PO; -AMLO5TAB6 PO; -ASPI81TA85 PO; +ASPI81TA86 PO; +BACITAB PO; +D-50CAP PO; +FLUC10TA PO; -OMEP-172 PO; +OMEP1CAP73 PO
--- NOTE | 2019-11-11 08:36 | REP ---
LOW DOSE LUNG SCREENING: HISTORY: History of nicotine dependence. TECHNIQUE: Axial noncontrast images from the thoracic inlet to the upper abdomen using lung screening technique. COMPARISON: Chest CT dated 04/28/15. FINDINGS: Marked advanced COPD/emphysematous changes are appreciated along with scattered ill-defined scarring including ill-defined areas of opacity and density. As example, there is a 19 mm area of soft tissue surrounded by scarring in the posterior left upper lobe as well as smaller scattered similar areas throughout the lung cazares. No effusion. No pneumothorax. The tracheobronchial tree is patent and bronchiectasis is noted. The mediastinum demonstrates significant atherosclerotic disease to the thoracic aorta and coronary arteries. Nonspecific mediastinal and hilar adenopathy suggested as well. IMPRESSION: Advanced COPD/emphysematous changes with presumed scattered scarring including central areas of soft tissue density primarily noted in the left upper lobe as well as bilateral lower lobes. Findings cannot be classified by Fleischner's Society criteria. A short term follow up [address] examination may be warranted to confirm findings and set baseline. MTDD
== END ==
LOC: M RAD 08:21
PROVIDERS: ATTEND Physician Assistant
DX: J44.9 Chronic obstructive pulmonary disease, unspecified (principal); R91.8 Other nonspecific abnormal finding of lung field; Z87.891 Personal history of nicotine dependence

== ENCOUNTER → 2019-11-18 | Outpatient (CLI) | payer OTHER ==
--- NOTE | 2019-11-24 14:44 | REP ---
PET CT HISTORY: Solitary pulmonary nodule. COMPARISON: CT study chest 10/16/2019. This shows an ill-defined nodular opacity in the posterior aspect of the left upper lobe. There are nodular densities in the right upper lobe as well. TECHNIQUE: 1 hour 11 minutes following the intravenous injection of a 9.05 mCi dose of F18 fluorodeoxyglucose (FDG), three-dimensional PET CT imaging is acquired in the usual fashion from the skull base to the proximal thighs. PET CT FINDINGS: The recently identified nodular ill-defined opacity in the left upper lobe has resolved on todays accompanying CT study. No abnormal hypermetabolic uptake is seen here. There are patchy areas of non-hypermetabolic FDG accumulation in the nodular opacities in the right upper lobe. Maximum standard uptake value 1.86. There is a pleural-based area of thickening and streaky parenchymal density in the left lower lobe posteriorly, which is seen on the CT study from 10/16/2019. Maximum standard uptake value here is very slightly hypermetabolic at 2.63. There are granulomatous lymph node calcifications in the hilar and mediastinal regions and some equivocal sade uptake is seen. No definite adenopathy. Maximum standard uptake value is in a left hilar lymph node 4.27. No other abnormal intrathoracic metabolic activity. No abnormal hypermetabolic uptake is seen in the abdomen or pelvis. Head and neck soft tissues are unremarkable. IMPRESSION: The recently noted suspicious ill-defined nodular opacity in the left upper lobe has resolved. There is patchy non-hypermetabolic uptake in the right upper lobe and a small barely hypermetabolic pleural-based density seen in the left lower lobe. There are granulomatous lymph node changes in the hilar and mediastinal region and equivocal sade uptake is seen. This may be granulomatous disease. Continued CT follow-up is suggested. Otherwise negative PET CT study. MTDD
== END ==
LOC: M PLARAD 14:20
PROVIDERS: ATTEND Physician Assistant
DX: R91.1 Solitary pulmonary nodule (principal)
CPT/HCPCS: 78815; A9552

== ENCOUNTER → 2020-02-24 | Outpatient (CLI) | payer MEDICARE ==
[~2020-02-24] MED LIST changes: +GABA-282 PO; -GABA-843 PO
[2020-02-24 11:37] LABS: BASO # 0.1 10^3/uL (0.0-0.2); BASO % 0.8 % (0.0-1.0); EOS # 0.3 10^3/uL (0.0-0.5); EOS % 2.7 % (0.0-3.0); HEMATOCRIT 42.1 % (42.0-52.0); HEMOGLOBIN 12.7 g/dl (13.5-17.5); LYMPH # 2.6 10^3/uL (1.5-5.0); LYMPH % 27.9 % (24.0-44.0); MEAN CORPUSCULAR HEMOGLOBIN 31.5 pg (27.0-33.0); MEAN CORPUSCULAR HGB CONC 30.2 g/dl (32.0-36.5); MEAN CORPUSCULAR VOLUME 104.5 fl (80.0-96.0); MONO # 1.1 10^3/uL (0.0-0.8); MONO % 11.5 % (0.0-5.0); NEUTROPHILS # 5.3 10^3/uL (1.5-8.5); NEUTROPHILS % 56.1 % (36.0-66.0); PLATELET COUNT, AUTOMATED 309 10^3/uL (150-450); RED BLOOD COUNT 4.03 10^6/uL (4.30-6.10); WHITE BLOOD COUNT 9.5 10^3/uL (4.0-10.0)
[2020-02-24 13:49] LABS: ALBUMIN 3.3 GM/DL (3.2-5.2); ALT/SGPT 22 U/L (12-78); BILIRUBIN,TOTAL 0.5 MG/DL (0.2-1.0); BLOOD UREA NITROGEN 22 MG/DL (7-18); CALCIUM LEVEL 9.6 MG/DL (8.8-10.2); CARBON DIOXIDE LEVEL 40 MEQ/L (21-32); CHLORIDE LEVEL 100 MEQ/L (98-107); CHOLESTEROL LEVEL 309 MG/DL (<200); CHOLESTEROL RISK RATIO 3.551 (<5); CREATININE FOR GFR 1.06 MG/DL (0.70-1.30); FREE T4 1.01 NG/DL (0.76-1.46); GLOMERULAR FILTRATION RATE > 60.0 (>42); GLUCOSE, FASTING 95 MG/DL (70-100); HDL CHOLESTEROL 87 MG/DL (>40); LDL CHOLESTEROL 185 MG/DL (<100); NON-HDL-C 222 MG/DL; POTASSIUM SERUM 4.5 MEQ/L (3.5-5.1); SODIUM LEVEL 141 MEQ/L (136-145); TRIGLYCERIDES LEVEL 187 MG/DL (<150)
== END ==
LOC: M WUC 09:02
PROVIDERS: ATTEND Family Medicine
DX: J44.9 Chronic obstructive pulmonary disease, unspecified (principal); I10 Essential (primary) hypertension; E78.5 Hyperlipidemia, unspecified

== ENCOUNTER → 2020-05-19 | Outpatient (CLI) | payer MEDICARE ==
[~2020-05-19] MED LIST changes: +LISI10TA22 PO; -LISI10TA4 PO
--- NOTE | 2020-05-19 08:30 | REP ---
INDICATION: SOLITARY PULMONARY NODULE. COMPARISON: Chest CT dated 04/28/2015 and low-dose lung screening chest CT dated 10/16/2019. TECHNIQUE: Chest CT without IV contrast. FINDINGS: On the prior study of 10/16/2019 there was a 19 mm zone of increased parenchymal density posteriorly in the left upper lobe that was not present on 04/28/2015. This is no longer present on the study today, likely transient atelectasis or resolved infiltrate. There is a focal zone of subpleural bulla accompanied by interstitial scarring posteriorly in the right upper lobe, unchanged from 10/16/2019. The scarring in this area has progressed from 04/28/2015. There is a focal parenchymal scar inferiorly in the right middle lobe unchanged from both prior studies. There is extensive bullous replacement of the lung parenchyma bilaterally, similar to both prior studies. There are no new lung nodules or masses. There are no acute infiltrates or pleural effusions. There is chronic mild nodular thickening of the pleura on the left laterally and posteriorly and on the right posteriorly in the right upper lobe. 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 IMPRESSION: There are no lung masses or nodules. There are no acute infiltrates or pleural effusions. There are zones of chronic scarring posteriorly in the right upper lobe and inferiorly in the right middle lobe. The focal density identified posteriorly in the left upper lobe on 10/16/2019 is no longer present compatible with transient infiltrate or transient atelectasis. There is stable bilateral nodular pleural thickening as described. There is extensive bullous replacement of the lung parenchyma, unchanged. <Electronically signed by Jamel Sequeira > 05/19/20 [id number]
== END ==
LOC: M RAD 07:48
PROVIDERS: ATTEND Internal Medicine Pulmonary Disease
DX: R91.1 Solitary pulmonary nodule (principal)

== ENCOUNTER 2020-07-25 11:53 | Observation (INO) | payer MEDICARE ==
[~2020-07-25] VITALS: Ht 167.6 cm; Wt 74.0 kg
[2020-07-25] MEDS ORDERED: TREL1AER PO (12:02)
[2020-07-25] MEDS ORDERED: IPRATROPIUM 0.5MG/ALBUTEROL 2.5MG INH SOL UD 3ML (DUONEB) NEB ONE (12:40)
[2020-07-25] MEDS ORDERED: ALBUTEROL SULFATE 2.5 MG/0.5 ML INH NEB SOLN NEB ONE (12:40)
[2020-07-25] MEDS ORDERED: methylPREDNISolone 125MG 2ML VIAL IV ONE (12:40)
--- NOTE | 2020-07-25 13:05 | REP ---
INDICATION: DYSPNEA/COUGH. COMPARISON: Comparison chest x-ray January 21, 2019. TECHNIQUE: Portable upright AP chest radiograph. FINDINGS: There is diffuse interstitial fibrosis pattern in the lung cazares which is chronic. This is most pronounced in the right upper lobe and in the bases. No focal infiltrate is appreciated. Pleural angles are sharp. Heart is not enlarged. The aorta is somewhat tortuous.. IMPRESSION: Evidence of COPD with diffuse interstitial fibrosis pattern. No definite focal infiltrate.. <Electronically signed by Luis Lee > 07/25/20 [id number]
[2020-07-25 13:14] LABS: BASO # 0.1 10^3/uL (0.0-0.2); BASO % 0.7 % (0.0-1.0); EOS # 0.1 10^3/uL (0.0-0.5); EOS % 0.6 % (0.0-3.0); HEMATOCRIT 41.8 % (42.0-52.0); HEMOGLOBIN 12.6 g/dl (13.5-17.5); LYMPH # 0.7 10^3/uL (1.5-5.0); LYMPH % 6.1 % (24.0-44.0); MEAN CORPUSCULAR HGB CONC 30.1 g/dl (32.0-36.5); MEAN CORPUSCULAR VOLUME 102.7 fl (80.0-96.0); MONO # 0.4 10^3/uL (0.0-0.8); NEUTROPHILS # 9.5 10^3/uL (1.5-8.5); NEUTROPHILS % 87.8 % (36.0-66.0); PLATELET COUNT, AUTOMATED 304 10^3/uL (150-450); RED BLOOD COUNT 4.07 10^6/uL (4.30-6.10); WHITE BLOOD COUNT 10.8 10^3/uL (4.0-10.0)
[2020-07-25 13:44] LABS: ALT/SGPT 22 U/L (12-78); BILIRUBIN,DIRECT < 0.1 MG/DL (0.0-0.2); BILIRUBIN,TOTAL 0.4 MG/DL (0.2-1.0); BLOOD UREA NITROGEN 14 MG/DL (7-18); CALCIUM LEVEL 8.7 MG/DL (8.8-10.2); CARBON DIOXIDE LEVEL 43 MEQ/L (21-32); CHLORIDE LEVEL 97 MEQ/L (98-107); CK-MB VALUE MASS < 1.0 NG/ML (<3.6); CPK CREATINE PHOSPHOKINASE 68 U/L (39-308); CREATININE FOR GFR 0.92 MG/DL (0.70-1.30); GLOMERULAR FILTRATION RATE > 60.0 (>42); GLUCOSE, FASTING 117 MG/DL (70-100); MB/CK RELATIVE INDEX 1.47 (< OR =4); POTASSIUM SERUM 4.8 MEQ/L (3.5-5.1); SODIUM LEVEL 139 MEQ/L (136-145); TOTAL PROTEIN 6.7 GM/DL (6.4-8.2)
[2020-07-25 13:45] LABS: ALBUMIN 2.8 GM/DL (3.2-5.2); NT-PRO BNP 202 PG/ML (<125); THYROID STIMULATING HORMONE 0.908 uIU/ML (0.358-3.740); THYROXINE (T4) 9.1 UG/DL (4.5-12.0); TROPONIN I < 0.02 NG/ML (< 0.10)
[2020-07-25 14:54] LABS: RSV AMPLIFICATION NEGATIVE (NEGATIVE)
[2020-07-25] MEDS ORDERED: ALBU83IN INH (14:58)
[2020-07-25] MEDS ORDERED: ACETAMINOPHEN TAB 650MG DOSE (2X325MG) PO PRN (15:05)
[2020-07-25] MEDS ORDERED: ALBUTEROL SULFATE 2.5 MG/0.5 ML INH NEB SOLN NEB PRN (15:05)
[2020-07-25 15:46] VITALS: BP 129/80
[2020-07-25] MEDS: IPRATROPIUM 0.5MG/ALBUTEROL 2.5MG INH SOL UD 3ML (DUONEB) NEB SCH (20:44)
[2020-07-25] MEDS: SYMBICORT 80/4.5MCG INHALER 6GM INH SCH (20:45)
[2020-07-25] MEDS ORDERED: ALPRAZolam 0.5 MG TAB PO SCH (21:00)
[2020-07-25] MEDS: HEPARIN SOD (PORCINE) 5000UNITS/ML 1ML VIAL/SYRINGE SC SCH (21:00)
[2020-07-25] MEDS ORDERED: GABAPENTIN 300 MG CAP PO SCH (21:00)
[2020-07-25 22:00] VITALS: BP 127/80
[2020-07-26] MEDS ORDERED: methylPREDNISolone 125MG 2ML VIAL IV SCH
[2020-07-26] MEDS: IPRATROPIUM 0.5MG/ALBUTEROL 2.5MG INH SOL UD 3ML (DUONEB) NEB SCH ×2 (02:00→08:00)
[2020-07-26] MEDS: HEPARIN SOD (PORCINE) 5000UNITS/ML 1ML VIAL/SYRINGE SC SCH (05:05)
[2020-07-26 06:00] VITALS: BP 120/69
[2020-07-26] MEDS: SYMBICORT 80/4.5MCG INHALER 6GM INH SCH (07:55)
[2020-07-26 08:17] LABS: MEAN CORPUSCULAR HEMOGLOBIN 30.7 pg (27.0-33.0); MEAN CORPUSCULAR HGB CONC 30.8 g/dl (32.0-36.5); MEAN CORPUSCULAR VOLUME 99.7 fl (80.0-96.0); PLATELET COUNT, AUTOMATED 293 10^3/uL (150-450); RED BLOOD COUNT 3.91 10^6/uL (4.30-6.10); WHITE BLOOD COUNT 6.8 10^3/uL (4.0-10.0)
[2020-07-26 08:40] LABS: BLOOD UREA NITROGEN 24 MG/DL (7-18); CALCIUM LEVEL 9.8 MG/DL (8.8-10.2); CARBON DIOXIDE LEVEL 38 MEQ/L (21-32); CHLORIDE LEVEL 97 MEQ/L (98-107); GLOMERULAR FILTRATION RATE > 60.0 (>42); GLUCOSE, FASTING 146 MG/DL (70-100); MAGNESIUM LEVEL 2.4 MG/DL (1.8-2.4); POTASSIUM SERUM 4.4 MEQ/L (3.5-5.1); SODIUM LEVEL 139 MEQ/L (136-145)
[2020-07-26] MEDS ORDERED: OMEPRAZOLE 20 MG CAP PO SCH (09:00)
[2020-07-26] MEDS ORDERED: VITAMIN D 1,000 INTERNATIONAL UNITS TABLET PO SCH (09:00)
[2020-07-26] MEDS ORDERED: FUROSEMIDE 20 MG TAB PO SCH (09:00)
[2020-07-26 09:14] VITALS: BP 132/89
[2020-07-26] MEDS ORDERED: PRED10TA2 PO (10:35)
--- NOTE | 2020-07-26 10:36 | HPEPDOC ---
[facility] Medical History & Physical Date of Admission Jul 25, 2020 Date of Service: Jul 25, 2020 Attending Physician: CECELIA SEGAL MD History and Physical CHIEF COMPLAINT: Shortness of breath, weakness and lethargy HISTORY OF PRESENT ILLNESS: 74-year-old M with a history of advanced COPD/emphysema with chronic oxygen- dependent respiratory failure (3L), chronic HFpEF, pulmonary hypertension with cor pulmonale who was brought to the ED by family for noted increased dyspnea at rest and worse with exertion with decrease exercise tolerance, weakness and lethargy over days, with an associated chronic dry cough, without any note of fever, chills, reported chest pain, palpitations, peripheral edema, abdominal pain. On arrival to the ED, he was hemodynamically stable and he was saturating well on his home 3L. On examination he had diffuse expiratory wheezing and was tachypneic and he was weak and his exercise tolerance was very poor and became winded on walking a few steps which is a deviation from his baseline. Investigations were notable for CXR without opacities or effusion with sharp costophrenic angles but with noted diffuse interstitial fibrosis, WBC was 10.8, Hgb 12,6, platelets 304, na 139, K 4.8, Cr 0.92, LFTs wnl, troponin wnl, proBNP 202, lactic acid 0.9, covid-19 negative and blood cultures were sent. Given the wheezing and reduced exercise tolerance, he was given 125mg IV solumedrol and duoneb and albuterol neb and he is now being admitted to medicine for COPD exacerbation. 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 Chronic diastolic congestive heart failure. Chronic neuropathic pain GERD Anxiety SOCIAL HISTORY: No alcohol No illicit drugs Prior smoker FAMILY HISTORY: Father had CAD and COPD Mother had liver disease ALLERGIES: Please see below. HOME MEDICATIONS: Please see below. PHYSICAL EXAMINATION: VITAL SIGNS: Please see below. GEN: well nourished, well developed, NAD INTEGUMENT: No skin flushing or pallor. No rashes or lesions HEENT: NCAT, acyanotic lips, NC in place, moist mucus membranes, anicteric anicteric, EOMI CVS: RRR, no noted m/r/g LUNGS: He is able to speak full sentences without stopping to take a breath but has pursed lip breathing at the end of the sentence, has nonproductive cough, coarse expiratory rhonchi and scattered wheezing, no wet crackles ABDOMEN:Normoactive bowel sounds, soft & not tender with palpation EXTREMITIES: WWP, no LE edema, 2sec cap refill, 2+ DP pulses NEURO: CN 3-12 are grossly intact, speech is not dysarthric, moving all extremities with full strength PSYCH: AOx3 LABORATORY DATA and IMAGING: as noted above in HPI, otherwise see below for full details. MICROBIOLOGY: Please see below. ASSESSMENT: 74-year-old male with a past COPD with chronic oxygen-dependent respiratory failure, pulmonary hypertension with cor pulmonale, chronic hypertension and HFpEF who is being admitted for a COPD exacerbation. PLAN: Chronic hypoxemic respiratory failure i/s/o coexisting chronic oxygen-dependent respiratory failure and cor pulmonale, pulmonary hypertension -Chest x-ray reviewed above, with no evidence of pneumonia or effusions -He is dependent on 3L at baseline, continue supplemental oxygen -tessalon perls for cough Acute COPD exacerbation -supplemental O2 to saturation >89% -Duonebs Q6H -Albuterol nebs Q4HP -Solumedrol 80mg IV BID -Omeprazole 40mg daily -Symbicort in place of trelegy Metabolic Encephalopathy 2/2 Sepsis He has been acting confused His GCS was 12 in the ER Suspect this will improve once the infection is treated Chronic diastolic congestive heart: compensated -continue home Lasix 20mg QD Chronic HTN -lisinopril 10mg QD -lasix 20mg QD Chronic neuropathic pain -Continue gabapentin GERD -continue omeprazole 40mg daily Anxiety -continue home alprazolam DVT prophylaxis with heparin SC Dispo: medsurg Vital Signs Vital Signs Date Time Temp Pulse Resp B/P (MAP) Pulse Ox O2 Delivery O2 Flow Rate FiO2 07/25/20 14:58 97 18 95 Nasal Cannula 3.0 07/25/20 14:45 134/69 (90) 07/25/20 11:53 97.9 Laboratory Data Labs 24H Laboratory Tests 2 07/25/20 12:58: Immature Granulocyte % (Auto) 0.8, Neutrophils (%) (Auto) 87.8H, Lymphocytes (%) (Auto) 6.1L, Monocytes (%) (Auto) 4.0, Eosinophils (%) (Auto) 0.6, Basophils (%) (Auto) 0.7, Neutrophils # (Auto) 9.5H, Lymphocytes # (Auto) 0.7L, Monocytes # (Auto) 0.4, Eosinophils # (Auto) 0.1, Basophils # (Auto) 0.1, Nucleated Red Blood Cells % (auto) 0.0, Anion Gap , Glomerular Filtration Rate > 60.0, Lactic Acid Level 0.9, Calcium Level 8.7L, Total Bilirubin 0.4, Direct Bilirubin < 0.1, Aspartate Amino Transf (AST/SGOT) 13, Alanine Aminotransferase (ALT/SGPT) 22, Alkaline Phosphatase 68, Total Creatine Kinase 68, Creatine Kinase MB < 1.0, Creatine Kinase MB Relative Index 1.47, Troponin I < 0.02, WW-Ilb-M-Type Natriuretic Peptide 202H, Total Protein 6.7, Albumin 2.8L, Albumin/Globulin Ratio 0.7, Thyroid Stimulating Hormone (TSH) 0.908, Thyroxine (T4) 9.1 07/25/20 14:06: Coronavirus (COVID-19)(PCR) NEGATIVE, Influenza Type A (RT-PCR) NEGATIVE, Influenza Type B (RT-PCR) NEGATIVE, Respiratory Syncytial Virus (PCR) NEGATIVE CBC/BMP Laboratory Tests 07/25/20 12:58 Microbiology Microbiology 07/25/20 Blood Culture, Received Pending 07/25/20 Blood Culture, Received Pending Home Medications Scheduled Alprazolam (Alprazolam) 0.25 Mg Tablet, 0.5 MG PO QHS Cholecalciferol (Vitamin D3) (Vitamin D3) 125 Mcg Capsule, 5,000 UNITS PO DAILY Fluticasone/Umeclidin/Vilanter (Trelegy Ellipta 100-62.5-25) 1 Each Blst.w.dev, 1 PUFF PO DAILY Furosemide (Furosemide) 20 Mg Tablet, 20 MG PO DAILY Gabapentin (Gabapentin) 300 Mg Capsule, 600 MG PO QHS Lisinopril (Lisinopril) 10 Mg Tablet, 10 MG PO DAILY Omeprazole (Omeprazole) 40 Mg Capsule.dr, 40 MG PO DAILY Prednisone (Prednisone) 10 Mg Tablet, 1 TAB PO ASDIRECTED 60mg QD for 5d, then 50mg QD for 5d, then 40mg QD for 5d, then 30mg QD for 5d, then 20mg QD, then 10mg QD. Scheduled PRN Albuterol Sulf (Albuterol Sulfate) 2.5 Mg/3 Ml Vial.neb, 1 VIAL INH QID PRN for SOB/WHEEZING Albuterol Sulfate (Proair Hfa) 8.5 Gm Hfa.aer.ad, 2 PUFF INH Q4H PRN for SHORTNESS OF BREATH Allergies Coded Allergies: cephalexin (Unverified Allergy, Severe, SOB "OUT OF IT", 01/21/19) has received zosyn several times without problem levofloxacin (Unverified Allergy, Severe, SOB "OUT OF IT", 05/21/18) moxifloxacin (Unverified Allergy, Severe, SOB "OUT OF IT", 05/21/18) A-FIB/CHADSVASC A-FIB History Current/History of A-Fib/PAF?: No Current PO Anticoag Therapy: No Age/Risk Factor Scoring CHADSVASC: CHADSVASC Response (Comments) Value Age Risk Factor Age 65-74 years old 1 Gender Risk Factor Male 0 Hx of CHF Yes 1 Hx of HTN Yes 1 Hx of Stroke/TIA/or VTE No 0 Hx of Diabetes No 0 Hx of Vascular Disease No 0 Total 3 Treatment Treatment ordered: NONE Reason Anticoagulant not given: Not indicated/[id number] CECELIA SEGAL MD Jul 25, 2020 15:49
--- NOTE | 2020-07-26 10:49 | DS.PDOC ---
Discharge Summary General Date of Admission Jul 25, 2020 at 15:04 Date of Discharge 07/26/2020 Attending Physician: CECELIA SEGAL MD Discharge Summary PROCEDURES PERFORMED DURING STAY: None ADMITTING DIAGNOSES: COPD exacerbation DISCHARGE DIAGNOSES: Acute exacerbation of advanced COPD/emphysema with chronic oxygen-dependent respiratory failure (3L) Pulmonary hypertension with cor pulmonale Chronic hypertension. Chronic diastolic congestive heart failure. Chronic neuropathic pain GERD Anxiety COMPLICATIONS/CHIEF COMPLAINT: Copd With Exacerbation. HISTORY OF PRESENT ILLNESS: 74-year-old M with a history of advanced COPD/emphysema with chronic oxygen- dependent respiratory failure (3L), chronic HFpEF, pulmonary hypertension with cor pulmonale who was brought to the ED by family for noted increased dyspnea at rest and worse with exertion with decrease exercise tolerance, weakness and lethargy over days, with an associated chronic dry cough, without any note of fever, chills, reported chest pain, palpitations, peripheral edema, abdominal pain. HOSPITAL COURSE: On arrival to the ED, he was hemodynamically stable and he was saturating well on his home 3L. On examination he had diffuse expiratory wheezing and was tachypneic and he was weak and his exercise tolerance was very poor and became winded on walking a few steps which is a deviation from his baseline. Investigations were notable for CXR without opacities or effusion with sharp costophrenic angles but with noted diffuse interstitial fibrosis, WBC was 10.8, Hgb 12,6, platelets 304, na 139, K 4.8, Cr 0.92, LFTs wnl, troponin wnl, proBNP 202, lactic acid 0.9, covid-19 negative and blood cultures were sent. Given the wheezing and reduced exercise tolerance, he was given 125mg IV solumedrol and duoneb and albuterol neb and was better by the time I evaluated him for admission. He was admitted to medicine for COPD exacerbation and was much improved by the morning of day without wheezing on examination, breathing comfortably on his baseline 3L, grooming himself and asking to be discharged home because him and his were holding birthday celebrations for their 4 year old great grandson today and he would love to be there. He is now being discharged with a long pred taper of 1 month after which he will return to his baseline 10mg daily as well as close PCP and pulmonology follow up. DISCHARGE MEDICATIONS: Please see below. ALLERGIES: Please see below. PHYSICAL EXAMINATION ON DISCHARGE: VITAL SIGNS: Please see below. GEN: well nourished, well developed, NAD INTEGUMENT: No skin flushing or pallor. No rashes or lesions HEENT: NCAT, acyanotic lips, NC in place, moist mucus membranes, anicteric anicteric, EOMI CVS: RRR, no noted m/r/g LUNGS: Diminished, no wheezing, or rhonchi this morning, speaking full sentences. Has dry scattered crackles. ABDOMEN:Normoactive bowel sounds, soft & not tender with palpation EXTREMITIES: WWP, no LE edema, 2sec cap refill, 2+ DP pulses NEURO: CN 3-12 are grossly intact, speech is not dysarthric, moving all extremities with full strength PSYCH: AOx3 LABORATORY DATA: Please see below. IMAGING: CXR: There is diffuse interstitial fibrosis pattern in the lung cazares which is chronic. This is most pronounced in the right upper lobe and in the bases. No focal infiltrate is appreciated. Pleural angles are sharp. Heart is not enlarged. The aorta is somewhat tortuous.. IMPRESSION: Evidence of COPD with diffuse interstitial fibrosis pattern. No definite focal infiltrate. PROGNOSIS: Good, but with high risk for readmission given advanced state of COPD ACTIVITY: As tolerated DIET: 2g sodium DISCHARGE PLAN: Home with home PT, prednisone taper and close pulm and PCP follow up. DISPOSITION: Home with home PT DISCHARGE INSTRUCTIONS: Please take the prednisone taper as prescribed and follow up closely with pulmonology and PCP. ITEMS TO FOLLOWUP ON ON OUTPATIENT: Advanced COPD DISCHARGE CONDITION: Stable TIME SPENT ON DISCHARGE: Greater than minutes. Vital Signs/I&Os Vital Signs Date Time Temp Pulse Resp B/P (MAP) Pulse Ox O2 Delivery O2 Flow Rate FiO2 07/26/20 09:14 132/89 07/26/20 09:00 3.0 07/26/20 06:00 96.5 63 18 98 Nasal Cannula I&O- Last 24 Hours up to 6 AM 07/26/20 06:00 Intake Total 650 ml Balance 650 ml Laboratory Data Labs 24H Laboratory Tests 2 07/25/20 12:58: Immature Granulocyte % (Auto) 0.8, Neutrophils (%) (Auto) 87.8H, Lymphocytes (%) (Auto) 6.1L, Monocytes (%) (Auto) 4.0, Eosinophils (%) (Auto) 0.6, Basophils (%) (Auto) 0.7, Neutrophils # (Auto) 9.5H, Lymphocytes # (Auto) 0.7L, Monocytes # (Auto) 0.4, Eosinophils # (Auto) 0.1, Basophils # (Auto) 0.1, Nucleated Red Blood Cells % (auto) 0.0, Anion Gap , Glomerular Filtration Rate > 60.0, Lactic Acid Level 0.9, Calcium Level 8.7L, Total Bilirubin 0.4, Direct Bilirubin < 0.1, Aspartate Amino Transf (AST/SGOT) 13, Alanine Aminotransferase (ALT/SGPT) 22, Alkaline Phosphatase 68, Total Creatine Kinase 68, Creatine Kinase MB < 1.0, Creatine Kinase MB Relative Index 1.47, Troponin I < 0.02, VS-Nvo-V-Type Natriuretic Peptide 202H, Total Protein 6.7, Albumin 2.8L, Albumin/Globulin Ratio 0.7, Thyroid Stimulating Hormone (TSH) 0.908, Thyroxine (T4) 9.1 07/25/20 14:06: Coronavirus (COVID-19)(PCR) NEGATIVE, Influenza Type A (RT-PCR) NEGATIVE, Influenza Type B (RT-PCR) NEGATIVE, Respiratory Syncytial Virus (PCR) NEGATIVE 07/26/20 07:09: Nucleated Red Blood Cells % (auto) 0.0, Anion Gap 4L, Glomerular Filtration Rate > 60.0, Calcium Level 9.8, Magnesium Level 2.4 CBC/BMP Laboratory Tests 07/25/20 12:58 07/26/20 07:09 Microbiology Microbiology 07/25/20 Blood Culture, Received Pending 07/25/20 Blood Culture, Received Pending Discharge Medications Scheduled Alprazolam (Alprazolam) 0.25 Mg Tablet, 0.5 MG PO QHS, (Reported) Cholecalciferol (Vitamin D3) (Vitamin D3) 125 Mcg Capsule, 5,000 UNITS PO DAILY, (Reported) Fluticasone/Umeclidin/Vilanter (Trelegy Ellipta 100-62.5-25) 1 Each Blst.w.dev, 1 PUFF PO DAILY, (Reported) Furosemide (Furosemide) 20 Mg Tablet, 20 MG PO DAILY, (Reported) Gabapentin (Gabapentin) 300 Mg Capsule, 600 MG PO QHS, (Reported) Lisinopril (Lisinopril) 10 Mg Tablet, 10 MG PO DAILY, (Reported) Omeprazole (Omeprazole) 40 Mg Capsule.dr, 40 MG PO DAILY, (Reported) Prednisone (Prednisone) 10 Mg Tablet, 1 TAB PO ASDIRECTED 60mg QD for 5d, then 50mg QD for 5d, then 40mg QD for 5d, then 30mg QD for 5d, then 20mg QD, then 10mg QD. Scheduled PRN Albuterol Sulf (Albuterol Sulfate) 2.5 Mg/3 Ml Vial.neb, 1 VIAL INH QID PRN for SOB/WHEEZING, (Reported) Albuterol Sulfate (Proair Hfa) 8.5 Gm Hfa.aer.ad, 2 PUFF INH Q4H PRN for SHORTNESS OF BREATH, (Reported) Allergies Coded Allergies: cephalexin (Unverified Allergy, Severe, SOB "OUT OF IT", 01/21/19) has received zosyn several times without problem levofloxacin (Unverified Allergy, Severe, SOB "OUT OF IT", 05/21/18) moxifloxacin (Unverified Allergy, Severe, SOB "OUT OF IT", 05/21/18) CECELIA SEGAL MD Jul 26, 2020 10:44
--- NOTE | 2020-07-26 16:55 | ECGEPIP ---
[facility] - ED Test Date: 2020-07-25 Pat Name: RAEGAN BHAT Department: Room: - Gender: Male Second Baker: LR : 1945 Requested By: SHANITA SWEENEY Order Number: [id number] Reading MD: Mary Crowder Measurements Intervals [place] Rate: 94 P: 60 [place]: 116 QRS: 3 QRSD: 118 T: -5 QT: 358 QTc: 447 Interpretive Statements Normal sinus rhythm with sinus arrhythmia Right bundle branch block Electronically Signed on 07-26-2020 16:55:07 EDT by Mary Crowder
== END 2020-07-26 12:05 | disposition home or self-care (01) ==
LOC: M ED 11:53 → M ED INP 15:04 → ENRESERV 15:26 → M MSPAV 15:47
PROVIDERS: ADMIT Internal Medicine; ATTEND Internal Medicine
DX: J44.1 Chronic obstructive pulmonary disease with (acute) exacerbation (principal); J96.11 Chronic respiratory failure with hypoxia; Z99.81 Dependence on supplemental oxygen; G93.41 Metabolic encephalopathy; I27.0 Primary pulmonary hypertension; I50.30 Unspecified diastolic (congestive) heart failure; K21.9 Gastro-esophageal reflux disease without esophagitis; I27.81 Cor pulmonale (chronic); G90.09 Other idiopathic peripheral autonomic neuropathy; Z79.52 Long term (current) use of systemic steroids; Z79.899 Other long term (current) drug therapy; Z88.1 Allergy status to other antibiotic agents; Z87.891 Personal history of nicotine dependence; F41.9 Anxiety disorder, unspecified
CPT/HCPCS: 36415; 71045; 80048; 80076; 82550; 82553; 83605; 83735; 83880; 84145; 84436; 84443; 84484; 85025; 85027; 87040; 87631; 93005; 93041; 94640; 94760; 96374; 96376; 97161; 97165; 99285; G0378; J2930

== ENCOUNTER 2021-01-08 23:55 | Inpatient (IN) | payer MEDICARE ==
[~2021-01-08] VITALS: Ht 170.2 cm; Wt 72.0 kg
[~2021-01-08 23:55] MED LIST changes: -CEFD1CAP8 PO; +CEFD300C41 PO; -OMEP-221 PO; +OMEP40CA4 PO; +OMEP40CA5 PO; -OMEP40CA97 PO; +TREL1AER PO
[2021-01-09] MEDS ORDERED: LEVALBUTEROL 1.25 MG/0.5 ML CONCENTRATE NEB NEB ONE
[2021-01-09 00:17] LABS: ABG BASE EXCESS 8.5 (-2.0-2.0); ABG HCO3 35.9 MEQ/L (22.0-26.0); ABG O2 SATURATION 98.8 % (95.0-99.0); ABG PARTIAL PRESSURE O2 137.4 mmHg (75.0-100.0); ABG STANDARD HCO3 32.4 MEQ/L (22.0-26.0); ABG TOTAL CO2 37.8 MEQ/L (23.0-31.0)
[2021-01-09 00:18] LABS: BASO # 0.1 10^3/uL (0.0-0.2); BASO % 0.4 % (0.0-1.0); EOS % 0.1 % (0.0-3.0); HEMATOCRIT 41.3 % (42.0-52.0); HEMOGLOBIN 12.7 g/dl (13.5-17.5); LYMPH # 0.8 10^3/uL (1.5-5.0); LYMPH % 5.2 % (24.0-44.0); MEAN CORPUSCULAR HEMOGLOBIN 31.3 pg (27.0-33.0); MEAN CORPUSCULAR HGB CONC 30.8 g/dl (32.0-36.5); MEAN CORPUSCULAR VOLUME 101.7 fl (80.0-96.0); MONO # 0.6 10^3/uL (0.0-0.8); NEUTROPHILS # 14.5 10^3/uL (1.5-8.5); NEUTROPHILS % 89.9 % (36.0-66.0); PLATELET COUNT, AUTOMATED 234 10^3/uL (150-450); RED BLOOD COUNT 4.06 10^6/uL (4.30-6.10); WHITE BLOOD COUNT 16.1 10^3/uL (4.0-10.0)
[2021-01-09 00:46] LABS: ALBUMIN 2.8 GM/DL (3.2-5.2); ALT/SGPT 21 U/L (12-78); BILIRUBIN,TOTAL 0.8 MG/DL (0.2-1.0); BLOOD UREA NITROGEN 22 MG/DL (7-18); CALCIUM LEVEL 8.7 MG/DL (8.8-10.2); CARBON DIOXIDE LEVEL 38 MEQ/L (21-32); CHLORIDE LEVEL 97 MEQ/L (98-107); CREATININE FOR GFR 1.01 MG/DL (0.70-1.30); GLOMERULAR FILTRATION RATE > 60.0 (>42); GLUCOSE, FASTING 112 MG/DL (70-100); MAGNESIUM LEVEL 1.5 MG/DL (1.8-2.4); POTASSIUM SERUM 3.9 MEQ/L (3.5-5.1); SODIUM LEVEL 140 MEQ/L (136-145); TOTAL PROTEIN 6.6 GM/DL (6.4-8.2)
[2021-01-09 01:16] LABS: RSV AMPLIFICATION NEGATIVE (NEGATIVE)
[2021-01-09] MEDS ORDERED: NS 1,000 ML IV ONE (02:35)
[2021-01-09 02:58] LABS: ABG BASE EXCESS 6.1 (-2.0-2.0); ABG HCO3 33.3 MEQ/L (22.0-26.0); ABG O2 SATURATION 99.1 % (95.0-99.0); ABG PARTIAL PRESSURE CO2 60.1 mmHg (35.0-45.0); ABG PARTIAL PRESSURE O2 151.6 mmHg (75.0-100.0); ABG STANDARD HCO3 30.1 MEQ/L (22.0-26.0); ABG TOTAL CO2 35.1 MEQ/L (23.0-31.0); ABG pH (ARTERIAL) 7.361 UNITS (7.350-7.450)
[2021-01-09] MEDS ORDERED: IPRATROPIUM 0.5MG/ALBUTEROL 2.5MG INH SOL UD 3ML (DUONEB) NEB ONE ×2 (03:10)
[2021-01-09] MEDS ORDERED: cefTRIAXone SOD 1 GM in D5W MINI-BAG PLUS 50 ML IV ONE (04:20)
[2021-01-09] MEDS ORDERED: AZITHROMYCIN INJ 500 MG, VIAL MATE ADAPTER 1 EACH in NS 250 ML IV ONE (04:20)
[2021-01-09] MEDS ORDERED: MAG SULF 1GM/100ML (MAG RUN) 1 GM in IV 1 EA IV ONE ×5 (04:35→08:20)
[2021-01-09] MEDS ORDERED: methylPREDNISolone 125MG 2ML VIAL IV ONE (05:00)
[2021-01-09] MEDS ORDERED: BUDE10.7 INH (05:03)
[2021-01-09] MEDS ORDERED: PRED10TA2 PO (05:04)
[2021-01-09] MEDS ORDERED: IPRA2IN NEB (05:05)
[2021-01-09] MEDS ORDERED: LevoFLOXacin IV 750 MG in IV 1 EA IV SCH (05:10)
[2021-01-09] MEDS ORDERED: ACETAMINOPHEN TAB 650MG DOSE (2X325MG) PO PRN (05:10)
[2021-01-09] MEDS ORDERED: MOM 30ML SUSPENSION UDC PO PRN (05:10)
[2021-01-09] MEDS ORDERED: HOME MED LIST COMPLETE! XX SCH (05:10)
[2021-01-09] MEDS ORDERED: MAALOX 30 ML SUSP *UDC PO PRN (05:10)
[2021-01-09] MEDS ORDERED: ALBUTEROL SULFATE 2.5 MG/0.5 ML INH NEB SOLN NEB PRN (05:10)
[2021-01-09] MEDS ORDERED: ISOVUE-370 76% 100ML VIAL As Ordered ONE (05:23)
[2021-01-09] MEDS ORDERED: NALOXONE INJ 0.4MG/1ML VIAL (J2310 PER 1MG) IV STA (05:38)
[2021-01-09 06:56] LABS: HEMATOCRIT 35.9 % (42.0-52.0); MEAN CORPUSCULAR HEMOGLOBIN 31.9 pg (27.0-33.0); MEAN CORPUSCULAR HGB CONC 30.6 g/dl (32.0-36.5); MEAN CORPUSCULAR VOLUME 104.1 fl (80.0-96.0); PLATELET COUNT, AUTOMATED 206 10^3/uL (150-450); RED BLOOD COUNT 3.45 10^6/uL (4.30-6.10); WHITE BLOOD COUNT 16.4 10^3/uL (4.0-10.0)
[2021-01-09 07:05] LABS: INR 1.36; PROTHROMBIN TIME 17.2 SECONDS (12.7-14.5)
[2021-01-09 07:06] LABS: PARTIAL THROMBOPLASTIN TIME 34.4 SECONDS (25.9-37.0)
[2021-01-09 07:19] LABS: BLOOD UREA NITROGEN 23 MG/DL (7-18); CALCIUM LEVEL 8.4 MG/DL (8.8-10.2); CARBON DIOXIDE LEVEL 35 MEQ/L (21-32); CHLORIDE LEVEL 96 MEQ/L (98-107); CREATININE FOR GFR 1.06 MG/DL (0.70-1.30); GLOMERULAR FILTRATION RATE > 60.0 (>42); GLUCOSE, FASTING 198 MG/DL (70-100); SODIUM LEVEL 138 MEQ/L (136-145)
[2021-01-09] MEDS ORDERED: IPRATROPIUM 0.5MG/ALBUTEROL 2.5MG INH SOL UD 3ML (DUONEB) NEB SCH (08:00)
[2021-01-09] MEDS ORDERED: LR 1,000 ML IV ONE (08:15)
[2021-01-09] MEDS ORDERED: MEROPENEM INJ 2 GM in NS 100 ML IV SCH (08:20)
[2021-01-09] MEDS ORDERED: ASPIRIN 300 MG SUPP PR STA (08:24)
[2021-01-09 08:49] LABS: ABG BASE EXCESS 6.8 (-2.0-2.0); ABG HCO3 33.2 MEQ/L (22.0-26.0); ABG PARTIAL PRESSURE CO2 56.4 mmHg (35.0-45.0); ABG PARTIAL PRESSURE O2 105.7 mmHg (75.0-100.0); ABG STANDARD HCO3 30.6 MEQ/L (22.0-26.0); ABG pH (ARTERIAL) 7.388 UNITS (7.350-7.450)
[2021-01-09] MEDS ORDERED: PANTOPRAZOLE 40MG TAB (PROTONIX) PO SCH (09:00)
[2021-01-09] MEDS ORDERED: ENOXAPARIN 40MG/0.4ML SYRINGE (J1650 PER 10MG) SC SCH (09:00)
[2021-01-09 09:30] LABS: CHOLESTEROL LEVEL 200 MG/DL (<200); CHOLESTEROL RISK RATIO 2.531 (<5); HDL CHOLESTEROL 79 MG/DL (>40); LDL CHOLESTEROL 106 MG/DL (<100); NON-HDL-C 121 MG/DL; THYROID STIMULATING HORMONE 0.194 uIU/ML (0.358-3.740); TRIGLYCERIDES LEVEL 76 MG/DL (<150)
[2021-01-09] MEDS ORDERED: GLUCAGON INJ 1MG VIAL SC PRN (09:50)
[2021-01-09] MEDS ORDERED: GLUCOSE 4GM CHEW TABLET PO PRN (09:50)
[2021-01-09] MEDS ORDERED: DEXTROSE 50% 50 ML SYRINGE IV PRN (09:50)
[2021-01-09 10:02] LABS: T UPTAKE 40 % (33-40); THYROXINE (T4) 7.5 UG/DL (4.5-12.0)
[2021-01-09 10:20] LABS: HEMOGLOBIN A1c 5.8 %
[2021-01-09] MEDS: PANTOPRAZOLE 40MG VIAL (C9113 PER 1) IV SCH (10:26)
[2021-01-09] MEDS: MEROPENEM INJ 1 GM in IV 1 EA IV SCH ×2 (11:48→19:09)
[2021-01-09] MEDS: methylPREDNISolone 125MG 2ML VIAL IV SCH ×3 (11:48→23:00)
[2021-01-09] MEDS: NS 1,000 ML IV SCH ×2 (11:48→18:20)
[2021-01-09] MEDS: IPRATROPIUM 0.5MG/ALBUTEROL 2.5MG INH SOL UD 3ML (DUONEB) NEB SCH ×4 (12:00→23:58)
[2021-01-09] MEDS ORDERED: methylPREDNISolone 125MG 2ML VIAL IV SCH (13:00)
[2021-01-10] VITALS (22 sets, daily range): BP systolic 123–140; BP diastolic 58–83; O2SAT 80–98
[2021-01-10] MEDS: MEROPENEM INJ 1 GM in IV 1 EA IV SCH ×3 (02:32→18:22)
[2021-01-10] MEDS: NS 1,000 ML IV SCH (02:33)
[2021-01-10] MEDS: IPRATROPIUM 0.5MG/ALBUTEROL 2.5MG INH SOL UD 3ML (DUONEB) NEB SCH ×6 (03:30→23:52)
[2021-01-10] MEDS: methylPREDNISolone 125MG 2ML VIAL IV SCH ×4 (05:18→21:39)
[2021-01-10 06:26] LABS: HEMATOCRIT 33.8 % (42.0-52.0); HEMOGLOBIN 10.6 g/dl (13.5-17.5); MEAN CORPUSCULAR HEMOGLOBIN 31.7 pg (27.0-33.0); MEAN CORPUSCULAR HGB CONC 31.4 g/dl (32.0-36.5); MEAN CORPUSCULAR VOLUME 101.2 fl (80.0-96.0); PLATELET COUNT, AUTOMATED 224 10^3/uL (150-450); RED BLOOD COUNT 3.34 10^6/uL (4.30-6.10); WHITE BLOOD COUNT 16.9 10^3/uL (4.0-10.0)
[2021-01-10 06:55] LABS: ALBUMIN 2.3 GM/DL (3.2-5.2); ALT/SGPT 17 U/L (12-78); BILIRUBIN,TOTAL 0.3 MG/DL (0.2-1.0); BLOOD UREA NITROGEN 26 MG/DL (7-18); CALCIUM LEVEL 8.5 MG/DL (8.8-10.2); CARBON DIOXIDE LEVEL 33 MEQ/L (21-32); CHLORIDE LEVEL 104 MEQ/L (98-107); CREATININE FOR GFR 0.87 MG/DL (0.70-1.30); GLOMERULAR FILTRATION RATE > 60.0 (>42); GLUCOSE, FASTING 136 MG/DL (70-100); POTASSIUM SERUM 3.7 MEQ/L (3.5-5.1); SODIUM LEVEL 143 MEQ/L (136-145); TOTAL PROTEIN 5.7 GM/DL (6.4-8.2)
[2021-01-10] MEDS: PANTOPRAZOLE 40MG VIAL (C9113 PER 1) IV SCH (08:55)
[2021-01-10] MEDS: FUROSEMIDE 20 MG TAB PO SCH (15:18)
[2021-01-10] MEDS ORDERED: GABAPENTIN 300 MG CAP PO SCH (21:00)
[2021-01-10] MEDS ORDERED: ALPRAZolam 0.5 MG TAB PO SCH (21:00)
[2021-01-11] VITALS (11 sets, daily range): BP systolic 100–140; BP diastolic 55–70; O2SAT 83–98
[2021-01-11] MEDS: IPRATROPIUM 0.5MG/ALBUTEROL 2.5MG INH SOL UD 3ML (DUONEB) NEB SCH ×4 (01:50→15:59)
[2021-01-11] MEDS: MEROPENEM INJ 1 GM in IV 1 EA IV SCH ×2 (02:59→10:47)
[2021-01-11] MEDS: methylPREDNISolone 125MG 2ML VIAL IV SCH ×2 (05:23→10:47)
[2021-01-11 06:10] LABS: BASO % 0.1 % (0.0-1.0); HEMATOCRIT 33.2 % (42.0-52.0); HEMOGLOBIN 10.3 g/dl (13.5-17.5); LYMPH # 0.2 10^3/uL (1.5-5.0); MEAN CORPUSCULAR HEMOGLOBIN 31.7 pg (27.0-33.0); MEAN CORPUSCULAR VOLUME 102.2 fl (80.0-96.0); MONO # 0.3 10^3/uL (0.0-0.8); MONO % 2.8 % (2.0-8.0); NEUTROPHILS # 11.3 10^3/uL (1.5-8.5); NEUTROPHILS % 94.3 % (36.0-66.0); PLATELET COUNT, AUTOMATED 230 10^3/uL (150-450); RED BLOOD COUNT 3.25 10^6/uL (4.30-6.10)
[2021-01-11 06:44] LABS: BLOOD UREA NITROGEN 29 MG/DL (7-18); CALCIUM LEVEL 8.7 MG/DL (8.8-10.2); CARBON DIOXIDE LEVEL 33 MEQ/L (21-32); CHLORIDE LEVEL 106 MEQ/L (98-107); CREATININE FOR GFR 0.82 MG/DL (0.70-1.30); GLOMERULAR FILTRATION RATE > 60.0 (>42); GLUCOSE, FASTING 119 MG/DL (70-100); POTASSIUM SERUM 4.7 MEQ/L (3.5-5.1); SODIUM LEVEL 142 MEQ/L (136-145)
[2021-01-11] MEDS ORDERED: BREZTRI AEROSPHERE INH SCH (09:00)
[2021-01-11] MEDS ORDERED: NON-FORMULARY 1 EA EA INH SCH (09:00)
[2021-01-11] MEDS: PANTOPRAZOLE 40MG VIAL (C9113 PER 1) IV SCH (10:45)
[2021-01-11] MEDS: FUROSEMIDE 20 MG TAB PO SCH (10:47)
[2021-01-11] MEDS ORDERED: PRED10TA2 PO (13:54)
[2021-01-11] MEDS ORDERED: LISI10TA22 PO (13:54)
[2021-01-11] MEDS ORDERED: FURO20TA2 PO (13:54)
[2021-01-12 15:07] LABS: MYCOPLASMA PNEUMONIAE IgG <100 U/mL (0-99); MYCOPLASMA PNEUMONIAE IgM <770 U/mL (0-769)
[2021-01-14 17:07] LABS: BODY FLUID CULTURE Not indicated. (.); LEGIONELLA ANTIGEN URINE Negative (Negative); ORGANISM ID Not indicated. (.); SPECIMEN SOURCE Urine (.); URINE STREP PNEUMONIAE ANTIGEN Negative (Negative)
== END 2021-01-11 16:37 | disposition home or self-care (01) | DRG 71 ==
LOC: M ED 23:55 → M ED INP 01-09 05:09 → M PCU 01-10 01:27
PROVIDERS: ADMIT Internal Medicine; ATTEND Internal Medicine
DX: G93.41 Metabolic encephalopathy (principal); R64 Cachexia; J96.11 Chronic respiratory failure with hypoxia; J44.1 Chronic obstructive pulmonary disease with (acute) exacerbation; E87.2 Acidosis; I27.20 Pulmonary hypertension, unspecified; J84.10 Pulmonary fibrosis, unspecified; Z99.81 Dependence on supplemental oxygen; Z79.52 Long term (current) use of systemic steroids; I10 Essential (primary) hypertension; K21.9 Gastro-esophageal reflux disease without esophagitis; F41.9 Anxiety disorder, unspecified; I27.81 Cor pulmonale (chronic); Z79.899 Other long term (current) drug therapy; Z88.8 Allergy status to other drugs, medicaments and biological substances; E83.42 Hypomagnesemia; G62.9 Polyneuropathy, unspecified

== ENCOUNTER → 2021-01-28 | Outpatient (CLI) | payer MEDICARE ==
[~2021-01-28] MED LIST changes: +BARIUM SULFATE 700 MG TABLET (E-Z-DISK) As Ordered ONE; +BUDE10.7 INH; +E-Z-PAQUE 96% w/w SUSP 176GM BTL As Ordered ONE; +IPRA2IN NEB; +VARIBAR NECTAR 40% w/v 240ML SUSP BTL As Ordered ONE; +VARIBAR PUDDING 40% w/v 230ML TUBE As Ordered ONE
== END ==
LOC: M RAD 13:03
PROVIDERS: ATTEND Family Medicine
DX: R47.02 Dysphasia (principal)

== ENCOUNTER → 2021-03-01 | Outpatient (REF) | payer MEDICARE ==
[~2021-03-01] MED LIST changes: -BARIUM SULFATE 700 MG TABLET (E-Z-DISK) As Ordered ONE; -E-Z-PAQUE 96% w/w SUSP 176GM BTL As Ordered ONE; -VARIBAR NECTAR 40% w/v 240ML SUSP BTL As Ordered ONE; -VARIBAR PUDDING 40% w/v 230ML TUBE As Ordered ONE
== END ==
LOC: M LAB REF 17:28
PROVIDERS: ATTEND Family Medicine
DX: J44.1 Chronic obstructive pulmonary disease with (acute) exacerbation (principal)

== ENCOUNTER 2021-05-15 07:49 | Inpatient (IN) | payer MEDICARE ==
[~2021-05-15] VITALS: Ht 170.2 cm; Wt 67.5 kg
[2021-05-15] MEDS: COMBIVENT RESPIMAT 100-20MCG INHALER 4GM INH SCH (08:24)
[2021-05-15 08:37] LABS: ABG BASE EXCESS 6.5 (-2.0-2.0); ABG HCO3 32.5 MEQ/L (22.0-26.0); ABG O2 SATURATION 99.4 % (95.0-99.0); ABG PARTIAL PRESSURE CO2 52.4 mmHg (35.0-45.0); ABG PARTIAL PRESSURE O2 220.2 mmHg (75.0-100.0); ABG STANDARD HCO3 30.5 MEQ/L (22.0-26.0); ABG TOTAL CO2 34.1 MEQ/L (23.0-31.0)
[2021-05-15 08:51] LABS: BASO % 0.4 % (0.0-1.0); EOS # 0.2 10^3/uL (0.0-0.5); HEMATOCRIT 35.3 % (42.0-52.0); HEMOGLOBIN 11.3 g/dl (13.5-17.5); LYMPH # 0.6 10^3/uL (1.5-5.0); LYMPH % 7.4 % (24.0-44.0); MEAN CORPUSCULAR HEMOGLOBIN 32.8 pg (27.0-33.0); MEAN CORPUSCULAR VOLUME 102.3 fl (80.0-96.0); MONO # 0.6 10^3/uL (0.0-0.8); MONO % 7.7 % (2.0-8.0); NEUTROPHILS # 6.3 10^3/uL (1.5-8.5); NEUTROPHILS % 81.1 % (36.0-66.0); RED BLOOD COUNT 3.45 10^6/uL (4.30-6.10); WHITE BLOOD COUNT 7.8 10^3/uL (4.0-10.0)
[2021-05-15] MEDS ORDERED: ACETAMINOPHEN 500 MG TAB PO ONE (08:55)
[2021-05-15] MEDS ORDERED: FURO40TA2 PO (09:01)
[2021-05-15] MEDS ORDERED: LISI10TA22 PO (09:01)
[2021-05-15] MEDS ORDERED: HOME MED LIST COMPLETE! XX SCH (09:20)
[2021-05-15 10:19] LABS: ALBUMIN 2.8 GM/DL (3.2-5.2); ALT/SGPT 21 U/L (12-78); BILIRUBIN,DIRECT < 0.1 MG/DL (0.0-0.2); BILIRUBIN,TOTAL 0.3 MG/DL (0.2-1.0); BLOOD UREA NITROGEN 19 MG/DL (7-18); CALCIUM LEVEL 8.9 MG/DL (8.8-10.2); CARBON DIOXIDE LEVEL 37 MEQ/L (21-32); CHLORIDE LEVEL 101 MEQ/L (98-107); CREATININE FOR GFR 0.89 MG/DL (0.70-1.30); GLOMERULAR FILTRATION RATE > 60.0 (>42); GLUCOSE, FASTING 97 MG/DL (70-100); NT-PRO BNP 642 PG/ML (<125); POTASSIUM SERUM 4.1 MEQ/L (3.5-5.1); SODIUM LEVEL 143 MEQ/L (136-145); TOTAL PROTEIN 6.3 GM/DL (6.4-8.2)
[2021-05-15] MEDS ORDERED: ISOVUE-370 76% 100ML VIAL As Ordered ONE (10:50)
[2021-05-15] MEDS ORDERED: ACETAMINOPHEN TAB 650MG DOSE (2X325MG) PO PRN (12:30)
[2021-05-15] MEDS: cefTRIAXone SOD 1 GM in D5W MINI-BAG PLUS 50 ML IV SCH (13:53)
[2021-05-15] MEDS ORDERED: cefTRIAXone SOD 1 GM in D5W MINI-BAG PLUS 50 ML IV SCH (14:00)
[2021-05-15] MEDS: ALBUTEROL SULFATE 2.5 MG/0.5 ML INH NEB SOLN NEB SCH ×3 (15:21→23:01)
[2021-05-15 15:45] VITALS: BP 141/77
[2021-05-15] MEDS: AZITHROMYCIN INJ 500 MG, VIAL MATE ADAPTER 1 EACH in NS 250 ML IV SCH (16:14)
[2021-05-15] MEDS: dexameTHASONE 20MG/5ML VIAL (J1100 PER 1MG) IV SCH (17:39)
[2021-05-15 18:00] VITALS: BP 112/79
[2021-05-15] MEDS: SYMBICORT 160/4.5MCG INHALER 6GM INH SCH (19:29)
[2021-05-15 20:00] VITALS: BP 111/78
[2021-05-15] MEDS: GABAPENTIN 300 MG CAP PO SCH (20:53)
[2021-05-15] MEDS: OMEPRAZOLE 20MG CAP PO SCH (20:53)
[2021-05-15] MEDS: DOCUSATE SODIUM 100MG CAPSULE PO SCH (20:53)
[2021-05-15] MEDS: ALPRAZolam 0.5 MG TAB PO SCH (20:54)
[2021-05-16] MEDS: dexameTHASONE 20MG/5ML VIAL (J1100 PER 1MG) IV SCH (04:41)
[2021-05-16] MEDS: ALBUTEROL SULFATE 2.5 MG/0.5 ML INH NEB SOLN NEB SCH ×5 (04:55→19:20)
[2021-05-16 06:00] VITALS: BP 157/81
[2021-05-16 06:08] LABS: BASO % 0.1 % (0.0-1.0); EOS % 0.1 % (0.0-3.0); HEMATOCRIT 38.1 % (42.0-52.0); LYMPH # 0.7 10^3/uL (1.5-5.0); LYMPH % 6.4 % (24.0-44.0); MEAN CORPUSCULAR HEMOGLOBIN 31.6 pg (27.0-33.0); MEAN CORPUSCULAR HGB CONC 31.5 g/dl (32.0-36.5); MEAN CORPUSCULAR VOLUME 100.3 fl (80.0-96.0); MONO # 0.5 10^3/uL (0.0-0.8); MONO % 4.5 % (2.0-8.0); NEUTROPHILS # 9.2 10^3/uL (1.5-8.5); NEUTROPHILS % 88.2 % (36.0-66.0); PLATELET COUNT, AUTOMATED 218 10^3/uL (150-450); WHITE BLOOD COUNT 10.4 10^3/uL (4.0-10.0)
[2021-05-16 06:22] LABS: BLOOD UREA NITROGEN 23 MG/DL (7-18); CALCIUM LEVEL 8.8 MG/DL (8.8-10.2); CARBON DIOXIDE LEVEL 39 MEQ/L (21-32); CHLORIDE LEVEL 99 MEQ/L (98-107); CREATININE FOR GFR 0.89 MG/DL (0.70-1.30); GLOMERULAR FILTRATION RATE > 60.0 (>42); GLUCOSE, FASTING 139 MG/DL (70-100); POTASSIUM SERUM 4.6 MEQ/L (3.5-5.1); SODIUM LEVEL 139 MEQ/L (136-145)
[2021-05-16] MEDS: SYMBICORT 160/4.5MCG INHALER 6GM INH SCH ×2 (07:16→19:19)
[2021-05-16] MEDS: DOCUSATE SODIUM 100MG CAPSULE PO SCH ×2 (09:00→20:05)
[2021-05-16] MEDS: OMEPRAZOLE 20MG CAP PO SCH ×2 (09:49→20:06)
[2021-05-16] MEDS: cefTRIAXone SOD 1 GM in D5W MINI-BAG PLUS 50 ML IV SCH (13:44)
[2021-05-16 14:00] VITALS: BP 120/76
[2021-05-16] MEDS: AZITHROMYCIN INJ 500 MG, VIAL MATE ADAPTER 1 EACH in NS 250 ML IV SCH (14:29)
[2021-05-16] MEDS: GABAPENTIN 300 MG CAP PO SCH (20:05)
[2021-05-16] MEDS: ALPRAZolam 0.5 MG TAB PO SCH (20:06)
[2021-05-16 22:00] VITALS: BP 123/77
[2021-05-17] MEDS: ALBUTEROL SULFATE 2.5 MG/0.5 ML INH NEB SOLN NEB SCH ×6 (00:11→19:26)
[2021-05-17 05:01] VITALS: BP 127/81
[2021-05-17 05:48] LABS: BASO % 0.2 % (0.0-1.0); HEMATOCRIT 41.2 % (42.0-52.0); HEMOGLOBIN 12.8 g/dl (13.5-17.5); LYMPH # 0.7 10^3/uL (1.5-5.0); LYMPH % 5.6 % (24.0-44.0); MEAN CORPUSCULAR HEMOGLOBIN 31.9 pg (27.0-33.0); MEAN CORPUSCULAR HGB CONC 31.1 g/dl (32.0-36.5); MEAN CORPUSCULAR VOLUME 102.7 fl (80.0-96.0); MONO # 0.6 10^3/uL (0.0-0.8); MONO % 4.9 % (2.0-8.0); NEUTROPHILS # 10.4 10^3/uL (1.5-8.5); NEUTROPHILS % 88.6 % (36.0-66.0); PLATELET COUNT, AUTOMATED 214 10^3/uL (150-450); RED BLOOD COUNT 4.01 10^6/uL (4.30-6.10); WHITE BLOOD COUNT 11.8 10^3/uL (4.0-10.0)
[2021-05-17 06:07] LABS: BLOOD UREA NITROGEN 24 MG/DL (7-18); CARBON DIOXIDE LEVEL 35 MEQ/L (21-32); CHLORIDE LEVEL 102 MEQ/L (98-107); GLOMERULAR FILTRATION RATE > 60.0 (>42); GLUCOSE, FASTING 87 MG/DL (70-100); SODIUM LEVEL 141 MEQ/L (136-145)
[2021-05-17] MEDS: SYMBICORT 160/4.5MCG INHALER 6GM INH SCH ×2 (07:20→19:26)
[2021-05-17] MEDS: DOCUSATE SODIUM 100MG CAPSULE PO SCH ×2 (08:06→20:04)
[2021-05-17] MEDS: OMEPRAZOLE 20MG CAP PO SCH ×2 (08:06→20:05)
[2021-05-17] MEDS ORDERED: CEFD300C41 PO (08:52)
[2021-05-17] MEDS ORDERED: AZIT500T5 PO (08:52)
[2021-05-17] MEDS ORDERED: PRED10TA2 PO (08:52)
[2021-05-17] MEDS ORDERED: predniSONE 10 MG TAB PO SCH (09:00)
[2021-05-17] MEDS ORDERED: dexameTHASONE 4 MG/ML 1ML VIAL (J1100 PER 1MG) IV ONE (09:15)
[2021-05-17] MEDS ORDERED: IPRATROPIUM 0.5MG/ALBUTEROL 2.5MG INH SOL UD 3ML (DUONEB) NEB ONE (11:30)
[2021-05-17 11:55] LABS: ABG HCO3 32.2 MEQ/L (22.0-26.0); ABG O2 SATURATION 97.1 % (95.0-99.0); ABG PARTIAL PRESSURE O2 90.6 mmHg (75.0-100.0); ABG STANDARD HCO3 29.9 MEQ/L (22.0-26.0); ABG TOTAL CO2 33.8 MEQ/L (23.0-31.0); ABG pH (ARTERIAL) 7.401 UNITS (7.350-7.450)
[2021-05-17 14:00] VITALS: BP 121/77
[2021-05-17] MEDS: cefTRIAXone SOD 1 GM in D5W MINI-BAG PLUS 50 ML IV SCH (14:09)
[2021-05-17] MEDS: AZITHROMYCIN INJ 500 MG, VIAL MATE ADAPTER 1 EACH in NS 250 ML IV SCH (15:11)
[2021-05-17] MEDS: dexameTHASONE 20MG/5ML VIAL (J1100 PER 1MG) IV SCH (17:56)
[2021-05-17] MEDS: GABAPENTIN 300 MG CAP PO SCH (20:04)
[2021-05-17] MEDS: ALPRAZolam 0.5 MG TAB PO SCH (20:04)
[2021-05-17 22:00] VITALS: BP 121/82
[2021-05-18] MEDS: ALBUTEROL SULFATE 2.5 MG/0.5 ML INH NEB SOLN NEB SCH ×3 (00:36→07:30)
[2021-05-18 04:58] LABS: BASO % 0.2 % (0.0-1.0); HEMATOCRIT 35.7 % (42.0-52.0); HEMOGLOBIN 11.2 g/dl (13.5-17.5); LYMPH # 0.3 10^3/uL (1.5-5.0); LYMPH % 4.6 % (24.0-44.0); MEAN CORPUSCULAR HEMOGLOBIN 31.7 pg (27.0-33.0); MEAN CORPUSCULAR HGB CONC 31.4 g/dl (32.0-36.5); MEAN CORPUSCULAR VOLUME 101.1 fl (80.0-96.0); MONO # 0.3 10^3/uL (0.0-0.8); MONO % 4.8 % (2.0-8.0); NEUTROPHILS # 5.6 10^3/uL (1.5-8.5); NEUTROPHILS % 89.6 % (36.0-66.0); PLATELET COUNT, AUTOMATED 190 10^3/uL (150-450); RED BLOOD COUNT 3.53 10^6/uL (4.30-6.10); WHITE BLOOD COUNT 6.3 10^3/uL (4.0-10.0)
[2021-05-18 05:09] LABS: BLOOD UREA NITROGEN 29 MG/DL (7-18); CALCIUM LEVEL 8.7 MG/DL (8.8-10.2); CARBON DIOXIDE LEVEL 34 MEQ/L (21-32); CHLORIDE LEVEL 106 MEQ/L (98-107); CREATININE FOR GFR 0.71 MG/DL (0.70-1.30); GLOMERULAR FILTRATION RATE > 60.0 (>42); GLUCOSE, FASTING 134 MG/DL (70-100); POTASSIUM SERUM 4.4 MEQ/L (3.5-5.1); SODIUM LEVEL 142 MEQ/L (136-145)
[2021-05-18] MEDS: dexameTHASONE 20MG/5ML VIAL (J1100 PER 1MG) IV SCH (05:26)
[2021-05-18 06:00] VITALS: BP 121/82
[2021-05-18] MEDS: SYMBICORT 160/4.5MCG INHALER 6GM INH SCH (07:30)
[2021-05-18 09:00] VITALS: BP 113/79
[2021-05-18] MEDS: OMEPRAZOLE 20MG CAP PO SCH (09:30)
[2021-05-18] MEDS: DOCUSATE SODIUM 100MG CAPSULE PO SCH (09:31)
== END 2021-05-18 11:02 | disposition home or self-care (01) | DRG 871 ==
LOC: EDBD 07:49 → M ED 07:49 → M ED INP 12:27 → M MSPAV 15:34
PROVIDERS: ADMIT Internal Medicine Nephrology; ATTEND Internal Medicine Nephrology
DX: A41.9 Sepsis, unspecified organism (principal); G93.41 Metabolic encephalopathy; J44.0 Chronic obstructive pulmonary disease with (acute) lower respiratory infection; J96.12 Chronic respiratory failure with hypercapnia; J96.11 Chronic respiratory failure with hypoxia; I50.32 Chronic diastolic (congestive) heart failure; I11.0 Hypertensive heart disease with heart failure; J20.9 Acute bronchitis, unspecified; I27.20 Pulmonary hypertension, unspecified; K21.9 Gastro-esophageal reflux disease without esophagitis; F41.9 Anxiety disorder, unspecified; R13.10 Dysphagia, unspecified; Z77.090 Contact with and (suspected) exposure to asbestos; G62.9 Polyneuropathy, unspecified; Z79.52 Long term (current) use of systemic steroids; Z79.899 Other long term (current) drug therapy; Z88.8 Allergy status to other drugs, medicaments and biological substances

== ENCOUNTER 2021-07-05 05:42 | Inpatient (IN) | payer MEDICARE ==
[2021-07-05] VITALS (7 sets, daily range): BP systolic 109–113; BP diastolic 67–74; O2SAT 97–98
[~2021-07-05] VITALS: Ht 167.6 cm; Wt 63.8 kg
[~2021-07-05 05:42] MED LIST changes: +ALBU2.5V10 INH; -ALBU83IN INH; +FURO40TA2 PO
[2021-07-05] MEDS ORDERED: ACETAMINOPHEN 650 MG SUPP PR ONE (06:00)
[2021-07-05 06:19] LABS: ABG HCO3 34.1 MEQ/L (22.0-26.0); ABG O2 SATURATION 98.9 % (95.0-99.0); ABG PARTIAL PRESSURE CO2 53.6 mmHg (35.0-45.0); ABG PARTIAL PRESSURE O2 141.5 mmHg (75.0-100.0); ABG STANDARD HCO3 31.8 MEQ/L (22.0-26.0); ABG TOTAL CO2 35.7 MEQ/L (23.0-31.0); ABG pH (ARTERIAL) 7.421 UNITS (7.350-7.450)
[2021-07-05] MEDS ORDERED: FURO20TA2 PO (06:19)
[2021-07-05 06:30] LABS: BASO # 0.1 10^3/uL (0.0-0.2); BASO % 0.7 % (0.0-1.0); EOS # 0.2 10^3/uL (0.0-0.5); EOS % 1.9 % (0.0-3.0); HEMATOCRIT 41.8 % (42.0-52.0); LYMPH # 0.7 10^3/uL (1.5-5.0); LYMPH % 7.4 % (24.0-44.0); MEAN CORPUSCULAR HEMOGLOBIN 32.2 pg (27.0-33.0); MEAN CORPUSCULAR HGB CONC 31.1 g/dl (32.0-36.5); MEAN CORPUSCULAR VOLUME 103.5 fl (80.0-96.0); MONO # 0.7 10^3/uL (0.0-0.8); MONO % 7.6 % (2.0-8.0); NEUTROPHILS # 7.6 10^3/uL (1.5-8.5); NEUTROPHILS % 80.6 % (36.0-66.0); PLATELET COUNT, AUTOMATED 266 10^3/uL (150-450); RED BLOOD COUNT 4.04 10^6/uL (4.30-6.10); WHITE BLOOD COUNT 9.4 10^3/uL (4.0-10.0)
[2021-07-05] MEDS ORDERED: MEROPENEM INJ 2 GM in NS 100 ML IV ONE (07:00)
[2021-07-05] MEDS ORDERED: NS 2,020 ML in IV 1 EA IV ONE (07:00)
[2021-07-05 07:01] LABS: ALT/SGPT 15 U/L (12-78); BILIRUBIN,DIRECT 0.1 MG/DL (0.0-0.2); BILIRUBIN,TOTAL 0.4 MG/DL (0.2-1.0); BLOOD UREA NITROGEN 17 MG/DL (7-18); CARBON DIOXIDE LEVEL 36 MEQ/L (21-32); CHLORIDE LEVEL 99 MEQ/L (98-107); CREATININE FOR GFR 1.23 MG/DL (0.70-1.30); GLOMERULAR FILTRATION RATE > 60.0 (>42); GLUCOSE, FASTING 94 MG/DL (70-100); NT-PRO BNP 237 PG/ML (<125); POTASSIUM SERUM 4.7 MEQ/L (3.5-5.1); SODIUM LEVEL 141 MEQ/L (136-145); THYROXINE (T4) 8.3 UG/DL (4.5-12.0); TOTAL PROTEIN 6.4 GM/DL (6.4-8.2)
[2021-07-05] MEDS ORDERED: LIDOCAINE 2% 5ML JELLY UROJET TOP PRN (07:15)
[2021-07-05] MEDS ORDERED: MEROPENEM INJ 1 GM in IV 1 EA IV ONE ×2 (07:30→08:00)
[2021-07-05] MEDS ORDERED: OSELTAMIVIR PHOSPHATE 75 MG CAP (TAMIFLU) PO ONE (08:40)
[2021-07-05] MEDS ORDERED: ISOVUE-370 76% 100ML VIAL As Ordered ONE (08:48)
[2021-07-05] MEDS ORDERED: STIO1AER PO (09:21)
[2021-07-05] MEDS ORDERED: VENTAER INH (09:21)
[2021-07-05] MEDS ORDERED: GABA600T4 PO (09:21)
[2021-07-05] MEDS ORDERED: MUCI600T31 PO ×2 (09:21→09:23)
[2021-07-05] MEDS ORDERED: D 50CAP3 PO (09:21)
[2021-07-05] MEDS ORDERED: ALPR0.5T3 PO (09:22)
[2021-07-05] MEDS ORDERED: HOME MED LIST COMPLETE! XX SCH (09:25)
[2021-07-05] MEDS ORDERED: ACETAMINOPHEN TAB 650MG DOSE (2X325MG) PO PRN (10:15)
[2021-07-05] MEDS ORDERED: ALBUTEROL 90 MCG/ACT 8GM HFA INHALER INH PRN (10:15)
[2021-07-05] MEDS ORDERED: MAALOX 30 ML SUSP *UDC PO PRN (10:15)
[2021-07-05] MEDS ORDERED: predniSONE 20 MG TAB PO SCH (10:15)
[2021-07-05 11:30] LABS: MAGNESIUM LEVEL 1.9 MG/DL (1.8-2.4)
[2021-07-05] MEDS ORDERED: IPRATROPIUM HFA INHALER 12.9 GRAMS (ATROVENT HFA) INH SCH (12:00)
[2021-07-05] MEDS: methylPREDNISolone 40MG 1ML VIAL IV SCH ×2 (12:06→20:00)
[2021-07-05] MEDS: IPRATROPIUM 0.02% SOLN 0.5MG 2.5ML NEB INH SCH ×3 (12:46→20:00)
[2021-07-05] MEDS: LEVALBUTEROL 1.25 MG/0.5 ML CONCENTRATE NEB INH SCH ×3 (12:46→20:00)
[2021-07-05] MEDS: OMEPRAZOLE 20MG CAP PO SCH (12:51)
[2021-07-05] MEDS: ENOXAPARIN 40MG/0.4ML SYRINGE (J1650 PER 10MG) SC SCH ×2 (12:51→12:53)
[2021-07-05] MEDS: CALCIUM/VITAMIN D 500 MG TAB PO SCH ×2 (12:51→21:16)
[2021-07-05] MEDS: FUROSEMIDE 20 MG TAB PO SCH (15:40)
[2021-07-05] MEDS: OSELTAMIVIR PHOSPHATE 30MG CAPSULE PO SCH (21:15)
[2021-07-05] MEDS: guaiFENesin ER 600 MG TAB PO SCH (21:15)
[2021-07-05] MEDS: GABAPENTIN 300 MG CAP PO SCH (21:15)
[2021-07-06] VITALS (20 sets, daily range): BP systolic 108–134; BP diastolic 58–89; O2SAT 91–97
[2021-07-06] MEDS: methylPREDNISolone 40MG 1ML VIAL IV SCH ×3 (04:00→20:27)
[2021-07-06] MEDS: LEVALBUTEROL 1.25 MG/0.5 ML CONCENTRATE NEB INH SCH ×6 (04:00→19:47)
[2021-07-06] MEDS: IPRATROPIUM 0.02% SOLN 0.5MG 2.5ML NEB INH SCH ×6 (04:00→19:47)
[2021-07-06 05:56] LABS: BASO % 0.2 % (0.0-1.0); HEMOGLOBIN 11.4 g/dl (13.5-17.5); LYMPH # 0.3 10^3/uL (1.5-5.0); LYMPH % 4.9 % (24.0-44.0); MEAN CORPUSCULAR HEMOGLOBIN 31.8 pg (27.0-33.0); MEAN CORPUSCULAR HGB CONC 31.7 g/dl (32.0-36.5); MEAN CORPUSCULAR VOLUME 100.3 fl (80.0-96.0); MONO # 0.3 10^3/uL (0.0-0.8); MONO % 4.1 % (2.0-8.0); NEUTROPHILS # 5.5 10^3/uL (1.5-8.5); NEUTROPHILS % 90.1 % (36.0-66.0); PLATELET COUNT, AUTOMATED 226 10^3/uL (150-450); RED BLOOD COUNT 3.59 10^6/uL (4.30-6.10); WHITE BLOOD COUNT 6.1 10^3/uL (4.0-10.0)
[2021-07-06 06:21] LABS: MAGNESIUM LEVEL 2.3 MG/DL (1.8-2.4)
[2021-07-06] MEDS: ENOXAPARIN 40MG/0.4ML SYRINGE (J1650 PER 10MG) SC SCH (08:48)
[2021-07-06] MEDS: CALCIUM/VITAMIN D 500 MG TAB PO SCH ×2 (08:48→20:28)
[2021-07-06] MEDS: OSELTAMIVIR PHOSPHATE 30MG CAPSULE PO SCH ×2 (08:49→20:28)
[2021-07-06] MEDS: OMEPRAZOLE 20MG CAP PO SCH (08:49)
[2021-07-06] MEDS: FUROSEMIDE 20 MG TAB PO SCH (08:49)
[2021-07-06] MEDS ORDERED: OSELTAMIVIR PHOSPHATE 75 MG CAP (TAMIFLU) PO SCH (09:00)
[2021-07-06 13:28] LABS: ALBUMIN 2.5 GM/DL (3.2-5.2); ALT/SGPT 16 U/L (12-78); BILIRUBIN,TOTAL 0.3 MG/DL (0.2-1.0); BLOOD UREA NITROGEN 23 MG/DL (7-18); CALCIUM LEVEL 9.5 MG/DL (8.8-10.2); CARBON DIOXIDE LEVEL 33 MEQ/L (21-32); CHLORIDE LEVEL 103 MEQ/L (98-107); CREATININE FOR GFR 0.87 MG/DL (0.70-1.30); GLOMERULAR FILTRATION RATE > 60.0 (>42); GLUCOSE, FASTING 137 MG/DL (70-100); POTASSIUM SERUM 4.8 MEQ/L (3.5-5.1); SODIUM LEVEL 139 MEQ/L (136-145); TOTAL PROTEIN 5.7 GM/DL (6.4-8.2)
[2021-07-06] MEDS: guaiFENesin ER 600 MG TAB PO SCH (20:28)
[2021-07-06] MEDS: GABAPENTIN 300 MG CAP PO SCH (20:28)
[2021-07-07] VITALS (10 sets, daily range): BP systolic 118–143; BP diastolic 67–77; O2SAT 93–98
[2021-07-07] MEDS: LEVALBUTEROL 1.25 MG/0.5 ML CONCENTRATE NEB INH SCH ×4 (04:00→11:41)
[2021-07-07] MEDS: IPRATROPIUM 0.02% SOLN 0.5MG 2.5ML NEB INH SCH ×4 (04:00→11:41)
[2021-07-07] MEDS: methylPREDNISolone 40MG 1ML VIAL IV SCH ×2 (05:24→11:57)
[2021-07-07 06:07] LABS: BASO % 0.3 % (0.0-1.0); HEMOGLOBIN 12.3 g/dl (13.5-17.5); LYMPH # 0.3 10^3/uL (1.5-5.0); MEAN CORPUSCULAR HEMOGLOBIN 31.3 pg (27.0-33.0); MEAN CORPUSCULAR VOLUME 104.3 fl (80.0-96.0); MONO # 0.7 10^3/uL (0.0-0.8); MONO % 8.4 % (2.0-8.0); NEUTROPHILS # 6.9 10^3/uL (1.5-8.5); NEUTROPHILS % 86.7 % (36.0-66.0); PLATELET COUNT, AUTOMATED 233 10^3/uL (150-450); RED BLOOD COUNT 3.93 10^6/uL (4.30-6.10)
[2021-07-07 06:30] LABS: ALBUMIN 2.5 GM/DL (3.2-5.2); ALT/SGPT 20 U/L (12-78); BILIRUBIN,TOTAL 0.2 MG/DL (0.2-1.0); BLOOD UREA NITROGEN 27 MG/DL (7-18); CALCIUM LEVEL 9.8 MG/DL (8.8-10.2); CARBON DIOXIDE LEVEL 32 MEQ/L (21-32); CHLORIDE LEVEL 105 MEQ/L (98-107); CREATININE FOR GFR 0.88 MG/DL (0.70-1.30); GLOMERULAR FILTRATION RATE > 60.0 (>42); GLUCOSE, FASTING 132 MG/DL (70-100); MAGNESIUM LEVEL 2.4 MG/DL (1.8-2.4); POTASSIUM SERUM 4.1 MEQ/L (3.5-5.1); SODIUM LEVEL 143 MEQ/L (136-145); TOTAL PROTEIN 6.2 GM/DL (6.4-8.2)
[2021-07-07] MEDS: ENOXAPARIN 40MG/0.4ML SYRINGE (J1650 PER 10MG) SC SCH (09:00)
[2021-07-07 09:03] LABS: PHOSPHORUS LEVEL 3.1 MG/DL (2.5-4.9)
[2021-07-07] MEDS: OSELTAMIVIR PHOSPHATE 30MG CAPSULE PO SCH (09:56)
[2021-07-07] MEDS: CALCIUM/VITAMIN D 500 MG TAB PO SCH (09:56)
[2021-07-07] MEDS: FUROSEMIDE 20 MG TAB PO SCH (09:57)
[2021-07-07] MEDS: OMEPRAZOLE 20MG CAP PO SCH (09:58)
[2021-07-07] MEDS ORDERED: CALCD50TA PO ×2 (10:24→12:07)
[2021-07-07] MEDS ORDERED: OSEL30CA PO ×2 (10:24→12:07)
[2021-07-07] MEDS ORDERED: PRED10TA2 PO ×2 (10:44→12:07)
[2021-07-07] MEDS ORDERED: NYST50SS SS (16:43)
== END 2021-07-07 12:53 | disposition home or self-care (01) | DRG 871 ==
LOC: M ED 05:42 → EDUNIT# 05:42 → EDBD 05:42 → M ED INP 10:03 → ENRESERV 11:30 → M PCU 12:22
PROVIDERS: ADMIT Internal Medicine; ATTEND Internal Medicine
DX: A41.89 Other specified sepsis (principal); J96.21 Acute and chronic respiratory failure with hypoxia; J96.22 Acute and chronic respiratory failure with hypercapnia; J44.1 Chronic obstructive pulmonary disease with (acute) exacerbation; M87.051 Idiopathic aseptic necrosis of right femur; M87.052 Idiopathic aseptic necrosis of left femur; I27.20 Pulmonary hypertension, unspecified; I27.81 Cor pulmonale (chronic); K21.9 Gastro-esophageal reflux disease without esophagitis; J10.1 Influenza due to other identified influenza virus with other respiratory manifestations; Z79.52 Long term (current) use of systemic steroids; I10 Essential (primary) hypertension; I71.4 Abdominal aortic aneurysm, without rupture; K57.30 Diverticulosis of large intestine without perforation or abscess without bleeding; Z79.899 Other long term (current) drug therapy; Z88.8 Allergy status to other drugs, medicaments and biological substances; Z87.891 Personal history of nicotine dependence; N20.0 Calculus of kidney

== ENCOUNTER → 2021-09-29 | Outpatient (CLI) | payer MEDICARE ==
[~2021-09-29] MED LIST changes: +ALPR0.5T3 PO; +CALCD50TA PO; +D 50CAP3 PO; +GABA600T4 PO; +NYST50SS SS; +OSEL30CA PO; +STIO1AER PO
== END ==
LOC: M RAD 11:32
PROVIDERS: ATTEND Internal Medicine Pulmonary Disease
DX: R91.8 Other nonspecific abnormal finding of lung field (principal)

== ENCOUNTER 2021-10-06 11:37 | Inpatient (IN) | payer MEDICARE ==
[~2021-10-06] VITALS: Ht 167.6 cm; Wt 70.5 kg
[2021-10-06] MEDS ORDERED: ACETAMINOPHEN 325 MG TAB PO ONE (11:55)
[2021-10-06] MEDS ORDERED: MEROPENEM INJ 1 GM in IV 1 EA IV ONE (11:55)
[2021-10-06] MEDS ORDERED: methylPREDNISolone 125MG 2ML VIAL IV ONE (12:05)
[2021-10-06 12:28] LABS: BASO # 0.1 10^3/uL (0.0-0.2); BASO % 0.4 % (0.0-1.0); EOS # 0.1 10^3/uL (0.0-0.5); EOS % 0.4 % (0.0-3.0); HEMATOCRIT 43.6 % (42.0-52.0); HEMOGLOBIN 13.7 g/dl (13.5-17.5); LYMPH # 0.7 10^3/uL (1.5-5.0); LYMPH % 4.2 % (24.0-44.0); MEAN CORPUSCULAR HEMOGLOBIN 32.2 pg (27.0-33.0); MEAN CORPUSCULAR HGB CONC 31.4 g/dl (32.0-36.5); MEAN CORPUSCULAR VOLUME 102.3 fl (80.0-96.0); MONO # 1.2 10^3/uL (0.0-0.8); MONO % 7.8 % (2.0-8.0); NEUTROPHILS # 13.5 10^3/uL (1.5-8.5); NEUTROPHILS % 86.2 % (36.0-66.0); PLATELET COUNT, AUTOMATED 270 10^3/uL (150-450); RED BLOOD COUNT 4.26 10^6/uL (4.30-6.10); WHITE BLOOD COUNT 15.7 10^3/uL (4.0-10.0)
[2021-10-06] MEDS: COMBIVENT RESPIMAT 100-20MCG INHALER 4GM INH SCH ×3 (12:31→13:27)
[2021-10-06 12:33] LABS: VENOUS BASE EXCESS 8.5 (-2.0-2.0); VENOUS HCO3 36.4 MEQ/L (23.0-27.0); VENOUS O2 SATURATION 77.3 % (60.0-80.0); VENOUS PARTIAL PRESSURE CO2 64.7 mmHg (38.0-50.0); VENOUS PARTIAL PRESSURE O2 41.8 mmHg (30.0-50.0); VENOUS PH 7.368 UNITS (7.330-7.430); VENOUS STANDARD HCO3 31.7 MEQ/L; VENOUS TOTAL CO2 38.4 MEQ/L (24.0-28.0)
[2021-10-06 13:13] LABS: ALBUMIN 3.4 GM/DL (3.2-5.2); ALT/SGPT 17 U/L (12-78); BILIRUBIN,DIRECT 0.2 MG/DL (0.0-0.2); BILIRUBIN,TOTAL 0.6 MG/DL (0.2-1.0); BLOOD UREA NITROGEN 23 MG/DL (7-18); CALCIUM LEVEL 9.7 MG/DL (8.8-10.2); CARBON DIOXIDE LEVEL 37 MEQ/L (21-32); CHLORIDE LEVEL 96 MEQ/L (98-107); CREATININE FOR GFR 1.11 MG/DL (0.70-1.30); GLOMERULAR FILTRATION RATE > 60.0 (>42); GLUCOSE, FASTING 114 MG/DL (70-100); POTASSIUM SERUM 3.9 MEQ/L (3.5-5.1); SODIUM LEVEL 136 MEQ/L (136-145); TOTAL PROTEIN 7.1 GM/DL (6.4-8.2)
[2021-10-06] MEDS ORDERED: NS 1,000 ML IV ONE ×2 (14:05→17:55)
[2021-10-06] MEDS ORDERED: VANCOMYCIN HCL 750 MG, VIAL MATE ADAPTER 1 EACH in NS 250 ML IV SCH (14:10)
[2021-10-06] MEDS ORDERED: PIPERACILLIN/TAZOBACTAM SOD 3.375 GM in D5W MINI-BAG PLUS 50 ML IV SCH (14:10)
[2021-10-06] MEDS ORDERED: NS 2,030 ML in IV 1 EA IV ONE (14:15)
[2021-10-06] MEDS ORDERED: IPRA0.00 INH (14:30)
[2021-10-06] MEDS ORDERED: HOME MED LIST COMPLETE! XX SCH (14:35)
[2021-10-06] MEDS ORDERED: ALBUTEROL 90 MCG/ACT 8GM HFA INHALER INH PRN (14:45)
[2021-10-06] MEDS ORDERED: IPRATROPIUM 0.5MG/ALBUTEROL 2.5MG INH SOL UD 3ML (DUONEB) NEB PRN (14:45)
[2021-10-06] MEDS ORDERED: ISOVUE-370 76% 100ML VIAL As Ordered ONE (14:45)
[2021-10-06] MEDS ORDERED: VANCOMYCIN HCL 750 MG, VIAL MATE ADAPTER 1 EACH in D5W 250 ML IV ONE (16:00)
[2021-10-06] MEDS ORDERED: VANCOMYCIN HCL 500 MG in D5W MINI-BAG PLUS 100 ML IV ONE (17:00)
[2021-10-06 17:42] LABS: CK-MB VALUE MASS < 1.0 NG/ML (<3.6); CPK CREATINE PHOSPHOKINASE 50 U/L (39-308)
[2021-10-06] MEDS ORDERED: NS 2,000 ML IV ONE (17:45)
[2021-10-06] MEDS ORDERED: ACETAMINOPHEN TAB 650MG DOSE (2X325MG) PO PRN (19:00)
[2021-10-06] MEDS: NS 1,000 ML IV SCH (19:39)
[2021-10-06] MEDS: cefTRIAXone SOD 2 GM in D5W MINI-BAG PLUS 50 ML IV SCH (19:40)
[2021-10-06] MEDS ORDERED: cefTRIAXone SOD 2 GM in D5W MINI-BAG PLUS 50 ML IV SCH (20:00)
[2021-10-06] MEDS: DOXYCYCLINE HYCLATE 100 MG in D5W MINI-BAG PLUS 100 ML IV SCH (20:37)
[2021-10-06] MEDS: methylPREDNISolone 40MG 1ML VIAL IV SCH (20:38)
[2021-10-06] MEDS: ENOXAPARIN 40MG/0.4ML SYRINGE (J1650 PER 10MG) SC SCH ×2 (20:38→20:51)
[2021-10-06] MEDS: guaiFENesin ER 600 MG TAB PO SCH (20:39)
[2021-10-06] MEDS: GABAPENTIN 300 MG CAP PO SCH (20:39)
[2021-10-06] MEDS ORDERED: DOXYCYCLINE HYCLATE 100 MG in D5W MINI-BAG PLUS 100 ML IV SCH (21:00)
[2021-10-06] MEDS ORDERED: MEROPENEM INJ 1 GM in IV 1 EA IV SCH (21:00)
[2021-10-06 21:37] VITALS: BP 115/69
[2021-10-07] VITALS: BP 123/62
[2021-10-07] MEDS ORDERED: VANCOMYCIN HCL 500 MG in D5W MINI-BAG PLUS 100 ML IV SCH ×2
[2021-10-07] MEDS: NS 1,000 ML IV SCH ×2 (00:25→06:35)
[2021-10-07] MEDS: methylPREDNISolone 40MG 1ML VIAL IV SCH ×3 (00:30→11:35)
[2021-10-07 04:00] VITALS: BP 121/59
[2021-10-07 07:58] VITALS: BP 104/61
[2021-10-07] MEDS ORDERED: predniSONE 10 MG TAB PO SCH (09:00)
[2021-10-07] MEDS ORDERED: predniSONE 50 MG TAB PO SCH (09:00)
[2021-10-07] MEDS: DOXYCYCLINE HYCLATE 100 MG in D5W MINI-BAG PLUS 100 ML IV SCH ×2 (09:04→21:59)
[2021-10-07] MEDS: guaiFENesin ER 600 MG TAB PO SCH ×2 (09:04→20:44)
[2021-10-07 09:23] LABS: BLOOD UREA NITROGEN 20 MG/DL (7-18); CALCIUM LEVEL 8.6 MG/DL (8.8-10.2); CARBON DIOXIDE LEVEL 29 MEQ/L (21-32); CHLORIDE LEVEL 104 MEQ/L (98-107); CREATININE FOR GFR 0.86 MG/DL (0.70-1.30); GLOMERULAR FILTRATION RATE > 60.0 (>42); GLUCOSE, FASTING 151 MG/DL (70-100); MAGNESIUM LEVEL 2.1 MG/DL (1.8-2.4); POTASSIUM SERUM 4.5 MEQ/L (3.5-5.1); SODIUM LEVEL 139 MEQ/L (136-145)
[2021-10-07 09:24] LABS: BASO % 0.1 % (0.0-1.0); HEMATOCRIT 35.1 % (42.0-52.0); LYMPH # 0.3 10^3/uL (1.5-5.0); LYMPH % 2.5 % (24.0-44.0); MEAN CORPUSCULAR HEMOGLOBIN 32.6 pg (27.0-33.0); MEAN CORPUSCULAR HGB CONC 31.6 g/dl (32.0-36.5); MEAN CORPUSCULAR VOLUME 102.9 fl (80.0-96.0); MONO # 0.1 10^3/uL (0.0-0.8); MONO % 1.2 % (2.0-8.0); NEUTROPHILS # 11.5 10^3/uL (1.5-8.5); PLATELET COUNT, AUTOMATED 243 10^3/uL (150-450); RED BLOOD COUNT 3.41 10^6/uL (4.30-6.10); WHITE BLOOD COUNT 12.1 10^3/uL (4.0-10.0)
[2021-10-07 09:31] LABS: HEMOGLOBIN 11.1 g/dl (13.5-17.5)
[2021-10-07] MEDS: CALCIUM/VITAMIN D 500 MG TAB PO SCH ×2 (11:36→20:44)
[2021-10-07] MEDS: VITAMIN D 1,000 INTERNATIONAL UNITS TABLET PO SCH (11:36)
[2021-10-07] MEDS: OMEPRAZOLE 20MG CAP PO SCH (11:37)
[2021-10-07 11:52] VITALS: BP 139/74
[2021-10-07] MEDS: predniSONE 20 MG TAB PO SCH (14:06)
[2021-10-07 16:00] VITALS: BP 135/72
[2021-10-07 20:41] VITALS: BP 157/74
[2021-10-07] MEDS: GABAPENTIN 300 MG CAP PO SCH (20:44)
[2021-10-07] MEDS ORDERED: ALPRAZolam 0.5 MG TAB PO SCH (21:00)
[2021-10-07] MEDS: cefTRIAXone SOD 2 GM in D5W MINI-BAG PLUS 50 ML IV SCH (21:22)
[2021-10-08 00:01] VITALS: BP 143/71
[2021-10-08 03:33] VITALS: BP 126/72
[2021-10-08 05:59] LABS: BASO % 0.1 % (0.0-1.0); HEMATOCRIT 34.2 % (42.0-52.0); HEMOGLOBIN 10.9 g/dl (13.5-17.5); LYMPH # 0.5 10^3/uL (1.5-5.0); LYMPH % 3.8 % (24.0-44.0); MEAN CORPUSCULAR HEMOGLOBIN 32.7 pg (27.0-33.0); MEAN CORPUSCULAR HGB CONC 31.9 g/dl (32.0-36.5); MEAN CORPUSCULAR VOLUME 102.7 fl (80.0-96.0); MONO # 0.7 10^3/uL (0.0-0.8); MONO % 5.5 % (2.0-8.0); NEUTROPHILS # 10.8 10^3/uL (1.5-8.5); NEUTROPHILS % 89.7 % (36.0-66.0); PLATELET COUNT, AUTOMATED 250 10^3/uL (150-450); RED BLOOD COUNT 3.33 10^6/uL (4.30-6.10); WHITE BLOOD COUNT 12.1 10^3/uL (4.0-10.0)
[2021-10-08 06:26] LABS: BLOOD UREA NITROGEN 20 MG/DL (7-18); CALCIUM LEVEL 9.2 MG/DL (8.8-10.2); CARBON DIOXIDE LEVEL 34 MEQ/L (21-32); CHLORIDE LEVEL 104 MEQ/L (98-107); CREATININE FOR GFR 0.83 MG/DL (0.70-1.30); GLOMERULAR FILTRATION RATE > 60.0 (>42); GLUCOSE, FASTING 126 MG/DL (70-100); MAGNESIUM LEVEL 2.3 MG/DL (1.8-2.4); POTASSIUM SERUM 4.3 MEQ/L (3.5-5.1); SODIUM LEVEL 140 MEQ/L (136-145)
[2021-10-08] MEDS ORDERED: CEFD300C41 PO (08:07)
[2021-10-08] MEDS ORDERED: DOXY-350 PO (08:07)
[2021-10-08] MEDS ORDERED: PRED10TA2 PO (08:07)
[2021-10-08 08:26] VITALS: BP 143/70
[2021-10-08] MEDS: predniSONE 20 MG TAB PO SCH (08:43)
[2021-10-08] MEDS: CALCIUM/VITAMIN D 500 MG TAB PO SCH (08:44)
[2021-10-08] MEDS: OMEPRAZOLE 20MG CAP PO SCH (08:44)
[2021-10-08] MEDS: ENOXAPARIN 40MG/0.4ML SYRINGE (J1650 PER 10MG) SC SCH (08:44)
[2021-10-08] MEDS: VITAMIN D 1,000 INTERNATIONAL UNITS TABLET PO SCH (08:44)
[2021-10-08] MEDS: guaiFENesin ER 600 MG TAB PO SCH (08:44)
[2021-10-08] MEDS ORDERED: DOXYCYCLINE HYCLATE 100MG TABLET PO SCH (09:00)
[2021-10-08] MEDS ORDERED: CEFDINIR 300 MG CAP (OMNICEF) PO SCH (09:00)
[2021-10-10] MEDS ORDERED: predniSONE 10 MG TAB PO SCH (09:00)
[2021-10-13] MEDS ORDERED: predniSONE 20 MG TAB PO SCH (09:00)
[2021-10-16] MEDS ORDERED: predniSONE 10 MG TAB PO SCH (09:00)
== END 2021-10-08 13:15 | disposition home or self-care (01) | DRG 871 ==
LOC: M ED 13:28 → M ED INP 14:34 → M PCU 14:34
PROVIDERS: ADMIT Internal Medicine; ATTEND Internal Medicine
DX: A41.9 Sepsis, unspecified organism (principal); J96.22 Acute and chronic respiratory failure with hypercapnia; J96.21 Acute and chronic respiratory failure with hypoxia; J18.9 Pneumonia, unspecified organism; J44.1 Chronic obstructive pulmonary disease with (acute) exacerbation; J44.0 Chronic obstructive pulmonary disease with (acute) lower respiratory infection; I50.32 Chronic diastolic (congestive) heart failure; Z99.81 Dependence on supplemental oxygen; Z79.52 Long term (current) use of systemic steroids; I11.0 Hypertensive heart disease with heart failure; K21.9 Gastro-esophageal reflux disease without esophagitis; G62.9 Polyneuropathy, unspecified; I27.29 Other secondary pulmonary hypertension; I50.812 Chronic right heart failure; F41.9 Anxiety disorder, unspecified; R13.10 Dysphagia, unspecified; Z87.891 Personal history of nicotine dependence; Z20.822 Contact with and (suspected) exposure to COVID-19; Z79.899 Other long term (current) drug therapy; Z88.1 Allergy status to other antibiotic agents; J20.9 Acute bronchitis, unspecified

== ENCOUNTER 2021-11-05 10:10 | Inpatient (IN) | payer MEDICARE ==
[~2021-11-05] VITALS: Ht 170.2 cm; Wt 73.2 kg
[~2021-11-05 10:10] MED LIST changes: +DOXY-350 PO
[2021-11-05] MEDS ORDERED: NS 2,090 ML in IV 1 EA IV ONE (10:25)
[2021-11-05] MEDS ORDERED: ALBUTEROL SULFATE 2.5 MG/0.5 ML INH NEB SOLN INH ONE (10:25)
[2021-11-05] MEDS ORDERED: ACETAMINOPHEN 325 MG TAB PO ONE (10:25)
[2021-11-05] MEDS ORDERED: IBUPROFEN 600MG TAB PO ONE (10:25)
[2021-11-05] MEDS ORDERED: methylPREDNISolone 125MG 2ML VIAL IV ONE (10:25)
[2021-11-05] MEDS ORDERED: IPRATROPIUM 0.5MG/ALBUTEROL 2.5MG INH SOL UD 3ML (DUONEB) NEB ONE (10:25)
[2021-11-05] MEDS ORDERED: PIPERACILLIN/TAZOBACTAM SOD 4.5 GM in D5W MINI-BAG PLUS 50 ML IV ONE (10:30)
[2021-11-05] MEDS ORDERED: VANCOMYCIN HCL 1,500 MG in NS 250 ML IV ONE (10:30)
[2021-11-05] MEDS ORDERED: VANCOMYCIN HCL 750 MG, VIAL MATE ADAPTER 1 EACH in D5W 250 ML IV ONE ×6 (10:40)
[2021-11-05 10:58] LABS: BASO % 0.3 % (0.0-1.0); EOS # 0.1 10^3/uL (0.0-0.5); EOS % 1.4 % (0.0-3.0); HEMATOCRIT 45.7 % (42.0-52.0); HEMOGLOBIN 14.2 g/dl (13.5-17.5); LYMPH # 1.3 10^3/uL (1.5-5.0); LYMPH % 12.5 % (24.0-44.0); MEAN CORPUSCULAR HGB CONC 31.1 g/dl (32.0-36.5); MEAN CORPUSCULAR VOLUME 102.9 fl (80.0-96.0); MONO # 0.7 10^3/uL (0.0-0.8); MONO % 7.1 % (2.0-8.0); NEUTROPHILS # 7.9 10^3/uL (1.5-8.5); NEUTROPHILS % 77.7 % (36.0-66.0); PLATELET COUNT, AUTOMATED 235 10^3/uL (150-450); RED BLOOD COUNT 4.44 10^6/uL (4.30-6.10); WHITE BLOOD COUNT 10.1 10^3/uL (4.0-10.0)
[2021-11-05] MEDS ORDERED: GABA-282 PO (11:09)
[2021-11-05 11:28] LABS: INR 0.98; PROTHROMBIN TIME 13.4 SECONDS (12.7-14.5)
[2021-11-05 11:29] LABS: PARTIAL THROMBOPLASTIN TIME 25.6 SECONDS (25.9-37.0)
[2021-11-05] MEDS ORDERED: ISOVUE-370 76% 100ML VIAL As Ordered ONE (11:33)
[2021-11-05] MEDS ORDERED: PRED10TA2 PO (11:42)
[2021-11-05] MEDS ORDERED: ALPR0.25 PO (11:42)
[2021-11-05 11:54] LABS: ALBUMIN 3.2 GM/DL (3.2-5.2); ALT/SGPT 19 U/L (12-78); AMYLASE 81 U/L (25-115); BILIRUBIN,DIRECT 0.1 MG/DL (0.0-0.2); BILIRUBIN,TOTAL 0.6 MG/DL (0.2-1.0); BLOOD UREA NITROGEN 25 MG/DL (7-18); C REACTIVE PROTEIN QUANTITATIV 5.21 MG/DL (0.00-0.30); CALCIUM LEVEL 9.4 MG/DL (8.8-10.2); CARBON DIOXIDE LEVEL 38 MEQ/L (21-32); CHLORIDE LEVEL 97 MEQ/L (98-107); CREATININE FOR GFR 1.14 MG/DL (0.70-1.30); GLOMERULAR FILTRATION RATE > 60.0 (>42); GLUCOSE, FASTING 99 MG/DL (70-100); POTASSIUM SERUM 4.1 MEQ/L (3.5-5.1); SODIUM LEVEL 137 MEQ/L (136-145); TOTAL PROTEIN 6.6 GM/DL (6.4-8.2)
[2021-11-05] MEDS ORDERED: HOME MED LIST COMPLETE! XX SCH (12:45)
[2021-11-05] MEDS: IPRATROPIUM 0.5MG/ALBUTEROL 2.5MG INH SOL UD 3ML (DUONEB) NEB SCH ×4 (14:25→23:30)
[2021-11-05] MEDS ORDERED: DOXYCYCLINE HYCLATE 100MG TABLET PO ONE (14:45)
[2021-11-05] MEDS: OMEPRAZOLE 20MG CAP PO SCH (14:54)
[2021-11-05] MEDS: ENOXAPARIN 40MG/0.4ML SYRINGE (J1650 PER 10MG) SC SCH (14:54)
[2021-11-05] MEDS: VITAMIN D 1,000 INTERNATIONAL UNITS TABLET PO SCH (14:55)
[2021-11-05] MEDS: NS 1,000 ML IV SCH (15:35)
[2021-11-05 16:23] LABS: ABG BASE EXCESS 3.9 (-2.0-2.0); ABG HCO3 30.1 MEQ/L (22.0-26.0); ABG O2 SATURATION 98.5 % (95.0-99.0); ABG PARTIAL PRESSURE CO2 52.8 mmHg (35.0-45.0); ABG PARTIAL PRESSURE O2 132.4 mmHg (75.0-100.0); ABG TOTAL CO2 31.7 MEQ/L (23.0-31.0); ABG pH (ARTERIAL) 7.374 UNITS (7.350-7.450)
[2021-11-05] MEDS: PIPERACILLIN/TAZOBACTAM SOD 3.375 GM in D5W MINI-BAG PLUS 50 ML IV SCH (19:32)
[2021-11-05] MEDS: methylPREDNISolone 40MG 1ML VIAL IV SCH (19:34)
[2021-11-05 20:00] VITALS: O2SAT 99
[2021-11-05 20:18] VITALS: BP 90/50
[2021-11-05] MEDS ORDERED: NS 500 ML IV ONE (20:55)
[2021-11-05 21:00] VITALS: O2SAT 98
[2021-11-05] MEDS: guaiFENesin ER 600 MG TAB PO SCH (21:29)
[2021-11-05] MEDS: DOXYCYCLINE HYCLATE 100MG TABLET PO SCH (21:29)
[2021-11-05] MEDS: GABAPENTIN 300 MG CAP PO SCH (21:29)
[2021-11-05 21:45] VITALS: BP 92/48
[2021-11-05 22:00] VITALS: O2SAT 99
[2021-11-05 23:00] VITALS: O2SAT 97
[2021-11-06] VITALS (24 sets, daily range): BP systolic 90–140; BP diastolic 58–82; O2SAT 95–100
[2021-11-06] MEDS: PIPERACILLIN/TAZOBACTAM SOD 3.375 GM in D5W MINI-BAG PLUS 50 ML IV SCH ×5 (00:23→23:44)
[2021-11-06] MEDS: NS 1,000 ML IV SCH (00:30)
[2021-11-06] MEDS: methylPREDNISolone 40MG 1ML VIAL IV SCH ×3 (02:32→18:12)
[2021-11-06] MEDS: IPRATROPIUM 0.5MG/ALBUTEROL 2.5MG INH SOL UD 3ML (DUONEB) NEB SCH ×6 (03:19→23:22)
[2021-11-06] MEDS: COMBIVENT RESPIMAT 100-20MCG INHALER 4GM INH PRN (04:27)
[2021-11-06 05:52] LABS: HEMATOCRIT 32.7 % (42.0-52.0); HEMOGLOBIN 10.4 g/dl (13.5-17.5); MEAN CORPUSCULAR HEMOGLOBIN 33.1 pg (27.0-33.0); MEAN CORPUSCULAR HGB CONC 31.8 g/dl (32.0-36.5); MEAN CORPUSCULAR VOLUME 104.1 fl (80.0-96.0); PLATELET COUNT, AUTOMATED 203 10^3/uL (150-450); RED BLOOD COUNT 3.14 10^6/uL (4.30-6.10); WHITE BLOOD COUNT 13.9 10^3/uL (4.0-10.0)
[2021-11-06 06:54] LABS: BLOOD UREA NITROGEN 23 MG/DL (7-18); CALCIUM LEVEL 7.6 MG/DL (8.8-10.2); CARBON DIOXIDE LEVEL 30 MEQ/L (21-32); CHLORIDE LEVEL 105 MEQ/L (98-107); CREATININE FOR GFR 1.23 MG/DL (0.70-1.30); GLOMERULAR FILTRATION RATE > 60.0 (>42); GLUCOSE, FASTING 129 MG/DL (70-100); MAGNESIUM LEVEL 1.7 MG/DL (1.8-2.4); POTASSIUM SERUM 4.3 MEQ/L (3.5-5.1); SODIUM LEVEL 138 MEQ/L (136-145)
[2021-11-06] MEDS ORDERED: MAG SULF 1GM/100ML (MAG RUN) 1 GM in IV 1 EA IV ONE (08:00)
[2021-11-06] MEDS: ENOXAPARIN 40MG/0.4ML SYRINGE (J1650 PER 10MG) SC SCH (09:00)
[2021-11-06] MEDS: OMEPRAZOLE 20MG CAP PO SCH (09:07)
[2021-11-06] MEDS: DOXYCYCLINE HYCLATE 100MG TABLET PO SCH ×2 (09:08→20:09)
[2021-11-06] MEDS: guaiFENesin ER 600 MG TAB PO SCH ×2 (09:08→20:09)
[2021-11-06] MEDS: VITAMIN D 1,000 INTERNATIONAL UNITS TABLET PO SCH (09:08)
[2021-11-06] MEDS ORDERED: ALPRAZolam 0.25 MG TAB PO PRN (10:25)
[2021-11-06] MEDS: GABAPENTIN 300 MG CAP PO SCH (20:09)
[2021-11-07] VITALS (8 sets, daily range): BP systolic 98–138; BP diastolic 70–80; O2SAT 98–99
[2021-11-07] MEDS: methylPREDNISolone 40MG 1ML VIAL IV SCH (02:18)
[2021-11-07] MEDS: COMBIVENT RESPIMAT 100-20MCG INHALER 4GM INH PRN (02:35)
[2021-11-07] MEDS: IPRATROPIUM 0.5MG/ALBUTEROL 2.5MG INH SOL UD 3ML (DUONEB) NEB SCH ×3 (03:04→11:29)
[2021-11-07] MEDS: PIPERACILLIN/TAZOBACTAM SOD 3.375 GM in D5W MINI-BAG PLUS 50 ML IV SCH (05:01)
[2021-11-07 06:50] LABS: HEMATOCRIT 30.5 % (42.0-52.0); HEMOGLOBIN 9.7 g/dl (13.5-17.5); MEAN CORPUSCULAR HEMOGLOBIN 32.7 pg (27.0-33.0); MEAN CORPUSCULAR HGB CONC 31.8 g/dl (32.0-36.5); MEAN CORPUSCULAR VOLUME 102.7 fl (80.0-96.0); PLATELET COUNT, AUTOMATED 198 10^3/uL (150-450); RED BLOOD COUNT 2.97 10^6/uL (4.30-6.10); WHITE BLOOD COUNT 15.4 10^3/uL (4.0-10.0)
[2021-11-07 07:26] LABS: BLOOD UREA NITROGEN 20 MG/DL (7-18); C REACTIVE PROTEIN QUANTITATIV 8.53 MG/DL (0.00-0.30); CALCIUM LEVEL 7.7 MG/DL (8.8-10.2); CARBON DIOXIDE LEVEL 31 MEQ/L (21-32); CHLORIDE LEVEL 104 MEQ/L (98-107); CREATININE FOR GFR 1.18 MG/DL (0.70-1.30); GLOMERULAR FILTRATION RATE > 60.0 (>42); GLUCOSE, FASTING 145 MG/DL (70-100); MAGNESIUM LEVEL 2.1 MG/DL (1.8-2.4); POTASSIUM SERUM 3.8 MEQ/L (3.5-5.1); SODIUM LEVEL 139 MEQ/L (136-145)
[2021-11-07] MEDS: DOXYCYCLINE HYCLATE 100MG TABLET PO SCH (08:10)
[2021-11-07] MEDS: OMEPRAZOLE 20MG CAP PO SCH (08:10)
[2021-11-07] MEDS: VITAMIN D 1,000 INTERNATIONAL UNITS TABLET PO SCH (08:10)
[2021-11-07] MEDS: guaiFENesin ER 600 MG TAB PO SCH (08:11)
[2021-11-07] MEDS: ENOXAPARIN 40MG/0.4ML SYRINGE (J1650 PER 10MG) SC SCH (08:19)
[2021-11-07] MEDS ORDERED: AUGMENTIN 875 MG TAB PO SCH (09:00)
[2021-11-07] MEDS ORDERED: predniSONE 20 MG TAB PO SCH (09:00)
[2021-11-07] MEDS ORDERED: AMOX875T2 PO (11:37)
[2021-11-07] MEDS ORDERED: DOXY100T PO (11:37)
[2021-11-07] MEDS ORDERED: PRED10TA2 PO (11:37)
[2021-11-08 18:09] LABS: MYCOPLASMA PNEUMONIAE IgG 228 U/mL (0-99); MYCOPLASMA PNEUMONIAE IgM <770 U/mL (0-769)
== END 2021-11-07 15:00 | disposition home or self-care (01) | DRG 871 ==
LOC: M ED 10:10 → EDBD 10:10 → M ED INP 13:27 → ENRESERV 18:26 → M PCU 20:15
PROVIDERS: ADMIT Internal Medicine; ATTEND Internal Medicine
DX: A41.9 Sepsis, unspecified organism (principal); J15.6 Pneumonia due to other Gram-negative bacteria; J69.0 Pneumonitis due to inhalation of food and vomit; J44.1 Chronic obstructive pulmonary disease with (acute) exacerbation; I50.32 Chronic diastolic (congestive) heart failure; E87.2 Acidosis; J44.0 Chronic obstructive pulmonary disease with (acute) lower respiratory infection; J96.12 Chronic respiratory failure with hypercapnia; J96.11 Chronic respiratory failure with hypoxia; I11.0 Hypertensive heart disease with heart failure; I27.20 Pulmonary hypertension, unspecified; I71.4 Abdominal aortic aneurysm, without rupture; K21.9 Gastro-esophageal reflux disease without esophagitis; R13.10 Dysphagia, unspecified; Z99.81 Dependence on supplemental oxygen; R65.20 Severe sepsis without septic shock; E55.9 Vitamin D deficiency, unspecified; F41.9 Anxiety disorder, unspecified; Z79.52 Long term (current) use of systemic steroids; I27.81 Cor pulmonale (chronic); M79.2 Neuralgia and neuritis, unspecified; Z79.899 Other long term (current) drug therapy

== ENCOUNTER → 2021-11-25 | Outpatient (CLI) | payer MEDICARE ==
[~2021-11-25] MED LIST changes: +AMOX875T2 PO; +DOXY100T PO
[2021-11-25 15:14] LABS: HEMATOCRIT 43.3 % (42.0-52.0); HEMOGLOBIN 13.2 g/dl (13.5-17.5); MEAN CORPUSCULAR HEMOGLOBIN 31.8 pg (27.0-33.0); MEAN CORPUSCULAR HGB CONC 30.5 g/dl (32.0-36.5); MEAN CORPUSCULAR VOLUME 104.3 fl (80.0-96.0); RED BLOOD COUNT 4.15 10^6/uL (4.30-6.10); WHITE BLOOD COUNT 13.6 10^3/uL (4.0-10.0)
[2021-11-25 15:15] LABS: BASO # 0.1 10^3/uL (0.0-0.2); BASO % 0.5 % (0.0-1.0); EOS # 0.1 10^3/uL (0.0-0.5); EOS % 0.4 % (0.0-3.0); LYMPH # 0.8 10^3/uL (1.5-5.0); LYMPH % 5.6 % (24.0-44.0); MONO % 7.4 % (2.0-8.0); NEUTROPHILS # 11.5 10^3/uL (1.5-8.5); NEUTROPHILS % 84.4 % (36.0-66.0); PLATELET COUNT, AUTOMATED 279 10^3/uL (150-450)
[2021-11-25 15:43] LABS: BLOOD UREA NITROGEN 26 MG/DL (7-18); CALCIUM LEVEL 10.1 MG/DL (8.8-10.2); CARBON DIOXIDE LEVEL 40 MEQ/L (21-32); CHLORIDE LEVEL 95 MEQ/L (98-107); CREATININE FOR GFR 1.23 MG/DL (0.70-1.30); GLOMERULAR FILTRATION RATE > 60.0 (>42); GLUCOSE, FASTING 123 MG/DL (70-100); POTASSIUM SERUM 4.4 MEQ/L (3.5-5.1); SODIUM LEVEL 141 MEQ/L (136-145)
== END ==
LOC: M PLAIMG 12:59
PROVIDERS: ATTEND Family Medicine
DX: J44.1 Chronic obstructive pulmonary disease with (acute) exacerbation (principal)

== ENCOUNTER → 2021-12-14 | Outpatient (CLI) | payer MEDICARE ==
[~2021-12-14] MED LIST changes: -DOXY-350 PO; +DOXY-444 PO
[2021-12-14 13:57] LABS: BLOOD UREA NITROGEN 32 MG/DL (7-18); CALCIUM LEVEL 9.9 MG/DL (8.8-10.2); CARBON DIOXIDE LEVEL 42 MEQ/L (21-32); CHLORIDE LEVEL 96 MEQ/L (98-107); CREATININE FOR GFR 1.07 MG/DL (0.70-1.30); GLOMERULAR FILTRATION RATE > 60.0 (>42); GLUCOSE, FASTING 109 MG/DL (70-100); NT-PRO BNP 193 PG/ML (<125); SODIUM LEVEL 140 MEQ/L (136-145)
== END ==
LOC: M WUC 09:38
PROVIDERS: ATTEND Nurse Practitioner Adult Health
DX: I50.22 Chronic systolic (congestive) heart failure (principal)